=== PATIENT | female | born 2000 | race Two or more races ===

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

== ENCOUNTER 2021-01-13 06:27 | Emergency (ER) | payer OTHER, SELFPAY ==
--- NOTE | 2021-01-13 | ECG_ITS ---
Test Reason : CHEST PAIN Blood Pressure : / mmHG Vent. Rate : 119 BPM Atrial Rate : 119 BPM P-R Int : 114 ms QRS Dur : 076 ms QT Int : 324 ms P-R-T Axes : 080 088 024 degrees QTc Int : 455 ms Poor data quality Sinus tachycardia Nonspecific ST abnormality Abnormal ECG No previous ECGs available Referred By: Vic Ramirez Electronically Signed By:CHRIST FRANCO MD
--- NOTE | ~2021-01-13 | XR_ITS ---
EXAMINATION: XR CHEST CLINICAL INFORMATION: Chest pain and shortness of breath COMPARISON: Previous chest x-ray June 2020 TECHNIQUE: 2 views of the chest were obtained. FINDINGS: The cardiac and mediastinal contours are normal. The lungs are clear. There is no pleural effusion or pneumothorax. Bony structures are unremarkable. XR/XR chest 2V IMPRESSION: Unremarkable examination.
--- NOTE | ~2021-01-13 | US_ITS ---
EXAMINATION: OB ULTRASOUND LIMITED CLINICAL INFORMATION: Decreased movement. Abdominal pain. COMPARISON: Previous exams most recent 12/18/2020 TECHNIQUE: Transabdominal second trimester OB ultrasound FINDINGS: There is a single viable intrauterine fetus in cephalic position. heart rate is 149 bpm. movement is seen. There is a posterior placenta with grade 1 changes. Amniotic fluid volume is subjectively normal. US/US OB limited IMPRESSION: Single viable intrauterine fetus in cephalic position.
[2021-01-13 06:42] VITALS: BP 113/61; PULSE 120; RESP 16; TEMP 36.1; O2SAT 94; BMI 25.7
--- NOTE | 2021-01-13 07:43 | ED.CHESTPAIN ---
HPI - Chest Pain General Chief Complaint: Chest Pain Stated Complaint: ASTHMA/ABD PAIN Time Seen by Provider: 01/13/21 06:37 Source: patient Mode of arrival: ambulatory Limitations: no limitations History of Present Illness HPI narrative: 20-year-old female, G2, P1, 22 weeks who presents emergency department for evaluation of chest pain abdominal pain. The patient states that she developed chest pain that started yesterday, mid afternoon. She states the pain came on gradually initially was mild but has now become more severe. She describes the pain as a constant, stabbing sensation, worse with breathing, associated with shortness of breath and dyspnea on exertion, the pain is 9/10. The patient points to her anterior and lateral chest bilaterally when asked to localize the pain. She also is complaining of lower abdominal pain. This began last night. She states this pain is intermittent. This pain is a ?crushing sensation which is 9/10 at its worst. The patient states that she cannot feel her baby moving and the baby was very active prior to the onset of her pain. She has not had any vaginal discharge. She denied fever, chills, nausea, vomiting, frequency, urgency or dysuria. The patient has not had a COVID-19 infection and has not had a COVID-19 vaccination. Related Data Home Medications Medication Instructions Recorded Confirmed albuterol sulfate 90 mcg/actuation 2 puff INHALATION Q6H PRN 09/18/20 10/30/20 aerosol inhaler fluticasone 500 mcg-salmeterol 50 1 inh INHALATION BID 09/18/20 mcg/dose blistr powdr for inhalation Previous Rx's Medication Instructions Recorded vits no.130-ferrous fum 1 tab PO DAILY #30 tab 09/18/20 27 mg iron-folic acid 800 mcg tablet cefpodoxime 100 mg PO Q12H #14 tab 09/27/20 ondansetron HCl [Zofran] 4 mg PO Q6H #20 tab 09/27/20 ondansetron 4 mg PO Q6-8H PRN #20 tab 10/12/20 valacyclovir 500 mg tablet 500 mg PO DAILY 30 Days #30 tab 12/31/20 prednisone 60 mg PO DAILY 5 Days #15 tab 01/13/21 Allergies Allergy/AdvReac Type Severity Reaction Status Date / Time sunflower seeds Allergy Mild Unknown Uncoded 10/12/20 01:08 ANIMALS Allergy Unknown SHORTNESS Uncoded 10/12/20 01:08 OF BREATH animals Allergy Unknown Unknown Uncoded 10/12/20 01:08 seasonal Allergy Unknown Unknown Uncoded 10/12/20 01:08 SEASONAL ALLERGIES Allergy Unknown SHORTNESS Uncoded 10/12/20 01:08 OF BREATH SEEDS Allergy Unknown UNKNOWN Uncoded 10/12/20 01:08 Review of Systems Review of Systems: Yes all other systems are reviewed and are negative [facility] Past Medical History [facility] Narrative: The patient has a history of asthma, she denies tobacco and alcohol use. She does smoke marijuana 1-2 times per day. She denies other drug use. Medical History Asthma Herpes Surgical History Hx of wisdom tooth extraction Family History Family History Father Lyme disease Stroke Depression Mother Depression Anxiety History of bipolar disorder Maternal Grandmother Fibromyalgia Depression Anxiety HTN (hypertension) Diabetes mellitus Paternal Grandmother Diabetes mellitus CVD (cardiovascular disease) Paternal Grandfather Diabetes mellitus Social History Social History Household Members: Family and Children Alcohol intake: never Smoking Status: Never smoker Tobacco Type: Cigarette Use of substances other than those prescribed or required for medical reasons: Yes Substance Use Type: Marijuana Last Used Substance: Days (ago) Advance Directives: Yes Advance Directives Information Provided: Yes Advance Directives on File: No Gender identity: female Physical Exam Vital Signs: Vital Signs: Last Vital Signs Temp 97.0 F 01/13/21 06:42 Pulse 113 H 01/13/21 08:58 Resp 16 01/13/21 09:14 BP 113/69 01/13/21 08:13 Pulse Ox 96 01/13/21 08:13 Body Mass Index 25.7 Const: General: cooperative and healthy appearing Orientation/consciousness: oriented to person and oriented to place Limitations: no limitations HENMT: Head: Yes normal to inspection, Yes normocephalic and Yes atraumatic Ears: external ears normal General nose exam: Normal external nose present Face and sinus: Yes normal facial exam Mouth: Normal oral and palatal mucosa present Throat: Yes posterior oropharynx normal Eyes: Periorbital: periorbital findings normal Eyelids: Yes eyelids normal Conjunctivae: conjunctivae normal Sclerae: sclerae normal Corneas: corneas normal Pupils: Equal, round and reactive pupils present Direct Ophthalmoscopy: normal light reflex Neck: Neck: Yes full ROM, Yes no lymphadenopathy, Yes no meningeal signs, Yes trachea midline and Yes supple Chest: Chest palpation & inspection: normal inspection of the chest and tenderness (Moderate anterior chest and bilateral ribs tenderness) Resp: Effort & Inspection: normal respiratory effort and able to speak in complete sentences Auscultation: rhonchi throughout and wheezes throughout Cardio: Rate: regular rate Rhythm: regular rhythm Heart sounds: S1 normal heart sound present, S2 normal heart sound present and no murmurs GI: Inspection: Yes other (Gravid abdomen) Palpation (GI): Soft to palpation, Tenderness to palpation present (GI) in the LLQ (Mild), in the RLQ (Mild) and suprapubicly (Moderate), no guarding, not rigid and No hepatosplenomegaly present : General: Yes no CVA tenderness Back/Spine/Pelvis: Back: no CVA tenderness Cervical Spine: normal cervical lordosis Thoracic/Lumbar Spine: thoracic and lumbar spine normal to inspection Skin: Lesions: no lesions Rashes: no rashes Wounds: no wounds Neuro: General: oriented to person, oriented to place and no meningeal signs Cranial nerves: Yes CN's II-XII intact bilaterally and Yes Equal, round and reactive pupils present Cognition (Neuro): normal cognition Motor exam (neuro): 5/5 motor strength present throughout Extrem: General: Yes normal to inspection and Yes full ROM Psych: Appearance: well kempt Mental Status: mental status grossly normal Speech and movement: Normal speech and movement present Affect: normal affect Attitude: cooperative Thought process: Normal thought process present Thought content: Normal thought content present Course Course Course Narrative: 20-year-old female, G2, P1, who presents emergency department for evaluation of chest pain, abdominal pain and decreased movement. Physical examination revealed that she was afebrile and had a normal blood pressure. The patient is tachycardic with a pulse of 120 and a normal respiratory of 16. The O2 saturation was 94% on room air. Patient does have chest wall tenderness along the costochondral joints and lateral chest, she also has lower abdominal tenderness. Lung exam revealed diffuse wheezing and rhonchi. I did order a CBC, CMP, lipase, D-dimer, chest x-ray, and ultrasound of the patient's abdomen to evaluate the fetus. Patient was ordered to get normal saline IV x1 L and Tylenol 975 mg orally. She was also ordered to get albuterol 2.5 mg nebulizer for her wheezing and rhonchi. 0941: The patient is feeling significantly better after the above treatment, she states that her chest pain is almost completely resolved in her breathing feels better after the albuterol treatment. Repeat lung exam revealed improvement of her wheezing and rhonchi. Laboratory evaluation revealed a slight elevation in D-dimer 235 however I do not think the patient has a pulmonary embolism and her symptoms are more consistent with asthma exacerbation. Ultrasound revealed a single intrauterine with normal heart tones of 149 beats per minute. I did discuss these findings with the patient. Patient will be started on prednisone 60 mg once a day for 5 days, she was given her 1st dose here in the emergency department. She was also advised to use your inhaler 2 puffs 4 times a day for the next 2-3 days to improve her wheezing. She was given verbal and printed instructions, advised to follow-up with her PCP/OBGYN and return to the emergency department for symptoms get worse or strokes on symptoms that are concerning to her. Urinalysis was negative MDM - Chest Pain Lab Data Result diagrams: 01/13/21 08:00 01/13/21 08:00 Labs: Lab Results 01/13/21 01/13/21 01/13/21 Range/Units 08:00 08:00 08:00 WBC 9.5 (4.8-10.8) X10*3/uL RBC 4.37 (4.20-5.50) X10*6/uL Hgb 13.0 (12.0-16.0) g/dl Hct 38.3 (37-47) % MCV 87.6 (80-98) fL MCH 29.7 (27.0-33.0) pg MCHC 33.9 (31.0-35.0) g/dl RDW 13.7 (11.0-16.0) % Plt Count 272 (160-400) X10*3/uL MPV 9.8 (9.4-12.3) fL Immature Gran % (Auto) 0.4 (0.0-0.4) % Neut % (Auto) 89.2 H (45-73) % Lymph % (Auto) 7.4 L (20-40) % [place] % (Auto) 2.8 (2-11) % Eos % (Auto) 0.0 (0-4) % Baso % (Auto) 0.2 (0-2) % Lymph # (Auto) 0.7 L (1.2-4.9) X10*3/uL [place] # (Auto) 0.3 (0.1-1.2) X10*3/uL Eos # (Auto) 0.0 (0.0-0.4) X10*3/uL Baso # (Auto) 0.0 (0.0-0.2) X10*3/uL Abs Immat Gran (auto) 0.04 H (0.00-0.03) X10*3/uL Absolute Neuts (auto) 8.5 H (2.0-8.3) X10*3/uL Absolute Nucleated RBC 0.000 (0.0-0.012) X10*3/uL Nucleated RBC % (auto) 0.0 (0.0-0.2) /100WBC D-Dimer 235 NG/ML Sodium 140 (135-145) mmol/L Potassium 4.4 (3.3-5.1) mmol/L Chloride 107 (96-108) mmol/L Carbon Dioxide 20 L (22-29) mmol/L Anion Gap 17 (12-20) BUN 5 L (9-16) mg/dL Creatinine 0.58 (0.5-1.4) mg/dL Estim Creat Clear Calc 136.9 Estimated GFR > 60 Random Glucose 108 (60-115) mg/dL Calcium 9.0 (8.4-10.2) mg/dL Total Bilirubin 0.5 (0.0-1.0) mg/dL AST 15 (5-31) U/L ALT 12 (0-31) U/L Alkaline Phosphatase 66 D (39-117) U/L Troponin I High Sens (<3.5-17.0) ng/L Total Protein 7.3 (6.5-8.0) g/dL Albumin 3.9 (3.5-5.0) g/dL Lipase 13 (8-78) U/L Urine Color Urine Appearance Urine pH (5.0-8.0) Ur Specific Collins (1.005-1.025) Urine Protein (NEG-TRACE) MG/DL Urine Glucose (UA) (NEG) MG/DL Urine Ketones (NEG) MG/DL Urine Blood (NEG) Urine Nitrite (NEG) Ur Leukocyte Esterase (NEG) 01/13/21 01/13/21 Range/Units 08:00 10:07 WBC (4.8-10.8) X10*3/uL RBC (4.20-5.50) X10*6/uL Hgb (12.0-16.0) g/dl Hct (37-47) % MCV (80-98) fL MCH (27.0-33.0) pg MCHC (31.0-35.0) g/dl RDW (11.0-16.0) % Plt Count (160-400) X10*3/uL MPV (9.4-12.3) fL Immature Gran % (Auto) (0.0-0.4) % Neut % (Auto) (45-73) % Lymph % (Auto) (20-40) % [place] % (Auto) (2-11) % Eos % (Auto) (0-4) % Baso % (Auto) (0-2) % Lymph # (Auto) (1.2-4.9) X10*3/uL [place] # (Auto) (0.1-1.2) X10*3/uL Eos # (Auto) (0.0-0.4) X10*3/uL Baso # (Auto) (0.0-0.2) X10*3/uL Abs Immat Gran (auto) (0.00-0.03) X10*3/uL Absolute Neuts (auto) (2.0-8.3) X10*3/uL Absolute Nucleated RBC (0.0-0.012) X10*3/uL Nucleated RBC % (auto) (0.0-0.2) /100WBC D-Dimer NG/ML Sodium (135-145) mmol/L Potassium (3.3-5.1) mmol/L Chloride (96-108) mmol/L Carbon Dioxide (22-29) mmol/L Anion Gap (12-20) BUN (9-16) mg/dL Creatinine (0.5-1.4) mg/dL Estim Creat Clear Calc Estimated GFR Random Glucose (60-115) mg/dL Calcium (8.4-10.2) mg/dL Total Bilirubin (0.0-1.0) mg/dL AST (5-31) U/L ALT (0-31) U/L Alkaline Phosphatase (39-117) U/L Troponin I High Sens < 3.5 (<3.5-17.0) ng/L Total Protein (6.5-8.0) g/dL Albumin (3.5-5.0) g/dL Lipase (8-78) U/L Urine Color YELLOW Urine Appearance CLEAR Urine pH 6.0 (5.0-8.0) Ur Specific Collins 1.025 (1.005-1.025) Urine Protein NEG (NEG-TRACE) MG/DL Urine Glucose (UA) NEG (NEG) MG/DL Urine Ketones >=80 (NEG) MG/DL Urine Blood NEG (NEG) Urine Nitrite NEG (NEG) Ur Leukocyte Esterase NEG (NEG) Discharge Plan Discharge Clinical Impression: Asthma exacerbation Qualifiers: Asthma severity: moderate Asthma persistence: unspecified Qualified Code(s): J45.901 - Unspecified asthma with (acute) exacerbation Qualifiers: Weeks of gestation: 23 weeks Qualified Code(s): Z3A.23 - 23 weeks gestation of Chest pain Qualifiers: Chest pain type: other chest pain Qualified Code(s): R07.89 - Other chest pain Patient Disposition: Home, Self-Care Instructions: Asthma (ED) Additional Instructions: Your blood work was unremarkable. Your chest x-ray was normal. The ultrasound revealed that you have a single in the uterus with a normal heartbeat which is reassuring. Your chest pain and shortness of breath is most likely secondary to a flare-up of your asthma. Take prednisone 60 mg once a day for 5 days, your given her 1st dose here in the emergency department. Use your albuterol inhaler, 2 puffs 4 times a day for the next 3-4 days to help with your wheezing in her shortness of breath. Take Tylenol (acetaminophen) 500 mg pills, 2 pills every 4 to 6 hours as needed for pain. Follow-up with your doctor in 2 days. Please return to the emergency department if your symptoms get worse or if you develop any symptoms that are concerning to you. Prescriptions: New prednisone 20 mg tablet 60 mg PO DAILY 5 Days Qty: 15 RF: 0 No Action ondansetron 4 mg tablet,disintegrating 4 mg PO Q6-8H PRN (Reason: Nausea And Vomiting) Qty: 20 RF: 0 ondansetron HCl [Zofran] 4 mg tablet 4 mg PO Q6H Qty: 20 RF: 0 cefpodoxime 100 mg tablet 100 mg PO Q12H Qty: 14 RF: 0 fluticasone propion-salmeterol [Advair Diskus] 500-50 mcg/dose blister with device 1 inh inhalation BID RF: 0 albuterol sulfate [ProAir HFA] 90 mcg/actuation HFA aerosol inhaler 2 puff inhalation Q6H PRNRF: 0 Vitamin 27 mg iron- 800 mcg tablet 1 tab PO DAILY Qty: 30 RF: 12 valacyclovir [Valtrex] 500 mg tablet 500 mg PO DAILY 30 Days Qty: 30 RF: 2 Interventions: ED Discharge Assessment Last Done: 01/13/21 10:12 Discharge Date/Time: 01/13/21 10:12
[2021-01-13 07:45] VITALS: PULSE 105
--- NOTE | 2021-01-13 07:51 | PC.NURSE ---
,pt states that she is 22wks and is due 05/16/21.
[2021-01-13 08:06] LABS: MANUAL DIFF FLAG NO
[2021-01-13 08:09] LABS: Basophils Percent Auto 0.2 % (0-2); Hematocrit 38.3 % (37-47); Imm Gran Abs Auto 0.04 X10*3/uL (0.00-0.03); Imm Gran Pct Auto 0.4 % (0.0-0.4); Lymphocytes Absolute Auto 0.7 X10*3/uL (1.2-4.9); Lymphocytes Percent Auto 7.4 % (20-40); Mean Corpuscular HGB Conc 33.9 g/dl (31.0-35.0); Mean Corpuscular Hemoglobin 29.7 pg (27.0-33.0); Mean Corpuscular Volume 87.6 fL (80-98); Mean Platelet Volume 9.8 fL (9.4-12.3); Monocytes Absolute Auto 0.3 X10*3/uL (0.1-1.2); Monocytes Percent Auto 2.8 % (2-11); Neutrophils Absolute Auto 8.5 X10*3/uL (2.0-8.3); Neutrophils Percent Auto 89.2 % (45-73); Platelet Count 272 X10*3/uL (160-400); Red Blood Count 4.37 X10*6/uL (4.20-5.50); Red Cell Distribution Width 13.7 % (11.0-16.0); White Blood Count 9.5 X10*3/uL (4.8-10.8)
[2021-01-13] MEDS: 0.9 % Sodium Chloride 1,000 ML 999 ML IV (08:11)
[2021-01-13] MEDS: Acetaminophen 325 MG TABLET 975 MG PO (08:11)
[2021-01-13 08:13] VITALS: BP 113/69; PULSE 104; RESP 20; O2SAT 96
[2021-01-13 08:17] LABS: D Dimer 235 NG/ML
--- NOTE | 2021-01-13 08:29 | PC.NURSE ---
pt c/o chest tightness - lungs exp wheezing all lobes. md aware.
[2021-01-13 08:37] LABS: Alanine Aminotransferase 12 U/L (0-31); Albumin Level 3.9 g/dL (3.5-5.0); Alkaline Phosphatase 66 U/L (39-117); Anion Gap 17 (12-20); Aspartate Amino Transferase 15 U/L (5-31); Bilirubin Total 0.5 mg/dL (0.0-1.0); Blood Urea Nitrogen 5 mg/dL (9-16); Carbon Dioxide 20 mmol/L (22-29); Chloride 107 mmol/L (96-108); Creatinine Clr Calc Pharmacy 136.9; Estimated Glomerular Filt Rate > 60; Glucose Random 108 mg/dL (60-115); Lipase 13 U/L (8-78); Potassium 4.4 mmol/L (3.3-5.1); Sodium 140 mmol/L (135-145); Total Protein 7.3 g/dL (6.5-8.0)
[2021-01-13 08:41] LABS: Troponin-I High Sensitivity < 3.5 ng/L (<3.5-17.0)
[2021-01-13] MEDS: Albuterol Sulfate (0.083%) 2.5 MG/3 ML VIAL.NEB INHALE (08:57)
[2021-01-13 08:58] VITALS: PULSE 113; O2SAT 98
[2021-01-13 09:14] VITALS: RESP 16
[2021-01-13 10:40] LABS: Glucose Urine UA NEG (NEG); Leukocyte Esterase Urine NEG (NEG); Nitrite Urine NEG (NEG); Specific Gravity - Urine 1.025 (1.005-1.025); Urine Blood NEG (NEG); Urine Ketones >=80 MG/DL (NEG); Urine Protein NEG (NEG-TRACE)
[2021-01-13 10:47] LABS: Appearance Urine CLEAR; Color Urine YELLOW
== END 2021-01-13 10:12 | disposition home or self-care (01) ==
PROVIDERS: Emergency Provider Emergency Medicine Emergency Medical Services
DX: O26.92 Pregnancy related conditions, unspecified, second trimester (principal); Z3A.22 22 weeks gestation of pregnancy; Z79.899 Other long term (current) drug therapy
CPT/HCPCS: 36415; 71046; 76815; 80053; 81003; 83690; 84484; 85025; 85379; 93005; 94640; 96360; 99285

== ENCOUNTER → 2021-01-28 09:02 | Outpatient (BNVA) | payer OTHER, SELFPAY | PROVIDERS: Visit Provider Advanced Practice Midwife | DX: O99.512 Diseases of the respiratory system complicating pregnancy, second trimester (principal); J45.909 Unspecified asthma, uncomplicated; Z91.018 Allergy to other foods; Z3A.24 24 weeks gestation of pregnancy | CPT/HCPCS: 81003; 99212 ==

== ENCOUNTER 2021-02-25 08:46 | Outpatient (REF) | payer OTHER, SELFPAY | END 2021-02-25 08:47 | disposition home or self-care (01) | LOC: HO.LAB 08:46 | PROVIDERS: Visit Provider Advanced Practice Midwife | DX: O26.893 Other specified pregnancy related conditions, third trimester (principal); R10.2 Pelvic and perineal pain; M25.551 Pain in right hip | CPT/HCPCS: 81003; 99212 ==

== ENCOUNTER → 2021-03-11 10:37 | Outpatient (BNVA) | payer OTHER, SELFPAY | PROVIDERS: Visit Provider Advanced Practice Midwife | DX: O36.5930 Maternal care for other known or suspected poor fetal growth, third trimester, not applicable or unspecified (principal); Z3A.30 30 weeks gestation of pregnancy | CPT/HCPCS: 81003; 99212 ==

== ENCOUNTER 2021-03-17 13:52 | Outpatient (REF) | payer OTHER, SELFPAY ==
--- NOTE | ~2021-03-17 | US_ITS ---
EXAMINATION: OBSTETRICAL ULTRASOUND, Follow up HISTORY: 20-year-old at 31.3 weeks Size date discrepancy COMPARISON: 01/13/2021 TECHNIQUE: Real time transabdominal imaging with color and M-mode Doppler. PRESENTATION: Vertex PLACENTA LOCATION: Posterior AMNIOTIC FLUID: Within normal limits, BPP 7.2 cm MEASUREMENTS: 1. Biparietal Diameter: 4.5 cm; 30.1 wks 2. Head Circumference: 27.7 cm; 30.1 wks 3. Abdominal Circumference: 25.5 cm; 29.5 wks 4. Femur Length: 5.8 cm; 30.3 wks 5. Heart Rate: 147 beats per minute WEIGHT: EFW: 1484 grams (3 lbs 4 oz) -- 7 %. BIOPHYSICAL PROFILE: Motion: 2 Tone: 2 Breathin Amniotic Fluid: 2 Total score: 8/8 Doppler evaluation of the umbilical artery showed SD ratio of 2.7 which is within normal range. GESTATIONAL AGE: 1. Established GA: 31.3 wks 2. GA from A: 30.1 wks ESTIMATED DATE OF DELIVERY: 1. Established ERIKA: 05/16/2021 2. ERIKA from [facility]: 05/25/2021 US/US OB follow up IMPRESSION: 1. A single active fetus is in vertex presentation. 2. The size less than dates, EFW corresponds to 7th percentile. Compared to prior exam, there has been less than expected interval growth. 3. Reassuring biophysical profile with normal amniotic fluid volume. 4. Normal umbilical artery Doppler study. She had a term delivery of a healthy infant with weight of 6 lbs. 7 oz. As long as the interval growth is appropriate, she can be managed expectantly until 39 weeks of gestation. Meanwhile, weekly NST, biophysical profile along with UA Doppler should be performed. Thank you very much for this referral. This note was generated with a voice recognition program. Please excuse any errors which may have been overlooked during my review of this note. Sometimes these errors may affect the content or meaning of a given sentence.
--- NOTE | ~2021-03-17 | US_ITS ---
EXAMINATION: OBSTETRICAL ULTRASOUND, Follow up HISTORY: 20-year-old at 31.3 weeks Size date discrepancy COMPARISON: 01/13/2021 TECHNIQUE: Real time transabdominal imaging with color and M-mode Doppler. PRESENTATION: Vertex PLACENTA LOCATION: Posterior AMNIOTIC FLUID: Within normal limits, BPP 7.2 cm MEASUREMENTS: 1. Biparietal Diameter: 4.5 cm; 30.1 wks 2. Head Circumference: 27.7 cm; 30.1 wks 3. Abdominal Circumference: 25.5 cm; 29.5 wks 4. Femur Length: 5.8 cm; 30.3 wks 5. Heart Rate: 147 beats per minute WEIGHT: EFW: 1484 grams (3 lbs 4 oz) -- 7 %. BIOPHYSICAL PROFILE: Motion: 2 Tone: 2 Breathin Amniotic Fluid: 2 Total score: 8/8 Doppler evaluation of the umbilical artery showed SD ratio of 2.7 which is within normal range. GESTATIONAL AGE: 1. Established GA: 31.3 wks 2. GA from [facility]: 30.1 wks ESTIMATED DATE OF DELIVERY: 1. Established ERIKA: 05/16/2021 2. ERIKA from [facility]: 05/25/2021 US/US OB velocimetry umbilical ar IMPRESSION: 1. A single active fetus is in vertex presentation. 2. The size less than dates, EFW corresponds to 7th percentile. Compared to prior exam, there has been less than expected interval growth. 3. Reassuring biophysical profile with normal amniotic fluid volume. 4. Normal umbilical artery Doppler study. She had a term delivery of a healthy with weight of 6 lbs. 7 oz. As long as the interval growth is appropriate, she can be managed expectantly until 39 weeks of gestation. Meanwhile, weekly NST, biophysical profile along with UA Doppler should be performed. Thank you very much for this referral. This note was generated with a voice recognition program. Please excuse any errors which may have been overlooked during my review of this note. Sometimes these errors may affect the content or meaning of a given sentence.
== END 2021-03-17 13:53 | disposition home or self-care (01) ==
LOC: HO.US 13:52
PROVIDERS: Visit Provider Advanced Practice Midwife
DX: O36.5930 Maternal care for other known or suspected poor fetal growth, third trimester, not applicable or unspecified (principal)
CPT/HCPCS: 76816; 76820

== ENCOUNTER 2021-03-19 09:27 | Outpatient (REF) | payer OTHER, SELFPAY | END 2021-03-19 09:28 | disposition home or self-care (01) | LOC: HO.US 09:27 | PROVIDERS: Visit Provider Advanced Practice Midwife | DX: O36.5930 Maternal care for other known or suspected poor fetal growth, third trimester, not applicable or unspecified (principal) | CPT/HCPCS: 59025; 81003; 99212 ==

== ENCOUNTER 2021-03-23 13:51 | Outpatient (REF) | payer OTHER, SELFPAY | END 2021-03-23 13:52 | disposition home or self-care (01) | LOC: HO.LAB 13:51 | PROVIDERS: Visit Provider Obstetrics & Gynecology | DX: O26.893 Other specified pregnancy related conditions, third trimester (principal); R30.0 Dysuria; O36.5930 Maternal care for other known or suspected poor fetal growth, third trimester, not applicable or unspecified; O99.323 Drug use complicating pregnancy, third trimester; F12.10 Cannabis abuse, uncomplicated; Z3A.32 32 weeks gestation of pregnancy | CPT/HCPCS: 59025; 81003; 87086; 87088; 87186; 99212 ==

== ENCOUNTER → 2021-03-25 08:20 | Outpatient (BNVA) | payer OTHER, SELFPAY | PROVIDERS: Visit Provider Advanced Practice Midwife | DX: Z34.93 Encounter for supervision of normal pregnancy, unspecified, third trimester (principal); Z3A.32 32 weeks gestation of pregnancy | CPT/HCPCS: 59025; 99212 ==

== ENCOUNTER 2021-03-26 10:28 | Outpatient (REF) | payer OTHER, SELFPAY ==
--- NOTE | ~2021-03-26 | US_ITS ---
EXAMINATION: US OBSTETRICAL (BIOPHYSICAL PROFILE) CLINICAL INFORMATION: 21-year-old at 32.5 weeks of gestation FDG are COMPARISON: 03/17/2021 TECHNIQUE: Biophysical profile is performed over 30 minutes with assessment of breathing, gross body movement, tone, and qualitative amniotic fluid volume. FINDINGS: POSITION: Cephalic PLACENTA: Posterior without previa AMNIOTIC FLUID INDEX: 13.2 cm CARDIAC ACTIVITY: 138 beats per minute BIOPHYSICAL PROFILE: Motion: 2 Tone: 2 Breathin Amniotic Fluid: 2 The total biophysical score is 8/8 The UA Doppler showed the SD ratio of 3.8 which has been stable. US/US OB velocimetry umbilical ar IMPRESSION: 1. Single intrauterine gestation in vertex position. 2. Reassuring BPP and GARY width normal SD ratio in the umbilical cord Thank you for allowing me to participate in her care. She is to follow-up next week for a repeat growth and testing. This note was generated with a voice recognition program. Please excuse any errors which may have been overlooked during my review of this note. Sometimes these errors may affect the content or meaning of a given sentence.
--- NOTE | ~2021-03-26 | US_ITS ---
EXAMINATION: US OBSTETRICAL (BIOPHYSICAL PROFILE) CLINICAL INFORMATION: 21-year-old at 32.5 weeks of gestation FDG are COMPARISON: 03/17/2021 TECHNIQUE: Biophysical profile is performed over 30 minutes with assessment of breathing, gross body movement, tone, and qualitative amniotic fluid volume. FINDINGS: POSITION: Cephalic PLACENTA: Posterior without previa AMNIOTIC FLUID INDEX: 13.2 cm CARDIAC ACTIVITY: 138 beats per minute BIOPHYSICAL PROFILE: Motion: 2 Tone: 2 Breathin Amniotic Fluid: 2 The total biophysical score is 8/8 The UA Doppler showed the SD ratio of 3.8 which has been stable. US/US OB biophysical profile IMPRESSION: 1. Single intrauterine gestation in vertex position. 2. Reassuring BPP and GARY width normal SD ratio in the umbilical cord Thank you for allowing me to participate in her care. She is to follow-up next week for a repeat growth and testing. This note was generated with a voice recognition program. Please excuse any errors which may have been overlooked during my review of this note. Sometimes these errors may affect the content or meaning of a given sentence.
== END 2021-03-26 10:29 | disposition home or self-care (01) ==
LOC: HO.US 10:28
PROVIDERS: Visit Provider Advanced Practice Midwife
DX: O36.5930 Maternal care for other known or suspected poor fetal growth, third trimester, not applicable or unspecified (principal)
CPT/HCPCS: 76819; 76820

== ENCOUNTER → 2021-03-31 15:04 | Outpatient (BNVA) | payer OTHER, SELFPAY | PROVIDERS: Visit Provider Obstetrics & Gynecology | DX: O36.5930 Maternal care for other known or suspected poor fetal growth, third trimester, not applicable or unspecified (principal); O98.513 Other viral diseases complicating pregnancy, third trimester; B00.9 Herpesviral infection, unspecified; Z3A.33 33 weeks gestation of pregnancy | CPT/HCPCS: 59025; 99212 ==

== ENCOUNTER 2021-04-02 10:43 | Outpatient (REF) | payer OTHER, SELFPAY ==
--- NOTE | ~2021-04-02 | US_ITS ---
EXAMINATION: OBSTETRICAL ULTRASOUND, Follow up HISTORY: 21-year-old at the 33.5 weeks of gestation Size less than dates COMPARISON: 03/26/2021 TECHNIQUE: Real time transabdominal imaging with color and M-mode Doppler. PRESENTATION: Vertex PLACENTA LOCATION: Posterior without previa AMNIOTIC FLUID: GARY 13.8 cm MEASUREMENTS: 1. Biparietal Diameter: 7.96 cm; 32.0 wks 2. Head Circumference: 29.0 cm; 22.0 wks 3. Abdominal Circumference: 28.4 cm; 32.3 wks 4. Femur Length: 5.96 cm; 31.1 wks 5. Heart Rate: 119 beats per minute WEIGHT: EFW: 1864 grams (4 lbs 2 oz) -- 6 %. BIOPHYSICAL PROFILE: Motion: 2 Tone: 2 Breathin Amniotic Fluid: 2 Total score: 8/8 UA Doppler showed the SD ratio of 2.9 which is within normal range. GESTATIONAL AGE: 1. Established GA: 33.5 wks 2. GA from A: 32.0 wks ESTIMATED DATE OF DELIVERY: 1. Established ERIKA: 05/16/2021 2. ERIKA from [facility]: 05/28/2021 US/US OB follow up IMPRESSION: 1. A single active fetus is in vertex presentation 2. Size less than dates. EFW corresponds to 6th percentile. However compared to her prior exam, there has been an appropriate interval growth. 3. Reassuring biophysical profile 4. Normal UA Doppler S/D ratio I reviewed today's ultrasound findings and reassured her that there has been an appropriate interval growth. In addition testing is reassuring along with the Doppler evaluation of the umbilical artery. Patient reports active movements. I recommended that she continue NST weekly along with facet biophysical profile and Doppler evaluation. Thank you very much for this referral. Total time 20 minutes. The time spent was devoted to counseling the patient about the disease and diagnosis, coordinating care including reviewing her records, pertinent lab data and studies, as well as discussing diagnostic evaluation and workup, plan therapeutic interventions and future disposition of care. This includes any additional research needed to obtain further information in formulating the plan of care of this patient. This note was generated with a voice recognition program. Please excuse any errors which may have been overlooked during my review of this note. Sometimes these errors may affect the content or meaning of a given sentence.
--- NOTE | ~2021-04-02 | US_ITS ---
EXAMINATION: OBSTETRICAL ULTRASOUND, Follow up HISTORY: 21-year-old at the 33.5 weeks of gestation Size less than dates COMPARISON: 03/26/2021 TECHNIQUE: Real time transabdominal imaging with color and M-mode Doppler. PRESENTATION: Vertex PLACENTA LOCATION: Posterior without previa AMNIOTIC FLUID: GARY 13.8 cm MEASUREMENTS: 1. Biparietal Diameter: 7.96 cm; 32.0 wks 2. Head Circumference: 29.0 cm; 22.0 wks 3. Abdominal Circumference: 28.4 cm; 32.3 wks 4. Femur Length: 5.96 cm; 31.1 wks 5. Heart Rate: 119 beats per minute WEIGHT: EFW: 1864 grams (4 lbs 2 oz) -- 6 %. BIOPHYSICAL PROFILE: Motion: 2 Tone: 2 Breathin Amniotic Fluid: 2 Total score: 8/8 UA Doppler showed the SD ratio of 2.9 which is within normal range. GESTATIONAL AGE: 1. Established GA: 33.5 wks 2. GA from [facility]: 32.0 wks ESTIMATED DATE OF DELIVERY: 1. Established ERIKA: 05/16/2021 2. ERIKA from [facility]: 05/28/2021 US/US OB velocimetry umbilical ar IMPRESSION: 1. A single active fetus is in vertex presentation 2. Size less than dates. EFW corresponds to 6th percentile. However compared to her prior exam, there has been an appropriate interval growth. 3. Reassuring biophysical profile 4. Normal UA Doppler S/D ratio I reviewed today's ultrasound findings and reassured her that there has been an appropriate interval growth. In addition testing is reassuring along with the Doppler evaluation of the umbilical artery. Patient reports active movements. I recommended that she continue NST weekly along with facet biophysical profile and Doppler evaluation. Thank you very much for this referral. Total time 20 minutes. The time spent was devoted to counseling the patient about the disease and diagnosis, coordinating care including reviewing her records, pertinent lab data and studies, as well as discussing diagnostic evaluation and workup, plan therapeutic interventions and future disposition of care. This includes any additional research needed to obtain further information in formulating the plan of care of this patient. This note was generated with a voice recognition program. Please excuse any errors which may have been overlooked during my review of this note. Sometimes these errors may affect the content or meaning of a given sentence.
[2021-04-02 15:41] LABS: Syphilis Screen Nonreactive (Nonreactive)
[2021-04-03 13:22] LABS: Cytomegalovirus Ab IgG <0.60 U/mL; Cytomegalovirus Ab IgM <30.00 AU/mL; Toxoplasma IgG Antibody <7.20 IU/mL; Toxoplasma IgM Antibody <8.00 AU/mL
== END 2021-04-02 10:44 | disposition home or self-care (01) ==
LOC: HO.US 10:43
PROVIDERS: Obstetrics & Gynecology; Visit Provider Advanced Practice Midwife
DX: O36.5930 Maternal care for other known or suspected poor fetal growth, third trimester, not applicable or unspecified (principal); Z3A.33 33 weeks gestation of pregnancy
CPT/HCPCS: 36415; 76816; 76820; 81003; 86644; 86645; 86777; 86778; 86780; 99212

== ENCOUNTER → 2021-04-07 11:04 | Outpatient (BNVA) | payer OTHER, SELFPAY | PROVIDERS: Visit Provider Advanced Practice Midwife | DX: O36.5930 Maternal care for other known or suspected poor fetal growth, third trimester, not applicable or unspecified (principal); O09.293 Supervision of pregnancy with other poor reproductive or obstetric history, third trimester; Z86.32 Personal history of gestational diabetes; Z3A.34 34 weeks gestation of pregnancy | CPT/HCPCS: 59025; 81003; 99212 ==

== ENCOUNTER 2021-04-09 10:58 | Outpatient (REF) | payer OTHER, SELFPAY ==
--- NOTE | ~2021-04-09 | US_ITS ---
EXAMINATION: US OBSTETRICAL (BIOPHYSICAL PROFILE) CLINICAL INFORMATION: A 21-year-old at 34.5 weeks of gestation SGA COMPARISON: 04/02/2021 TECHNIQUE: Biophysical profile is performed over 30 minutes with assessment of breathing, gross body movement, tone, and qualitative amniotic fluid volume. FINDINGS: POSITION: Cephalic PLACENTA: Posterior without previa AMNIOTIC FLUID INDEX: 14.3 cm CARDIAC ACTIVITY: 152 beats per minute BIOPHYSICAL PROFILE: Motion: 2 Tone: 2 Breathin Amniotic Fluid: 2 The total biophysical score is 8/8 UA Doppler showed SD ratio of 3.4. US/US OB biophysical profile IMPRESSION: 1. Single intrauterine gestation in vertex position. 2. Reassuring BPP and GARY 3. Normal SD on UA Doppler Continue weekly testing. She is to return next week for of the growth. Thank you for allowing me to participate in her care. This note was generated with a voice recognition program. Please excuse any errors which may have been overlooked during my review of this note. Sometimes these errors may affect the content or meaning of a given sentence.
--- NOTE | ~2021-04-09 | US_ITS ---
EXAMINATION: US OBSTETRICAL (BIOPHYSICAL PROFILE) CLINICAL INFORMATION: A 21-year-old at 34.5 weeks of gestation SGA COMPARISON: 04/02/2021 TECHNIQUE: Biophysical profile is performed over 30 minutes with assessment of breathing, gross body movement, tone, and qualitative amniotic fluid volume. FINDINGS: POSITION: Cephalic PLACENTA: Posterior without previa AMNIOTIC FLUID INDEX: 14.3 cm CARDIAC ACTIVITY: 152 beats per minute BIOPHYSICAL PROFILE: Motion: 2 Tone: 2 Breathin Amniotic Fluid: 2 The total biophysical score is 8/8 UA Doppler showed SD ratio of 3.4. US/US OB velocimetry umbilical ar IMPRESSION: 1. Single intrauterine gestation in vertex position. 2. Reassuring BPP and GARY 3. Normal SD on UA Doppler Continue weekly testing. She is to return next week for of the growth. Thank you for allowing me to participate in her care. This note was generated with a voice recognition program. Please excuse any errors which may have been overlooked during my review of this note. Sometimes these errors may affect the content or meaning of a given sentence.
== END 2021-04-09 10:59 | disposition home or self-care (01) ==
LOC: HO.US 10:58
PROVIDERS: Visit Provider Advanced Practice Midwife
DX: O36.5930 Maternal care for other known or suspected poor fetal growth, third trimester, not applicable or unspecified (principal)
CPT/HCPCS: 76819; 76820

== ENCOUNTER → 2021-04-15 12:59 | Outpatient (BNVA) | payer OTHER, SELFPAY | PROVIDERS: Visit Provider Obstetrics & Gynecology | DX: O36.5930 Maternal care for other known or suspected poor fetal growth, third trimester, not applicable or unspecified (principal); Z3A.35 35 weeks gestation of pregnancy | CPT/HCPCS: 59025; 81003; 99212 ==

== ENCOUNTER 2021-04-16 11:05 | Outpatient (REF) | payer OTHER, SELFPAY ==
--- NOTE | ~2021-04-16 | US_ITS ---
EXAMINATION: OBSTETRICAL ULTRASOUND, Follow up HISTORY: A 21-year-old at 35.5 weeks of gestation growth restriction Size date discrepancy COMPARISON: 04/09/2021 TECHNIQUE: Real time transabdominal imaging with color and M-mode Doppler. PRESENTATION: Vertex PLACENTA LOCATION: Posterior without previa AMNIOTIC FLUID: GARY 16.7 cm MEASUREMENTS: 1. Biparietal Diameter: 8.1 cm; 32.4 wks 2. Head Circumference: 29.8 cm; 33.0 wks 3. Abdominal Circumference: 30.2 cm; 34.2 wks 4. Femur Length: 6.3 cm; 32.6 wks 5. Heart Rate: 138 beats per minute WEIGHT: EFW: 2188 grams (4 lbs 13 oz) -- 6 %. BIOPHYSICAL PROFILE: Motion: 2 Tone: 2 Breathin Amniotic Fluid: 2 Total score: 8/8 UA Doppler: SD 2.6. GESTATIONAL AGE: 1. Established GA: 35.5 wks 2. GA from [facility]: 33.0 wks ESTIMATED DATE OF DELIVERY: 1. Established ERIKA: 05/16/2021 2. ERIKA from [facility]: 06/04/2021 US/US OB velocimetry umbilical ar IMPRESSION: 1. A single active fetus is in vertex presentation 2. Size less than dates, EFW corresponds to 6th percentile. However compared to prior exam, there has been appropriate interval growth 3. Reassuring biophysical profile and UA Doppler evaluation Although the EFW corresponds to 6th percentile, compared to prior exam, there has been appropriate interval growth. She has a daughter with weight of 6 lbs 7 oz. She is healthy and doing well. I informed her that based on today's evaluation, the estimated weight of her fetus should be in the 6 pounds range as well. The testing is reassuring. UA Doppler showed the normal end-diastolic flow. I would recommend continuing weekly BPP and UA Doppler along with NST 2 times per week. We will repeat the growth evaluation in 2 weeks. As long as the fetus continues to grow appropriately, we can continue expectant management until approximately 39 weeks of gestation. Thank you very much for this referral. Total time 30 minutes. The time spent was devoted to counseling the patient about the disease and diagnosis, coordinating care including reviewing her records, pertinent lab data and studies, as well as discussing diagnostic evaluation and workup, plan therapeutic interventions and future disposition of care. This includes any additional research needed to obtain further information in formulating the plan of care of this patient. This note was generated with a voice recognition program. Please excuse any errors which may have been overlooked during my review of this note. Sometimes these errors may affect the content or meaning of a given sentence.
== END 2021-04-16 11:06 | disposition home or self-care (01) ==
LOC: HO.US 11:05
PROVIDERS: Visit Provider Advanced Practice Midwife
DX: O36.5993 Maternal care for other known or suspected poor fetal growth, unspecified trimester, fetus 3 (principal)
CPT/HCPCS: 76816; 76820

== ENCOUNTER → 2021-04-20 13:14 | Outpatient (BNVA) | payer OTHER, SELFPAY | PROVIDERS: Visit Provider Advanced Practice Midwife | DX: O36.5930 Maternal care for other known or suspected poor fetal growth, third trimester, not applicable or unspecified (principal); O36.8330 Maternal care for abnormalities of the fetal heart rate or rhythm, third trimester, not applicable or unspecified; Z3A.35 35 weeks gestation of pregnancy | CPT/HCPCS: 59025; 81003; 99212 ==

== ENCOUNTER 2021-04-20 14:13 | Outpatient (REF) | payer OTHER, SELFPAY ==
--- NOTE | ~2021-04-20 | US_ITS ---
EXAMINATION: US OBSTETRICAL (BIOPHYSICAL PROFILE) CLINICAL INFORMATION: Maternal care for abnormalities of heart. COMPARISON: Ultrasound OB 04/16/2021 TECHNIQUE: Ultrasound of the pelvis is performed. Biophysical profile is performed over 30 minutes with assessment of breathing, gross body movement, tone, and qualitative amniotic fluid volume. Each matrix is scored 0 or 2, depending if the metric is present. Maximum total score possible is 8. Examination is not intended to assess for anomalies. FINDINGS: POSITION: Cephalic. PLACENTA: Posterior. AMNIOTIC FLUID INDEX: 10.70. CARDIAC ACTIVITY: 147 beats per minute BIOPHYSICAL PROFILE: Motion: 2 Tone: 2 Breathin Amniotic Fluid: 2 Total score: 8 US/US OB biophysical profile IMPRESSION: 1. Single intrauterine gestation in cephalic position with posterior placenta. 2. Total biophysical score is 8 (scale 0-8). No change from 04/16/2021 ultrasound OB examination. 3. Amniotic fluid index 10.70 cm. 4. cardiac activity 147 beats per minute.
== END 2021-04-20 14:14 | disposition home or self-care (01) ==
LOC: HO.US 14:13
PROVIDERS: Visit Provider Advanced Practice Midwife
DX: O36.5990 Maternal care for other known or suspected poor fetal growth, unspecified trimester, not applicable or unspecified (principal); O36.8390 Maternal care for abnormalities of the fetal heart rate or rhythm, unspecified trimester, not applicable or unspecified
CPT/HCPCS: 76819

== ENCOUNTER 2021-04-23 09:45 | Outpatient (REF) | payer OTHER, SELFPAY ==
--- NOTE | ~2021-04-23 | US_ITS ---
AUA Doppler showed SD ratio of 2.2.
--- NOTE | ~2021-04-23 | US_ITS ---
EXAMINATION: US OBSTETRICAL (BIOPHYSICAL PROFILE) CLINICAL INFORMATION: 21-year-old at the 36.5 weeks of gestation IUGR COMPARISON: 04/20/2021 TECHNIQUE: Biophysical profile is performed over 30 minutes with assessment of breathing, gross body movement, tone, and qualitative amniotic fluid volume. Color and pulse wave Doppler evaluation was performed. FINDINGS: POSITION: Cephalic PLACENTA: Posterior without previa AMNIOTIC FLUID INDEX: 13.6 cm CARDIAC ACTIVITY: 133 beats per minute BIOPHYSICAL PROFILE: Motion: 2 Tone: 2 Breathin Amniotic Fluid: 2 The total biophysical score is 8/8 UA Doppler: SD 2.2 US/US OB biophysical profile IMPRESSION: 1. Single intrauterine gestation in vertex position. 2. Reassuring BPP and GARY 3. Normal SD ratio in the umbilical artery Thank you for allowing me to participate in her care. Continue weekly testing. Repeat growth next week. This note was generated with a voice recognition program. Please excuse any errors which may have been overlooked during my review of this note. Sometimes these errors may affect the content or meaning of a given sentence.
== END 2021-04-23 09:46 | disposition home or self-care (01) ==
LOC: HO.US 09:45
PROVIDERS: Visit Provider Advanced Practice Midwife
DX: O36.5990 Maternal care for other known or suspected poor fetal growth, unspecified trimester, not applicable or unspecified (principal)
CPT/HCPCS: 76819; 76820

== ENCOUNTER → 2021-04-27 15:17 | Outpatient (BNVA) | payer OTHER, SELFPAY | PROVIDERS: Visit Provider Advanced Practice Midwife | DX: O36.5930 Maternal care for other known or suspected poor fetal growth, third trimester, not applicable or unspecified (principal); O36.8330 Maternal care for abnormalities of the fetal heart rate or rhythm, third trimester, not applicable or unspecified; O98.513 Other viral diseases complicating pregnancy, third trimester; B00.9 Herpesviral infection, unspecified; O99.323 Drug use complicating pregnancy, third trimester; F12.10 Cannabis abuse, uncomplicated; Z3A.36 36 weeks gestation of pregnancy; J30.81 Allergic rhinitis due to animal (cat) (dog) hair and dander; Z91.018 Allergy to other foods; Z91.09 Other allergy status, other than to drugs and biological substances; Z79.899 Other long term (current) drug therapy | CPT/HCPCS: 59025; 99212 ==

== ENCOUNTER 2021-04-30 09:55 | Outpatient (REF) | payer OTHER, SELFPAY ==
--- NOTE | ~2021-04-30 | US_ITS ---
EXAMINATION: OBSTETRICAL ULTRASOUND, Follow up HISTORY: 21-year-old at the 37.5 weeks of gestation FGR Decreased movement COMPARISON: 04/23/2021 TECHNIQUE: Real time transabdominal imaging with color and M-mode Doppler. PRESENTATION: Vertex PLACENTA LOCATION: Posterior without previa AMNIOTIC FLUID: GARY 13.4 MEASUREMENTS: 1. Biparietal Diameter: 8.1 cm; 32.4 wks 2. Head Circumference: 30.6 cm; 34.1 wks 3. Abdominal Circumference: 30.6 cm; 34.5 wks 4. Femur Length: 6.7 cm; 34.2 wks 5. Heart Rate: 144 beats per minute WEIGHT: EFW: 2379 grams (5 lbs 4 oz) -- 3 %. BIOPHYSICAL PROFILE: Motion: 2 Tone: 2 Breathin Amniotic Fluid: 2 Total score: 6/8 UA Doppler: SD 2.7 GESTATIONAL AGE: 1. Established GA: 37.5 wks 2. GA from [facility]: 34.0 wks ESTIMATED DATE OF DELIVERY: 1. Established ERIKA: 05/16/2021 2. ERIKA from [facility]: 06/11/2021 US/US OB velocimetry umbilical ar IMPRESSION: 1. A single active fetus is in vertex presentation 2. Size less than dates, EFW corresponds to the third sent tile. Compared to the EFW from 2 weeks ago, there has been less than expected interval growth 3. BPP score 6 out of 8 4. UA Doppler: SD 2.7 Patient is reporting decreased movements compared to her usual baseline. We discussed to less than expected interval growth compared to prior exam and reviewed the limitations of ultrasound and estimating weights. Given the EFW that corresponds to the third sent tile, decreased movement, I recommend IOL. Thank you very much for this referral. Total time 20 minutes. The time spent was devoted to counseling the patient about the disease and diagnosis, coordinating care including reviewing her records, pertinent lab data and studies, as well as discussing diagnostic evaluation and workup, plan therapeutic interventions and future disposition of care. This includes any additional research needed to obtain further information in formulating the plan of care of this patient. This note was generated with a voice recognition program. Please excuse any errors which may have been overlooked during my review of this note. Sometimes these errors may affect the content or meaning of a given sentence.
== END 2021-04-30 09:56 | disposition home or self-care (01) ==
LOC: HO.US 09:55
PROVIDERS: Visit Provider Advanced Practice Midwife
DX: O36.5990 Maternal care for other known or suspected poor fetal growth, unspecified trimester, not applicable or unspecified (principal); O36.8190 Decreased fetal movements, unspecified trimester, not applicable or unspecified
CPT/HCPCS: 76816; 76820

== ENCOUNTER 2021-08-24 19:56 | Emergency (ER) | payer OTHER, SELFPAY ==
--- NOTE | ~2021-08-24 | XR_ITS ---
EXAMINATION: XR CHEST, 2 VIEWS CLINICAL INFORMATION: Shortness of breath COMPARISON: 01/13/2021 TECHNIQUE: PA and lateral views of the chest were obtained. FINDINGS: Lungs are clear. No consolidation, pneumothorax, or pleural effusion. Cardiac and mediastinal contours are normal. Pulmonary vasculature is unremarkable. Trachea is midline. Osseous structures are unremarkable. XR/XR chest 2V IMPRESSION: Normal chest radiographs.
[2021-08-24 20:00] VITALS: BP 101/64; PULSE 133; RESP 22; TEMP 36.3; O2SAT 92; BMI 25.9
--- NOTE | 2021-08-24 20:30 | ED_ITS ---
HPI - SOB/Dyspnea General Chief Complaint: Dyspnea Stated Complaint: asthma Time Seen by Provider: 08/24/21 20:10 Source: patient Mode of arrival: ambulatory Limitations: no limitations History of Present Illness HPI Narrative: Patient comes emergency room complaining of an asthma exacerbation. Patient states that for the last couple of days she has been having multiple asthma exacerbations, patient states that she has been using nebulization treatments and she is almost out of her pump. Patient denies any fever chills. Patient states that when the weather gets cold that when she has more asthma exacerbations. MD elicited complaint: shortness of breath and asthma attack Related Data Home Medications Medication Instructions Recorded Confirmed albuterol sulfate 90 mcg/actuation 2 puff INHALATION Q6H PRN 09/18/20 04/07/21 aerosol inhaler (ProAir HFA) Previous Rx's Medication Instructions Recorded valacyclovir 1 gram tablet 1,000 mg PO DAILY #30 tab 04/07/21 albuterol sulfate 2.5 mg/0.5 mL 5 mg INHALATION Q4H PRN #30 ea 08/24/21 solution for nebulization albuterol sulfate 90 mcg/actuation 2 puff INHALATION Q4-6H PRN #8.5 g 08/24/21 aerosol inhaler prednisone 50 mg tablet 50 mg PO DAILY #5 tab 08/24/21 Allergies Allergy/AdvReac Type Severity Reaction Status Date / Time sunflower seeds Allergy Mild Unknown Uncoded 04/15/21 13:19 ANIMALS Allergy Unknown SHORTNESS Uncoded 04/15/21 13:19 OF BREATH animals Allergy Unknown Unknown Uncoded 04/15/21 13:19 seasonal Allergy Unknown Unknown Uncoded 04/15/21 13:19 SEASONAL ALLERGIES Allergy Unknown SHORTNESS Uncoded 04/15/21 13:19 OF BREATH SEEDS Allergy Unknown UNKNOWN Uncoded 10/12/20 01:08 Review of Systems Review of Systems: Constitutional : No Weight loss, No Fever, No Chills, No Night Sweats, No Fatigue, No Malaise ENT/Mouth : No Hearing loss, No Ear Pain, No Nasal Congestion, No Sinus Pain, No Hoarseness, No sore throat, No Rhinorrhea, No Swallowing Difficulty Eyes: No Eye Pain, No Swelling, No Redness, No Foreign Body, No Discharge, No Vision Changes Cardiovascular : No Chest Pain, No SOB, No Dyspnea on Exertion, No Orthopnea, No Edema, No Palpitations Respiratory : No Cough, No Sputum, complaining of Wheezing, No Smoke Exposure, complaining of Dyspnea Gastrointestinal : No Nausea, No Vomiting, No Diarrhea, No Constipation, No abdominal Pain, No Hematochezia, No Melena Genitourinary : no irregular bleeding, No Dysuria, No Urinary Frequency, No Hematuria, No Urinary Incontinence, No Urgency, No Flank Pain, No Urinary Flow Changes, No Hesitancy Musculoskeletal : No joint pain, No Myalgias, No Joint Swelling Skin : No Skin Lesions, No rash Neuro : No Weakness, No Numbness, No Paresthesias, No Loss of Consciousness, No Dizziness, No Headache Psych : No Anxiety/Panic, No Depression, No SI/HI/AH/VH, No Social Issues, Heme/Lymph: No Bruising, No Bleeding,No Lymphadenopathy Endocrine : No Polyuria, No Polydipsia, No Temperature Intolerance [facility] Past Medical History Medical History Asthma Decreased movement affecting management of mother, antepartum Herpes IUGR (intrauterine growth restriction) affecting care of mother Surgical History Hx of wisdom tooth extraction Family History Family History Father Lyme disease Stroke Depression Mother Depression Anxiety History of bipolar disorder Maternal Grandmother Fibromyalgia Depression Anxiety HTN (hypertension) Diabetes mellitus Paternal Grandmother Diabetes mellitus CVD (cardiovascular disease) Paternal Grandfather Diabetes mellitus Social History Social History Household Members: Family and Children Alcohol intake: never Patient Tobacco Use Status: Current everyday Tobacco user Use of substances other than those prescribed or required for medical reasons: Yes Substance Use Type: Marijuana Substance Use Frequency: Daily Advance Directives: No Advance Directives Information Provided: No Patient : No Gender identity: Female Physical Exam Vital Signs: Vital Signs: Last Vital Signs Temp 99.1 F 08/24/21 20:48 Pulse 118 H 08/24/21 21:16 Resp 20 08/24/21 20:48 BP 109/57 L 08/24/21 20:48 Pulse Ox 92 08/24/21 20:51 Body Mass Index 25.9 Const: Other: Appearance: Alert. Oriented X3. No acute distress. Well- appearing Eyes: Pupils equal, round and reactive to light. ENT: Pharynx normal. Neck: Normal inspection. Neck supple. No lymph nodes noted. No crepitus CVS: Normal heart rate and rhythm. Pulses normal. Normal S1 and S2 Respiratory: No respiratory distress. Burning comfortably, bilateral diffuse wheezing, good air movement. Abdomen: Soft and nontender. No rigidity. No distention. Skin: Skin warm and dry. Normal skin color. Normal skin turgor. * Extremities: No lower extremity edema. No Lacerations. No Rash Neuro: Oriented X 3. No motor deficit. No sensory deficit. Moving all extermities. No slurred speech. Course Course Course Narrative: Patient saturating 96% on room air, patient was able to walk around the Emergency Room maintaining her oxygen saturation is between 95 and 96%. Patient no longer wheezing. Breathing comfortably, speaking in full sentences. MDM - SOB/Dyspnea Lab Data Labs: Lab Results 08/24/21 Range/Units 20:47 Influenza Type A (PCR) NEGATIVE (Negative) Influenza Type B (PCR) NEGATIVE (Negative) RSV RNA Qual (PCR) NEGATIVE (Negative) SARS-CoV-2 RNA (RT-PCR) NEGATIVE (Negative) Imaging Data Chest x-ray: Radiologist's impression: Lungs are clear. No consolidation, pneumothorax, or pleural effusion. Cardiac and mediastinal contours are normal. Pulmonary vasculature is unremarkable. Trachea is midline. Osseous structures are unremarkable. XR/XR chest 2V IMPRESSION: Normal chest radiographs.? Discharge Plan Discharge Clinical Impression: Asthma exacerbation Patient Disposition: Home, Self-Care Instructions: Asthma (ED) Additional Instructions: Please follow-up with your primary care physician tomorrow. If you have any worsening or new symptoms, please return to the emergency room or call 911 Prescriptions: New albuterol sulfate 90 mcg/actuation HFA aerosol inhaler 2 puff inhalation Q4-6H PRN (Reason: shortness of breath or wheezing) Qty: 8.5 RF: 1 prednisone 50 mg tablet 50 mg PO DAILY Qty: 5 RF: 0 albuterol sulfate 2.5 mg/0.5 mL solution for nebulization 5 mg inhalation Q4H PRN (Reason: shortness of breath or wheezing) Qty: 30 RF: 0 No Action albuterol sulfate [ProAir HFA] 90 mcg/actuation HFA aerosol inhaler 2 puff inhalation Q6H PRNRF: 0 valacyclovir 1 gram tablet 1,000 mg PO DAILY Qty: 30 RF: 1
[2021-08-24] MEDS: methylPREDNISolone Sod Succ 125 MG/2 ML VIAL IVPUSH (20:42)
[2021-08-24] MEDS: Magnesium Sulfate/H2O 2 GM/50 ML PIGGYBACK IV (20:42)
[2021-08-24 20:48] VITALS: BP 109/57; PULSE 125; RESP 20; TEMP 37.3; O2SAT 89
[2021-08-24 20:51] VITALS: O2SAT 92
--- NOTE | 2021-08-24 20:52 | PC.NURSE ---
patient a&ox3, mix mill tender sinus tach, pts o2 sat was 89% on room air, applied 2l O2 pts o2 sat went up to 92%, pt medicated per order, covid swab obtained, will continue to monitor.
[2021-08-24 21:16] VITALS: PULSE 118; O2SAT 94
[2021-08-24] MEDS: Albuterol Sulfate (0.083%) 2.5 MG/3 ML VIAL.NEB 10 MG INHALE (21:16)
[2021-08-24 21:34] LABS: Influenza A PCR NEGATIVE (Negative); Influenza B PCR NEGATIVE (Negative); Resp Syncy Virus RNA Qual PCR NEGATIVE (Negative); SARS COV2 PCR INHOUSE NEGATIVE (Negative)
--- NOTE | 2021-08-24 23:34 | PC.NURSE ---
Pt ambulated around the complete ed on room air, steady gait, hr 144 sat maintained at 95-96% with pt talking the whole way. no sob noted, on return back to bed pt sat sitting 95% hr back to baseline before ambulation of 130. Skin pink warm and dry not s/s of distress and pt states she feels ready for discharge.
[2021-08-24 23:36] VITALS: PULSE 144; RESP 18; O2SAT 95
== END 2021-08-24 23:54 | disposition home or self-care (01) ==
PROVIDERS: Emergency Provider Emergency Medicine
DX: J45.901 Unspecified asthma with (acute) exacerbation (principal); R06.00 Dyspnea, unspecified; F17.200 Nicotine dependence, unspecified, uncomplicated; Z20.822 Contact with and (suspected) exposure to COVID-19; F12.90 Cannabis use, unspecified, uncomplicated; Z79.899 Other long term (current) drug therapy
CPT/HCPCS: 0241U; 36415; 71046; 94640; 96365; 96366; 96375; 99284; J2930; J3475

== ENCOUNTER 2021-12-15 11:10 | Emergency (ER) | payer OTHER, SELFPAY ==
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
[2021-12-15 11:13] VITALS: BP 128/66; PULSE 100; RESP 19; TEMP 36.6; O2SAT 99; BMI 25.6
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
[2021-12-15 11:59] LABS: UPreg QC Valid YES; Urine Pregnancy NEGATIVE (NEGATIVE)
== END 2021-12-15 13:41 | disposition home or self-care (01) ==
PROVIDERS: Physician Assistant; Emergency Provider Emergency Medicine
DX: S06.0X0A Concussion without loss of consciousness, initial encounter (principal); R07.81 Pleurodynia; G44.309 Post-traumatic headache, unspecified, not intractable; V43.62XA Car passenger injured in collision with other type car in traffic accident, initial encounter; Y93.9 Activity, unspecified; Y92.410 Unspecified street and highway as the place of occurrence of the external cause; Y99.9 Unspecified external cause status; Z79.899 Other long term (current) drug therapy
CPT/HCPCS: 70450; 71101; 81025; 99284

== ENCOUNTER → 2022-04-01 13:00 | Outpatient (BNVA) | payer OTHER, SELFPAY | PROVIDERS: Visit Provider Advanced Practice Midwife | DX: N92.6 Irregular menstruation, unspecified (principal); Z32.01 Encounter for pregnancy test, result positive; O26.899 Other specified pregnancy related conditions, unspecified trimester | CPT/HCPCS: 99212 ==

== ENCOUNTER 2022-04-08 10:19 | Outpatient (REF) | payer OTHER, SELFPAY ==
--- NOTE | ~2022-04-08 | US_ITS ---
EXAMINATION: US OBSTETRICAL ULTRASOUND CLINICAL INFORMATION: Irregular menstruation. Check size and dates. COMPARISON: None. LMP: 02/15/2022. Gestational age by maternal dates is 7 weeks 3 days. Estimated date of delivery by maternal dates is 11/22/2022. TECHNIQUE: Transabdominal and transvaginal first trimester OB ultrasound FINDINGS: There is a single intrauterine gestational sac with visible yolk sac, embryo/fetus, and cardiac activity. There is no significant subchorionic hemorrhage or hematoma. HR: 120 beats per minute. CRL (crown rump length): 0.6 cm (6 weeks 3 days +/- 4 days). ERIKA (estimated date of delivery): 11/29/2022 +/- 4 days. MATERNAL ADNEXA: The right maternal ovary measures 1.9 x 1 x 0.9 cm. The left maternal ovary measures 4.1 x 2.9 x 2.5 cm. There is a 1.4 x 0.8 x 1.1 cm cyst. There is no significant maternal adnexal mass. No maternal pelvic ascites. US/US OB pelvic and transvaginal IMPRESSION: 1. Single intrauterine gestation with ultrasound gestational age of 6 weeks 3 days +/- 4 days. 2. Estimated date of delivery is 11/29/2022 +/- 4 days. 3. No maternal adnexal mass or pelvic ascites.
== END 2022-04-08 10:20 | disposition home or self-care (01) ==
LOC: HO.US 10:19
PROVIDERS: Visit Provider Advanced Practice Midwife
DX: Z34.91 Encounter for supervision of normal pregnancy, unspecified, first trimester (principal); Z3A.01 Less than 8 weeks gestation of pregnancy
CPT/HCPCS: 76801; 76817

== ENCOUNTER → 2022-04-26 09:56 | Outpatient (BNVA) | payer OTHER, SELFPAY | PROVIDERS: Visit Provider Advanced Practice Midwife | DX: O09.291 Supervision of pregnancy with other poor reproductive or obstetric history, first trimester (principal); O99.321 Drug use complicating pregnancy, first trimester; F12.90 Cannabis use, unspecified, uncomplicated; O98.511 Other viral diseases complicating pregnancy, first trimester; B00.9 Herpesviral infection, unspecified; Z3A.09 9 weeks gestation of pregnancy | CPT/HCPCS: 99212 ==

== ENCOUNTER 2022-05-25 09:37 | Outpatient (REF) | payer OTHER, SELFPAY ==
[2022-05-25 18:24] LABS: CT PCR NOT DETECTED (Not Detect.); NG PCR NOT DETECTED (Not Detect.)
[2022-05-26 09:38] LABS: BV Int Neg Control Negative (Negative); BV Int Pos Control Positive (Positive)
== END 2022-05-25 09:38 | disposition home or self-care (01) ==
LOC: HO.LAB 09:37
PROVIDERS: Visit Provider Advanced Practice Midwife
DX: Z34.91 Encounter for supervision of normal pregnancy, unspecified, first trimester (principal); Z20.2 Contact with and (suspected) exposure to infections with a predominantly sexual mode of transmission; Z3A.13 13 weeks gestation of pregnancy
CPT/HCPCS: 81003; 87480; 87491; 87510; 87591; 87660; 88142; 99212

== ENCOUNTER 2022-05-27 10:34 | Outpatient (REF) | payer OTHER, SELFPAY ==
[2022-05-27 12:44] LABS: Hematocrit 39.3 % (37.0-47.0); Hemoglobin 13.3 g/dl (12.0-16.0); Mean Corpuscular HGB Conc 33.8 g/dl (31.0-35.0); Mean Corpuscular Hemoglobin 28.2 pg (27.0-33.0); Mean Corpuscular Volume 83.4 fL (80.0-98.0); Mean Platelet Volume 10.1 fL (9.4-12.3); Platelet Count 278 X10*3/uL (160-400); Red Blood Count 4.71 X10*6/uL (4.20-5.50); Red Cell Distribution Width 13.3 % (11.0-16.0); White Blood Count 10.9 X10*3/uL (4.8-10.8)
[2022-05-27 13:01] LABS: Glucose 1 Hour PP 50gm Dose 110 mg/dL (60-140)
[2022-05-27 13:16] LABS: Amphetamine Screen Urine Not Detected (Not Detect); Barbiturates, Urine Not Detected (Not Detect); Benzodiazepines Screen Urine Not Detected (Not Detect); Cannabinoid Screen Urine POSITIVE (Not Detect); Cocaine Screen Urine Not Detected (Not Detect); Fentanyl, urine Not Detected (Not Detect); Opiate Screen Urine Not Detected (Not Detect); Phencyclidine Screen Urine Not Detected (Not Detect)
[2022-05-27 13:22] LABS: Syphilis Screen Nonreactive (Nonreactive)
[2022-05-30 07:56] LABS: HIV AB/AG Nonreactive (Nonreactive); HIV Num 1 0.07 S/CO (0.00-0.99); Hepatitis B Surface Antigen Negative (Negative); ~HepC Num1 0.14 S/CO (0.00-0.79); ~Hepatitis C Antibody Nonreactive (Nonreactive)
[2022-05-30 14:12] LABS: Rubella IgG Antibody 1.45 Index
== END 2022-05-27 10:35 | disposition home or self-care (01) ==
LOC: HO.LAB 10:34
PROVIDERS: Visit Provider Advanced Practice Midwife
DX: Z34.90 Encounter for supervision of normal pregnancy, unspecified, unspecified trimester (principal)
CPT/HCPCS: 80307; 85027; 86762; 86780; 86787; 86803; 86850; 86900; 87086; 87088; 87186; 87340; 87389

== ENCOUNTER 2022-06-07 12:12 | Emergency (ER) | payer OTHER, SELFPAY ==
[2022-06-07 12:44] VITALS: BP 97/61; PULSE 90; RESP 18; TEMP 36.9; O2SAT 97; BMI 26.2
[2022-06-07 12:54] LABS: MANUAL DIFF FLAG NO
[2022-06-07 12:56] LABS: Basophils Absolute Auto 0.1 X10*3/uL (0.0-0.2); Basophils Percent Auto 0.4 % (0-2); Eosinophils Absolute Auto 0.5 X10*3/uL (0.0-0.4); Eosinophils Percent Auto 4.6 % (0-4); Hematocrit 37.9 % (37.0-47.0); Hemoglobin 12.9 g/dl (12.0-16.0); Imm Gran Abs Auto 0.03 X10*3/uL (0.00-0.03); Imm Gran Pct Auto 0.3 % (0.0-0.4); Lymphocytes Absolute Auto 2.5 X10*3/uL (1.2-4.9); Lymphocytes Percent Auto 22.3 % (20-40); Mean Corpuscular Hemoglobin 28.2 pg (27.0-33.0); Mean Corpuscular Volume 82.8 fL (80.0-98.0); Mean Platelet Volume 9.6 fL (9.4-12.3); Monocytes Absolute Auto 0.5 X10*3/uL (0.1-1.2); Monocytes Percent Auto 4.5 % (2-11); Neutrophils Absolute Auto 7.6 x10*3/uL (2.0-8.3); Neutrophils Percent Auto 67.9 % (45-73); Platelet Count 257 X10*3/uL (160-400); Red Blood Count 4.58 X10*6/uL (4.20-5.50); Red Cell Distribution Width 13.4 % (11.0-16.0); White Blood Count 11.2 X10*3/uL (4.8-10.8)
[2022-06-07 13:01] LABS: Appearance Urine Clear; Color Urine Yellow; Glucose Urine UA Negative (Negative); Leukocyte Esterase Urine Trace (Negative); Nitrite Urine Negative (Negative); PH 8.5 (5.0-9.0); Specific Gravity - Urine 1.015 (1.005-1.025); Urine Blood Negative (Negative); Urine Ketones Negative (Negative); Urine Protein Negative (Neg-Trace)
[2022-06-07 13:06] LABS: Bacteria Urine None Seen (None Seen); Hyaline Casts Urine 0-2 /LPF (0-2); RBC Urine 0-2 /HPF (0-2); WBC Urine 0-5 /HPF (0-5)
[2022-06-07 13:11] LABS: Anion Gap 14 (12-20); Blood Urea Nitrogen 6 mg/dL (9-16); Calcium 8.6 mg/dL (8.4-10.2); Carbon Dioxide 21 mmol/L (22-29); Chloride 106 mmol/L (96-108); Creatinine Clr Calc Pharmacy 126.8; Estimated Glomerular Filt Rate > 60; Glucose Random 89 mg/dL (60-115); Potassium 3.9 mmol/L (3.3-5.1); Sodium 137 mmol/L (135-145)
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
[2022-06-07] MEDS: Acetaminophen 325 MG TABLET 650 MG PO (13:53)
[2022-06-07] MEDS: Lactated Ringers 1,000 ML 999 ML IV (14:03)
[2022-06-07 14:05] VITALS: BP 111/67; PULSE 82; RESP 14; TEMP 37; O2SAT 98
== END 2022-06-07 15:06 | disposition home or self-care (01) ==
PROVIDERS: Emergency Provider Emergency Medicine
DX: R10.2 Pelvic and perineal pain (principal); E86.0 Dehydration; F12.90 Cannabis use, unspecified, uncomplicated; Z87.891 Personal history of nicotine dependence
CPT/HCPCS: 36415; 80048; 81001; 81003; 85025; 99283; 99285

== ENCOUNTER → 2022-06-22 08:01 | Outpatient (BNVA) | payer OTHER, SELFPAY | PROVIDERS: Visit Provider Advanced Practice Midwife | DX: Z34.82 Encounter for supervision of other normal pregnancy, second trimester (principal); Z3A.17 17 weeks gestation of pregnancy | CPT/HCPCS: 81003; 99212 ==

== ENCOUNTER → 2022-07-22 11:50 | Outpatient (BNVA) | payer OTHER, SELFPAY | PROVIDERS: Visit Provider Advanced Practice Midwife | DX: Z34.92 Encounter for supervision of normal pregnancy, unspecified, second trimester (principal); Z3A.21 21 weeks gestation of pregnancy; Z87.09 Personal history of other diseases of the respiratory system; Z86.19 Personal history of other infectious and parasitic diseases | CPT/HCPCS: 81003; 99212 ==

== ENCOUNTER 2022-08-19 12:15 | Outpatient (REF) | payer OTHER, SELFPAY | END 2022-08-19 12:16 | disposition home or self-care (01) | LOC: HO.LNP 12:15 | PROVIDERS: Visit Provider Advanced Practice Midwife | DX: O23.42 Unspecified infection of urinary tract in pregnancy, second trimester (principal); N39.0 Urinary tract infection, site not specified; B96.20 Unspecified Escherichia coli [E. coli] as the cause of diseases classified elsewhere; O99.512 Diseases of the respiratory system complicating pregnancy, second trimester; J45.909 Unspecified asthma, uncomplicated; O99.830 Other infection carrier state complicating pregnancy; B00.9 Herpesviral infection, unspecified; O99.322 Drug use complicating pregnancy, second trimester; F12.20 Cannabis dependence, uncomplicated; Z3A.25 25 weeks gestation of pregnancy; Z79.899 Other long term (current) drug therapy | CPT/HCPCS: 87086; 87088; 87186; 99212 ==

== ENCOUNTER → 2022-10-11 12:58 | Outpatient (BNVA) | payer OTHER, SELFPAY | PROVIDERS: Visit Provider Advanced Practice Midwife | DX: Z23 Encounter for immunization (principal); O09.293 Supervision of pregnancy with other poor reproductive or obstetric history, third trimester; Z3A.33 33 weeks gestation of pregnancy | CPT/HCPCS: 90471; 90715; 99212 ==

== ENCOUNTER → 2022-10-26 08:52 | Outpatient (BNVA) | payer OTHER, SELFPAY | PROVIDERS: Visit Provider Advanced Practice Midwife | DX: O24.419 Gestational diabetes mellitus in pregnancy, unspecified control (principal); O99.513 Diseases of the respiratory system complicating pregnancy, third trimester; J45.909 Unspecified asthma, uncomplicated; O98.513 Other viral diseases complicating pregnancy, third trimester; B00.9 Herpesviral infection, unspecified; O99.323 Drug use complicating pregnancy, third trimester; F12.90 Cannabis use, unspecified, uncomplicated; Z3A.35 35 weeks gestation of pregnancy | CPT/HCPCS: 81003; 99212 ==

== ENCOUNTER → 2022-11-02 11:17 | Outpatient (BNVA) | payer OTHER, SELFPAY | PROVIDERS: Visit Provider Advanced Practice Midwife | DX: Z34.83 Encounter for supervision of other normal pregnancy, third trimester (principal); Z3A.36 36 weeks gestation of pregnancy | CPT/HCPCS: 81003; 99212 ==

== ENCOUNTER → 2022-11-09 13:54 | Outpatient (BNVA) | payer OTHER, SELFPAY | PROVIDERS: Visit Provider Advanced Practice Midwife | DX: Z34.83 Encounter for supervision of other normal pregnancy, third trimester (principal); Z3A.37 37 weeks gestation of pregnancy | CPT/HCPCS: 81003; 99212 ==

== ENCOUNTER → 2022-11-17 13:43 | Outpatient (BNVA) | payer OTHER, SELFPAY | PROVIDERS: Visit Provider Obstetrics & Gynecology | DX: O99.513 Diseases of the respiratory system complicating pregnancy, third trimester (principal); J45.909 Unspecified asthma, uncomplicated; O23.43 Unspecified infection of urinary tract in pregnancy, third trimester; N39.0 Urinary tract infection, site not specified; B96.20 Unspecified Escherichia coli [E. coli] as the cause of diseases classified elsewhere; O98.513 Other viral diseases complicating pregnancy, third trimester; B00.9 Herpesviral infection, unspecified; O99.820 Streptococcus B carrier state complicating pregnancy; O09.893 Supervision of other high risk pregnancies, third trimester; O99.323 Drug use complicating pregnancy, third trimester; F12.20 Cannabis dependence, uncomplicated; Z3A.38 38 weeks gestation of pregnancy; Z79.899 Other long term (current) drug therapy | CPT/HCPCS: 99212 ==

== ENCOUNTER → 2023-01-05 15:06 | Outpatient (BNVA) | payer OTHER, SELFPAY | PROVIDERS: Visit Provider Advanced Practice Midwife | DX: Z39.2 Encounter for routine postpartum follow-up (principal); Z79.3 Long term (current) use of hormonal contraceptives | CPT/HCPCS: 99212 ==

== ENCOUNTER → 2023-02-10 12:56 | Outpatient (BNVA) | payer OTHER, SELFPAY | PROVIDERS: Visit Provider Advanced Practice Midwife | DX: Z30.42 Encounter for surveillance of injectable contraceptive (principal) | CPT/HCPCS: 99211 ==

== ENCOUNTER 2023-08-29 00:35 | Emergency (ER) | payer OTHER, SELFPAY ==
--- NOTE | ~2023-08-29 | XR_ITS ---
EXAMINATION: XR CHEST CLINICAL INFORMATION: Cough COMPARISON: 12/15/2021 TECHNIQUE: Frontal view of the chest was obtained. FINDINGS: Lung volumes are symmetric. There is subtle streaky opacity at the left lung base which could reflect mild atelectasis versus subtle developing consolidation. No evidence of pneumothorax, pleural effusion, or pulmonary edema. The cardiomediastinal contour is unremarkable. No acute osseous findings are seen. XR/XR chest 1V IMPRESSION: Subtle streaky left basilar opacity which could reflect mild atelectasis versus mild developing consolidation in the proper clinical setting.
--- NOTE | ~2023-08-29 | CT_ITS ---
EXAMINATION: CT ABDOMEN AND PELVIS WITH CONTRAST CLINICAL INFORMATION: Abdominal pain COMPARISON: None available. TECHNIQUE: Multidetector volumetric images were obtained from the superior aspect of the liver through the pubic symphysis following administration 85 mL of Omnipaque 350 intravenous contrast. Sagittal and coronal reformatted images were obtained on the technologist's workstation. Oral contrast: No This CT examination was performed using dose optimization techniques as appropriate, variously including the following: *Automated exposure control *Adjustment of mA and/or kV according to patient size (this includes techniques or standardized protocols for targeted exams where dose is matched to indication/reason for exam; i.e. extremities or head) *Use of iterative reconstruction technique DLP: 502 mGy-cm FINDINGS: LUNG BASES: There is patchy consolidation in the right lower lobe and mild patchy groundglass opacities at the bilateral lung bases. LIVER, GALLBLADDER, AND BILIARY TREE: The liver is normal in size, shape, and attenuation. No focal hepatic lesion or biliary ductal dilatation is present. The gallbladder is unremarkable with no evidence of radiopaque gallstones, gallbladder wall thickening, or obvious pericholecystic inflammatory changes. PANCREAS: Unremarkable. SPLEEN: Borderline enlarged. ADRENAL GLANDS: Unremarkable. KIDNEYS AND URETERS: Bilateral nephrograms are symmetric. No hydronephrosis or obstructing calculus identified. BLADDER: Unremarkable. GASTROINTESTINAL TRACT: No evidence of bowel obstruction or significant wall thickening. Appendix appears nondilated. No free air is seen. ABDOMINAL WALL: No significant hernia is appreciated. LYMPH NODES: Normal. VASCULAR: Unremarkable. PELVIC VISCERA: Unremarkable. Trace pelvic free fluid. OSSEOUS STRUCTURES: Unremarkable. CT/CT abdomen pelvis w IV con IMPRESSION: 1. Trace nonspecific pelvic free fluid, which may be physiologic. Otherwise no acute findings identified in the abdomen/pelvis. 2. Patchy consolidation in the right lower lobe and mild patchy groundglass opacities at the bilateral lung bases, suspicious for pneumonia.
[2023-08-29 00:38] VITALS: BP 130/70; PULSE 119; RESP 20; TEMP 36.6; O2SAT 95; BMI 28.3
[2023-08-29 00:59] VITALS: BP 117/70; PULSE 109; RESP 16; TEMP 37.9; O2SAT 100
[2023-08-29 00:59] LABS: Basophils Absolute Auto 0.1 X10*3/uL (0.0-0.2); Basophils Percent Auto 0.3 % (0-2); Eosinophils Percent Auto 0.2 % (0-4); Imm Gran Pct Auto 0.6 % (0.0-0.4); Lymphocytes Absolute Auto 1.5 X10*3/uL (1.2-4.9); Lymphocytes Percent Auto 8.4 % (20-40); MANUAL DIFF FLAG NO; Mean Corpuscular Hemoglobin 28.8 pg (27.0-33.0); Mean Corpuscular Volume 82.3 fL (80.0-98.0); Mean Platelet Volume 9.6 fL (9.4-12.3); Monocytes Absolute Auto 1.1 X10*3/uL (0.1-1.2); Monocytes Percent Auto 5.9 % (2-11); Neutrophils Absolute Auto 15.1 x10*3/uL (2.0-8.3); Neutrophils Percent Auto 84.6 % (45-73); Platelet Count 252 X10*3/uL (160-400); Red Blood Count 4.86 X10*6/uL (4.20-5.50); Red Cell Distribution Width 12.9 % (11.0-16.0); White Blood Count 17.8 X10*3/uL (4.8-10.8)
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
--- NOTE | 2023-08-29 01:07 | PC.NURSE ---
pt from home, a&ox3, respirations even and unlabored. pt reports abdominal pain, nausea and vomiting since this morning. pt reports 7 episodes of vomiting. pt states she is unable to keep anything down by mouth including solids and liquids. pt denies chest pain at this time. pt sinus tachy on monitor 111. iv established and labs obtained at this time.
--- OUTSIDE RECORDS SUMMARY | 2023-08-29 01:15 | XMS_ITS | Continuity of Care Document ---
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 Phone Falguni Uriostegui DO Primary Care Physician Encounter [facility] Date(s): 06/19/23 - 07/19/[address] [address] Attending Physician: Keyon Mitchell Admitting Physician: AdmtrKeyon Referring Physician: Admtr, Ar8 Allergies, Adverse Reactions, Alerts Substance Reaction Severity Status Seeds 1, 2 Angioedema-urticaria Active 1Sesame seeds 2SUNFLOWER SEEDS Immunizations Given and Recorded Vaccine Date Status Refusal Reason tetanus/diphtheria/pertussis, acel(Tdap) 10/11/22 Recorded tetanus/diphtheria/pertussis, acel(Tdap) 08/08/13 Given SARS-CoV-2 (COVID-19) mRNA BNT-162b2 vac 07/28/21 Recorded Hepatitis A Pediatric Vaccine 1 01/15/19 Given Meningococcal Conjugate Vaccine 11/14/17 Given influenza virus vaccine, inactivated 06/18/15 Give n influenza virus vaccine, inactivated 08/08/13 Give n influenza virus vaccine, inactivated 2 07/20/12 Gi nayeli influenza virus vaccine, inactivated 3 07/08/11 Gi nayeli Meningococcal Polysaccharide Vaccine 4 03/27/14 Gi nayeli Human Papillomavirus Vaccine 5 03/27/14 Given Human Papillomavirus Vaccine 08/08/13 Given Human Papillomavirus Vaccine 6 07/20/12 Given Varicella Virus Vaccine 7 11/23/11 Given Varicella Virus Vaccine 05/08/02 Given Influenza Inactive (IM) (oldterm) 8 09/23/08 Given Influenza Virus Vaccine (oldterm) 08/07/08 Given Measles/Mumps/Rubella Virus Vaccine 05/11/06 Given Measles/Mumps/Rubella Virus Vaccine 09/09/02 Given Poliovirus Vaccine, Inactivated 05/11/06 Given Poliovirus Vaccine, Inactivated 01 Given Poliovirus Vaccine, Inactivated 01 Given Poliovirus Vaccine, Inactivated 01 Given Diphth/Pertussis,Acel/Tetanus (oldterm) 05/11/06 G iven Diphth/Pertussis,Acel/Tetanus (oldterm) 09/09/02 G iven Diphth/Pertussis,Acel/Tetanus (oldterm) 01 G iven Diphth/Pertussis,Acel/Tetanus (oldterm) 01 G iven Diphth/Pertussis,Acel/Tetanus (oldterm) 01 G iven Haemophilus B Conj Vaccine (oldterm) 09/09/02 Give n Haemophilus B Conj Vaccine (oldterm) 01 Give n Haemophilus B Conj Vaccine (oldterm) 01 Give n Haemophilus B Conj Vaccine (oldterm) 01 Give n Hepatitis B Vaccine (old term) 01/02/02 Given Hepatitis B Vaccine (old term) 01 Given Hepatitis B Vaccine (old term) 01 Given Pneumococcal Conjugate (PCV7) (oldterm) 01 G iven Pneumococcal Conjugate (PCV7) (oldterm) 01 G iven Pneumococcal Conjugate (PCV7) (oldterm) 01 G iven 1Result Comment: [id number] 2Admin Note: VIS DATED 04/09/2013 GIVEN. 3Admin Note: vis given 05.03.2011 4Admin Note: vis 11/05/07 5Admin Note: vis dated 01/05/2010 given 6Admin Note: GARDASIL #1, VIS DATED 11/30/2011 GIVEN 7Admin Note: VIS dated 12/20/2007 given 8Admin Note: VIS DATED 05/01/08 GIVEN fluvirin by [employer] Medications albuterol CFC free 90 mcg/inh inhalation aerosol 4-6 puffs, Inhalation, Every 4 hours, PRN, use with spacer chamber, # 8 Gm, Refills 3, Tot. Refills3, Maintenance, 11/25/22 12:11:00 EST, Aerosol, Route to Pharmacy Electronically, [id number], [facility]/pharmacy #[id number], 157.48, cm,... Start Date: 11/25/22 Stop Date: 07/23/23 Status: Ordered Bilateral Wrist Splint Bilateral Wrist Splint, See Instructions, # 2 each, Refills 0, Tot. Refills 0, Maintenance, ICD 10:G56.0 Wear wrist splints bilaterally, throughout the day and can take of at night and during showers., 06/02/23 9:38:00 EDT, Supply Start Date: 06/02/23 Status: Ordered fluticasone-salmeterol 500 mcg-50 mcg inhalation powder 1, puffs, Inhalation, Every 12 hours, rinse mouth and throat after use, # 60 each, Refills 5, Tot. Refills 5, Maintenance, 07/27/22 13:42:00 EDT, Powder, Route to Pharmacy Electronically, [id number], [facility]/pharmacy #[id number], 157,... Start Date: 07/27/22 Status: Ordered naproxen 500 mg oral delayed release tablet 1 tablet = 500 mg, By Mouth, 2 times a day, # 28 tablet, 0 Refills, Maintenance, 06/02/23 9:30:00 EDT, EC Tablet, [facility]/pharmacy #[id number], Partial fill upon patient request if the prescription is for a schedule II opioid drug., 158, cm, 06/02/23 8:23:00 ED... 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
--- OUTSIDE RECORDS SUMMARY | 2023-08-29 01:15 | XMS_ITS | Continuity of Care Document ---
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 3Admin [...] 12:11:00 EST, Aerosol, Route to Pharmacy Electronically, [id number], [facility]/pharmacy #[id number], 157.48, cm,... Start Date: 11/25/22 Stop [...] 13:42:00 EDT, Powder, Route to Pharmacy Electronically, [id number], [facility]/pharmacy #[id number], 157,... Start Date: 07/27/22 Status: Ordered naproxen 500 mg oral delayed release tablet 1 tablet = 500 mg, By Mouth, 2 times a day, # 28 tablet, 0 Refills, Maintenance, 06/02/23 9:30:00 EDT, EC Tablet, [facility]/pharmacy #[id number], Partial fill upon patient request if the prescription is for a schedule II opioid drug., 158, cm, 06/02/23 8:23:00 ED... 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
--- OUTSIDE RECORDS SUMMARY | 2023-08-29 01:15 | XMS_ITS | Continuity of Care Document ---
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 3Admin [...] 12:11:00 EST, Aerosol, Route to Pharmacy Electronically, [id number], [facility]/pharmacy #[id number], 157.48, [...] 13:42:00 EDT, Powder, Route to Pharmacy Electronically, [id number], [facility]/pharmacy #[id number], 157,... [...] Electronically, [facility] STORE [id number], 157.48, cm, 11/25/22 9:46:00 EST, Height, 81.3, [...] Team Personnel Name: Falguni Uriostegui DO Position: [facility] Resident Member Role: PCP Address: Address: [address] [place] [address]- Care Team Related Persons Name: Zakia MELENDREZ Address: [address] Address: [address] [place] [address] [place] Name: OVIDIO BORRERO Address: [address] [place] [address] [place] Name: OVIDIO BORRERO Address: [address] [place] [address]
--- OUTSIDE RECORDS SUMMARY | 2023-08-29 01:15 | XMS_ITS | Continuity of Care Document ---
Author Name Unknown Organization [facility] ter Address [address] [place] [address]- Care Team Providers Care Field Servicer Name Role Phone Falguni Uriostegui DO Primary Care Physician Encounter [facility] Date(s): 05/11/23 - 05/11/[address] [address]- Discharge Disposition: A-D/C Home Attending Physician: Lara Hawkins MD Admitting Physician: Lara Hawkins MD Referring Physician: Lara Hawkins MD Allergies, Adverse Reactions, Alerts Substance Reaction [...] (PCV7) (oldterm) 01 G iven 1Result Comment: [id number] 2Admin Note: VIS DATED 04/09/2013 GIVEN. 3Admin [...] 12:11:00 EST, Aerosol, Route to Pharmacy Electronically, [id number], [facility]/pharmacy #0373, 157.48, cm,... Start Date: 11/25/22 Stop Date: 07/23/23 Status: Ordered EpiPen 2-Eramso 0.3 mg injectable kit See Instructions, Intramuscular Once in event of severe allergic reaction May repeat in 20minutes, # 1 each, 1 Refills, Maintenance, 07/29/20 16:36:00 EDT, [facility]/pharmacy #[id number], 158.2, cm, 07/29/20 16:21:00 EDT, Height, 63.2, kg, 07/29/20 16:21:00 EDT,... Start Date: 07/29/20 Status: Ordered fluticasone-salmeterol 500 mcg-50 mcg inhalation powder 1, puffs, Inhalation, Every 12 hours, rinse mouth and throat after use, # 60 each, Refills 5, Tot. Refills 5, Maintenance, 07/27/22 13:42:00 EDT, Powder, Route to Pharmacy Electronically, [id number], [facility]/pharmacy #0373, 157,... Start Date: 07/27/22 Status: Ordered ibuprofen 600 mg oral tablet 600 mg, 1, tablet, By Mouth, 4 times a day, # 40 tablet, Refills 0, Tot. Refills 0, Acute 05/18/23 10:22:00 EDT, 05/11/23 10:22:00 EDT, Route to Pharmacy Electronically, [facility]/pharmacy #[id number], Partial fill upon patient request if the prescription is for... Start Date: 05/11/23 Stop Date: 05/18/23 Status: Ordered oxyCODONE 5 mg oral tablet 5 mg, 1, tablet, By Mouth, Every 4 hours, PRN, # 7 tablet, Refills 0, Tot. Refills 0, Acute 05/16/23 10:21:00 EDT, for pain, 05/11/23 10:21:00 EDT, Route to Pharmacy Electronically, [facility]/pharmacy #[id number], Partial fill upon patient request if the prescrip... Start Date: 05/11/23 Stop Date: 05/16/23 Status: Ordered Tylenol 325 mg oral tablet 650 mg, 2, tablet, By Mouth, Every 4 hours, PRN, # 40 tablet, Refills 1, Tot. Refills 1, Acute 05/18/23 10:24:00 EDT, for pain, 05/11/23 10:23:00 EDT, Route to Pharmacy Electronically, [facility]/pharmacy #[id number], Partial fill upon patient request if the presc... Start Date: 05/11/23 Stop Date: 05/18/23 Status: Ordered valACYclovir 500 mg oral tablet 1, tablet, By Mouth, Every 12 hours, # 60 tablet, Refills 0, Maintenance, 12/23/22 8:56:00 EDT, Route to Pharmacy Electronically, [id number], 157.48, cm, 11/25/22 9:46:00 EST, Height, 81.3, [...] is in Spec Ed.? dyslexia 3Dec 2021 Vital Signs Most recent to oldest [Reference Range]: 1 2 3 Height 158 cm (05/11/23 8:03 AM) 158 cm (05/08/23 5:38 PM) Weight 70.2 kg (05/11/23 8:03 AM) 70.5 kg (05/08/23 5:38 PM) Oxygen Saturation [94-100 %] 99 % (05/11/23 11:45 AM) 100 % (05/11/23 11:30 AM) 100 % (05/11/23 11:15 AM) Pulse Rate [55-90 bpm] 85 bpm (05/11/23 8:03 AM) Body Mass Index [18.5-24.99 kg/m2] 28.12 kg/m2 *H* (05/11/23 8:03 AM) 28.24 kg/m2 *H* (05/08/23 5:38 PM) Blood Pressure [90-138/55-84 mm Hg] 106/64mm Hg (05/11/23 11:45 AM) 113/68mm Hg (05/11/23 11:30 AM) 100/52mm Hg (05/11/23 11:15 AM) Respiratory Rate [16-30 br/min] 15 br/min *L* (05/11/23 11:45 AM) 14 br/min *L* (05/11/23 11:30 AM) 13 br/min *L* (05/11/23 11:15 AM) Temperature [96.8-100.4 DegF] 97.2 DegF (05/11/23 11:30 AM) 97.9 DegF (05/11/23 10:30 AM) 97.8 DegF (05/11/23 8:03 AM) Liters per Minute 6 L/min (05/11/23 11:15 AM) 6 L/min (05/11/23 11:00 AM) 6 L/min (05/11/23 10:45 AM) Mode of Delivery (Oxygen) Room air (05/11/23 11:45 AM) Room air (05/11/23 11:30 AM) Simple face mask (05/11/23 11:15 AM) Blood pressure sites Arm, left (05/11/23 11:45 AM) Arm, left (05/11/23 11:30 AM) Arm, left (05/11/23 11:15 AM) Temperature Route Temporal (05/11/23 11:30 AM) Temporal (05/11/23 10:30 AM) Temporal (05/11/23 8:03 AM) Dry Weight 70.2 kg (05/11/23 8:03 AM) 70.5 kg (05/08/23 5:38 PM) Weight Obtained Via Standing scale (05/11/23 8:03 AM) Dry Weight Obtained Via Standing scale (05/11/23 8:03 AM) Patient/family stated (05/08/23 5:38 PM) Social History Social History Type Response Smoking Status Never smoker; Tobacc o user in household: No entered on: 02/05/18 Sex Note * Eneida Nivees RN: PERFORM Event Display: Discharge/Transfer Note Hospital Authored Date: [id number] Nursing Discharge Note Entered On: 05/11/2023 11:57 EDT Performed On: 05/11/2023 11:56 EDT by Eneida Nieves RN Nursing Discharge Note 2 Discharge Time : 05/11/2023 11:52 EDT Discharge Level of Care at Discharge : Home/[facility]/Foster Care Patient Left Unit Via : Wheelchair Patient Accompanied Off Unit with : Responsible adult DC Instructions Provided & Signed by Pt : Yes Patient Understands D/C Instructions : Yes Verbalized Understanding of D/C Plan By : Patient, Significant other Patient Instructions Discharge Signed : Yes Did Pt have Specialty Bed or Wound Vac : No Eneida Nieves RN - 05/11/2023 11:56 EDT * Eneida Nieves RN: PERFORM Event Display: Patient Education/Instruction Authored Date: [id number] Inpatient Adult Discharge Instructions [address] [address] Name: CHAPINCITO MUÑOZ : 2000 Visit: 05/11/2023 07:25:00 Current Date: 05/11/2023 11:26 Account: [id number] Inpatient Adult Discharge Instructions We would like to thank you for allowing us to assist you with your healthcare needs. The following includes patient education materials and information regarding your injury/illness. Our entire staffstrives to provide an excellent experience for our patients and their families. PLEASE ENSURE YOU FOLLOW-UP PER THE INSTRUCTIONS BELOW! ?? YOUR OPINION IS IMPORTANT TO US! Please complete the survey you may receive by mail or email. Your feedback will be used to make improvements to the healthcare experiences of our patients and their families. Surveys are administered by [employer] ?? If further treatment with your primary care physician or another doctor is recommended, it is important for you to keep the appointment. Call your primary care physician or return to the Emergency Department immediately if your condition worsens, fails to improve, or new symptoms develop. If you need to find a doctor, you can call [facility] Link for a referral at [phone] or toll free at [phone] ([phone] or log in to [email or web address].. ?? You can view and manage your care through the patient portal or by using a health care daniel of your choosing. [email or web address] is a website that allows you to securely view your medical information including your hospital discharge summary, office visit summaries, medications and follow-up visits. You can also request appointments, renew medications, and request access to your medical information using a health care daniel of your choosing, or just ask a question. You can enroll at [email or web address] or register during your next office visit. You have been discharged from [facility], Patient Care Unit: [facility]. If you have any questions regarding these instructions after you leave, please call us and we will be happy to assist you. [facility] Your Care Team Attending Physician Lara Hawkins MD Discharging Providers Lara Hawkins MD Reason for Admission DESIRED STERILIZATION CSDS Tests Performed Below is a partial list of the tests performed during your hospitalization. You may have had other tests and procedures not included in this list. Please discuss all test results with your provider. Primary Care Provider Falguni Uriostegui DO [facility] [employer] [facility] Care Proxy on File No Discharge Vitals Temperature: 97.9 DegF Height: 158 cm Pulse Rate: 85 bpm Weight: 70.2 kg Respiratory Rate:??13 br/min??Low Body Mass Index:??28.12 kg/m2??High Systolic Blood Pressure: 100 mm Hg Body surface area: 1.76 Diastolic Blood Pressure:??52 mm Hg??Low ?? Oxygen Saturation: 100 % ?? Studies Pending All tests and labs ordered during this hospital stay have been completed unless listed below. Please discuss all pending results with your provider listed above in these instructions. ?? No incomplete studies found What to do next Instructions From Your Doctor Please call your doctor if you note any of the following symptoms: - fever of 100.4 or greater - heavy vaginal bleeding - foul-smelling vaginal discharge - difficulty or burning with urination - nausea and vomiting with inability to tolerate food - pain not controlled by your prescribed medications - redness/swelling/drainage at incision(s) - shortness of breath or chest pain ?? In addition, please follow these steps to help your healing process: ?? - Do not drive while taking narcotics. Do not drive until cleared by your doctor. - Do not put anything in the vagina. No intercourse, tampons, or douching??for 8 weeks. - Walk as often as you are able. - Shower as usual after 24 hours. Remove Steri-Strips when they start to peel off, or after 5 days.Do not scrub the incision. Pat the skin dry. ?? Pain Control Instructions: Continue Tylenol and ibuprofen scheduled and only take opiates as prescribed??for breakthrough painin the first few days after you get home.??You may fill less than the prescribed amount, and you should store them in a safe location in a childproof prescription bottle.??Any unused opiates should be returned to a prescription drop-box, such as the one at the [facility]. No one other than you should take your opiates, and you should not use them for anything other than your postoperative pain. You should not drive while taking opiates. ?? Please call the office with pain that is not controlled with this regimen. Discharge Orders Instructions from your Care Team Please see attached MD discharge instructions. Ibuprofen last given at 10am. ?? Scheduled Follow-Up Appointments Monday 11:20 AM EDT ?? Where: [facility] - Merchandise Manager [address] [place] [address]- Status: Pending Monday 8:20 AM EDT ?? With: Falguni Uriostegui DO Where: [facility] [address] [place] [address]- Status: Pending You Need to Schedule the Following Appointments Follow Up with??Lara Hawkins Where: [address] [place] [address] [place] [address]- Business (1) Follow Up with??Falguni Uriostegui When:??In 0 days Discharge Medications CHAPINCITO MUÑOZ :2000 Visit Date:05/11/2023 Medications: Please continue your medications until treatment is completed or stopped by your provider. Medications not listed below should be discontinued. Discuss any questions related to medications with your provider. What How Much When Why Instructions Next Dose New Acetaminophen (Tylenol 325 mg oral tablet) 2 tab(s) Oral Every 4 hours as needed for for pain Refills: 1 Pickup at [facility]/pharmacy #0373 New Ibuprofen (ibuprofen 600 mg oral tablet) 1 tab(s) Oral 4 times a day Pickup at [facility]/pharmacy #0373 New Oxycodone (oxyCODONE 5 mg oral tablet) 1 tab(s) Oral Every 4 hours as needed for for pain Pickup at [facility]/pharmacy #0373 Unchanged Albuterol (albuterol CFC free 90 mcg/ inh inhalation aerosol) 4-6 puffs Inhalation Every 4 hours as needed for Wheezing/Shortness of Breath Duration: 60 Days use with spacer chamber ?? Unchanged EPINEPHrine (EpiPen 2-Erasmo 0.3 mg injectable kit) See instructions Intramuscular Once in event of severe allergic reaction May repeat ??in 20minutes ?? Unchanged Fluticasone-Salmeterol (fluticasone-salmeterol 500 mcg-50 mcg inhalation powder) 1 puff(s) Inhalation Every 12 hours Moderate persistent asthma rinse mouth and throat after use ?? Unchanged ValACYclovir (valACYclovir 500 mg oral tablet) 1 tab(s) Oral Every 12 hours Pharmacy Information [facility]/pharmacy #0373: [address] [place], [place] [id number] [phone] Test Results Below is a partial list of the most recent Laboratory test results done prior to this discharge. You may have had other tests and procedures not included in this list. Please discuss all test resultswith your provider. Allergies (NKA means No Known Allergies) Seeds??(Angioedema-urticaria) Problems Active Problems??(13) Asthma?? 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 COVID-19?? Eczema?? H/O suicide attempt?? History of influenza?? History of suicidal ideation?? Hx of gestational diabetes in prior , currently ?? Marijuana use?? Prior complicated by IUGR, antepartum?? Recurrent UTI (urinary tract infection) complicating ?? Severe persistent asthma?? Symphysis pubis disruption?? Education Materials Below is the list of Educational Leaflet Providered with your Discharge Instructions. Surgery Medical Daystay Surgical Overnight Discharge Instructions?NSAID Analgesic Schedule?? Valuables and Belongings I fully understand and agree that [facility] accepts no responsibility for all my personal property including clothing, toilet articles, radios, jewelry, dentures, hearing aids, rings, money, or any other property that is in my possession or is brought to me after admission. I understand certain valuables may be placed in a hospital safe for a short period of time. I understand that the hospital is not liable for loss or damage due to accident, fire, or other natural occurrence while said property is in the safe. I accept full responsibility for any personal property that I keep with me, and will not hold the hospital responsible in case of loss or disappearance. I acknowledge that i have been encouraged to send valuables and belongings home. ?? Review of Valuable and Belonging List: With patient, With family Date for Pt to Sign Valuables/Belongings: 05/11/23 08:03:00 ?? Valuables & Belongings ?? Clothes Electronic devices Jewelry Monetary Items Personal devices Miscellaneous Medications (Valuables) Valuables at Bedside Pants, Shirt, Shoes, Undergarments Cell phone, Other: collar band creaser ? Inhaler Valuables Sent Home ? Valuables Sent to Security ? Other Discharge Information ? Pulmonary Rehab Status?? Pulmonary Rehab Discharge Status?? Respiratory Rate:??13 br/min??Low ? Common Emergency Awareness Tips IS IT A STROKE? Act FAST and Check for these signs: FACE Does the face look uneven? ARM Does one arm drift down? SPEECH Does their speech sound strange? TIME Call at any sign of stroke ?? Heart Attack Signs Chest discomfort: Most heart attacks involve discomfort in the center of the chest and lasts more than a few minutes, or goes away and comes back. It can feel like uncomfortable pressure, squeezing, fullness or pain. Discomfort in upper body: Symptoms can include pain or discomfort in one or both arms, back, neck, jaw or stomach. Shortness of breath: With or without discomfort. Other signs: Breaking out in a cold sweat, nausea, or lightheaded. Remember, MINUTES DO MATTER. If you experience any of these heart attack warning signs, call to get immediate medical attention! ?? Smoking can increase your chances of developing chronic health problems and can cause harmful effects to other family members in your house. If you smoke, you are strongly encouraged to quit. Please call [facility] Link at [phone] or [phone] ([phone]) or log in to [email or web address] for referrals to smoking cessation programs. ?? 576 Suicide & Crisis Lifeline is available 01/05 if you or someone you know needs to find a reason to keep living. By calling 575 you'll be connected to a skilled, trained counselor at a crisis center in your area. INPATIENT DISCHARGE INSTRUCTIONS SIGNATURE PAGE MUÑOZCHAPINCITO Location:[facility] Registration Date and Time:05/11/2023 07:25 EDT Primary Care Physician: Falguni Uriostegui DO, Attending Physician: [place], Lara Del Valle, I CHAPINCITO MUÑOZ, have received the above patient education materials/instructions and have verbalized understanding. If ambulance or transport services are being used I further acknowledge being given a choice of service. ?? If you need to contact me, please call me at this number: . Patient/Milling Machine Operator Gear Name: Patient/Milling Machine Operator Gear Signature: Relationship to Patient: Witness Name/Signature: Date: * Eneida Nieves RN: PERFORM, SIGN, VERIFY Event Display: Patient Education Handout Authored Date: * Eneida Nieves RN: PERFORM Event Display: Patient Education Leaflets Authored Date: Surgery Medical Daystay Surgical Overnight Discharge Instructions ?? 295 Medical Daystay/Surgical Overnight Discharge Instructions ? Since your coordination and judgment may be altered by medication and/or anesthesia, a responsible adult must drive you home from the hospital. ? If you have received medication for pain or sedation while under our care, you should not drive, operate machinery, drink alcohol, or sign any legal documents for 24 hours.?? You should have someone with you at home tonight. ? Remain at home the day of discharge.?? You may be up and about unless otherwise instructed by your physician. ? You may resume your daily prescription medication schedule.?? Any depressant medication should be avoided for 24 hours unless otherwise instructed by your surgeon or anesthesiologist. ? Call your physician for a follow-up appointment.? If you experience unusual or severe pain not relied by your pain medication, excessive bleedingor drainage, persistent nausea and vomiting, excessive swelling or redness, foul odor from incisionsite or fever over 100.6F, you need to call your physician. ? A follow-up phone call by a nurse will be made the day after your procedure.?? If you have stayed with us over night, you will not be receiving a follow-up phone call. ? Nausea and vomiting are a common side effect of prescription pain medication.?? We recommend that pills are not taken on an empty stomach.?? While taking any prescription pain medication you should not drive or drink alcohol. ? * Eneida Nieves RN: PERFORM Event Display: Patient Education Leaflets Authored Date: [id number] NSAID Analgesic Schedule ?? 604 NSAID???s Analgesic Schedule ?? Pain is the primary source of illness following your procedure and can include dehydration, difficulty and painful swallowing, and weight loss. These symptoms can lead to increased post-operative visits and hospital readmission. The best way to control pain is to take pain medications regularly. Your doctor has recommended both Ibuprofen and Acetaminophen (generic/store brands are okay, too). These can be picked up over the counter at your pharmacy of choice. Follow the instructions on the bottle to determine the proper dosage to give. The simplest way to take these medications it to rotate the two at 3-hour intervals. Here is a sample diagram. The time you take your medications may vary from this example. Do not give Ibuprofen more than every 6 hours or Acetaminophen every 4 hours. Do not give Acetaminophen if your doctor has given you a prescription that contains Acetaminophen. ? Patient Care team information Care Team Personnel Name: Falguni Uriostegui DO Position: S Resident Member Role: PCP Address: Address: [address] [place] [address]- [place] Care Team Related Persons Name: Zakia MELENDREZ Address: [address] Address: home [address] [place] [address] [place] Name: OVIDIO BORRERO Address: home [address] [place] [address] [place] Name: OVIDIO BORRERO Address: home [address] [place] [address]
--- OUTSIDE RECORDS SUMMARY | 2023-08-29 01:16 | XMS_ITS | Continuity of Care Document ---
Author Name Unknown Organization [facility] Address [address] [place] [address]- Care Team Providers Care Animal Services Officer Name Role Phone Grayaenl TRINHHoperenato Primary Care Physician Encounter [facility] Date(s): 05/24/23 - 06/23/[address] [address]- Attending Physician: Keyon Mitchell Admitting Physician: AdmKeyon lopez Referring Physician: AdmtrKeyon Allergies, Adverse Reactions, Alerts Substance Reaction Severity [...] Vaccine (oldterm) 08/07/08 Given Measles/Mumps/Rubella Virus Vaccine 8/3/06 Given Measles/Mumps/Rubella Virus Vaccine 09/09/02 Given Poliovirus [...] (PCV7) (oldterm) 01 G iven 1Result Comment: [id number] 2Admin Note: VIS DATED 04/09/2013 GIVEN. 3Admin [...] 12:11:00 EST, Aerosol, Route to Pharmacy Electronically, [id number], [facility]/pharmacy #0373, 157.48, cm,... Start Date: [...] 13:42:00 EDT, Powder, Route to Pharmacy Electronically, [id number], [facility]/pharmacy #0373, 157,... Start Date: 07/27/22 Status: Ordered naproxen 500 mg oral delayed release tablet 1 tablet = 500 mg, By Mouth, 2 times a day, # 28 tablet, 0 Refills, Maintenance, 06/02/23 9:30:00 EDT, EC Tablet, [facility]/pharmacy #0373, Partial fill upon patient request if the prescription is for a schedule II opioid drug., 158, cm, 06/02/23 8:23:00 ED... Start Date: 06/02/23 Status: Ordered valACYclovir 500 mg oral tablet 1, tablet, By Mouth, Every 12 hours, # 60 tablet, Refills 0, Maintenance, 12/23/22 8:56:00 EDT, Route to Pharmacy Electronically, [id number], 157.48, cm, 11/25/22 9:46:00 EST, Height, 81.3, [...] Team Personnel Name: Falguni Uriostegui DO Position: [facility] Resident Member Role: PCP Address: Address: [address] [place] [address]- Care Team Related Persons Name: Zakia MELENDREZ Address: [id number] Address: home [address] [place] [address] [place] Name: OVIDIO BORRERO Address: [address] [place] [address] [place] Name: OVIDIO BORRERO Address: [address] [place] [address]
[2023-08-29 01:22] LABS: Alanine Aminotransferase 10 U/L (0-31); Albumin Level 4.4 g/dL (3.5-5.0); Alkaline Phosphatase 63 U/L (39-117); Anion Gap 13 (12-20); Aspartate Amino Transferase 17 U/L (5-31); Bilirubin Direct 0.5 mg/dL (0.0-0.5); Bilirubin Total 1.4 mg/dL (0.0-1.0); Blood Urea Nitrogen 9 mg/dL (9-16); Calcium 9.7 mg/dL (8.4-10.2); Carbon Dioxide 18 mmol/L (22-29); Chloride 109 mmol/L (96-108); Creatinine Clr Calc Pharmacy 103.8; Estimated Glomerular Filt Rate > 60; Glucose Random 115 mg/dL (60-115); HCG Quantitative < 2 mIU/mL; Lipase 11 U/L (8-78); Potassium 3.8 mmol/L (3.3-5.1); Sodium 136 mmol/L (135-145); Total Protein 8.1 g/dL (6.5-8.0)
[2023-08-29] MEDS: Ketorolac Tromethamine 15 MG/ML VIAL IVPUSH (01:23)
[2023-08-29] MEDS: 0.9 % Sodium Chloride 1,000 ML 999 ML IV ×3 (01:23→04:50)
[2023-08-29 02:09] LABS: Influenza A PCR NEGATIVE (Negative); Influenza B PCR NEGATIVE (Negative); Resp Syncy Virus RNA Qual PCR NEGATIVE (Negative); SARS COV2 PCR INHOUSE NEGATIVE (Negative)
--- NOTE | 2023-08-29 02:33 | PC.NURSE ---
pt ambulating to bathroom with steady gait, pt instructed on how to obtain urine sample.
[2023-08-29 02:44] LABS: Appearance Urine Clear; Color Urine Yellow; Glucose Urine UA Negative (Negative); Leukocyte Esterase Urine Small (1+) (Negative); Nitrite Urine Negative (Negative); PH 7.5 (5.0-9.0); Specific Gravity - Urine 1.015 (1.005-1.025); UMIC TRIGGER UACC YES; Urine Blood Negative (Negative); Urine Ketones Trace mg/dL (Negative); Urine Protein Negative (Neg-Trace)
[2023-08-29 03:03] LABS: Bacteria Urine Trace (None Seen); Hyaline Casts Urine 0-2 /LPF (0-2); RBC Urine 0-2 /HPF (0-2); UACC Culture Trigger YES
[2023-08-29 03:39] VITALS: BP 84/48; PULSE 96; RESP 16; TEMP 36.9; O2SAT 96
[2023-08-29 03:44] VITALS: BP 95/49
[2023-08-29] MEDS: iohexoL 350 MG/ML 100 ML INFUS..BTL 85 ML IV (04:47)
[2023-08-29 06:25] VITALS: BP 105/48; PULSE 93; RESP 15; TEMP 37.1; O2SAT 98
[2023-08-29] MEDS: Doxycycline Monohydrate 100 MG CAPSULE PO (06:42)
== END 2023-08-29 06:47 | disposition home or self-care (01) ==
PROVIDERS: Emergency Provider Emergency Medicine Emergency Medical Services
DX: J18.9 Pneumonia, unspecified organism (principal); R11.2 Nausea with vomiting, unspecified; M79.10 Myalgia, unspecified site; R50.9 Fever, unspecified; R10.9 Unspecified abdominal pain; R05.9 Cough, unspecified; Z20.822 Contact with and (suspected) exposure to COVID-19; Z20.828 Contact with and (suspected) exposure to other viral communicable diseases; Z87.891 Personal history of nicotine dependence
CPT/HCPCS: 0241U; 36415; 71045; 74177; 80048; 80076; 81001; 83690; 84702; 85025; 87086; 87088; 87186; 96361; 96374; 99285; J1885; Q9967

== ENCOUNTER 2023-10-18 09:51 | Emergency (ER) | payer OTHER, SELFPAY ==
--- NOTE | ~2023-10-18 | XR_ITS ---
EXAMINATION: XR CHEST CLINICAL INFORMATION: Fever and cough COMPARISON: Chest x-ray 08/29/2023. TECHNIQUE: 2 views of the chest were obtained. FINDINGS: No significant abnormality is noted involving the heart, lungs, mediastinum, bony thorax or soft tissues. XR/XR chest 2V IMPRESSION: Unremarkable chest examination.
[2023-10-18 10:41] VITALS: BP 109/65; PULSE 103; RESP 18; TEMP 37; O2SAT 98; BMI 28.3
[2023-10-18 11:06] LABS: Basophils Percent Auto 0.2 % (0-2); Eosinophils Absolute Auto 0.1 X10*3/uL (0.0-0.4); Eosinophils Percent Auto 0.3 % (0-4); Hematocrit 40.1 % (37.0-47.0); Hemoglobin 13.5 g/dl (12.0-16.0); Imm Gran Abs Auto 0.11 X10*3/uL (0.00-0.03); Imm Gran Pct Auto 0.6 % (0.0-0.4); Lymphocytes Absolute Auto 1.9 X10*3/uL (1.2-4.9); Lymphocytes Percent Auto 10.9 % (20-40); MANUAL DIFF FLAG NO; Mean Corpuscular HGB Conc 33.7 g/dl (31.0-35.0); Mean Corpuscular Volume 86.1 fL (80.0-98.0); Mean Platelet Volume 9.7 fL (9.4-12.3); Monocytes Absolute Auto 1.1 X10*3/uL (0.1-1.2); Monocytes Percent Auto 6.5 % (2-11); Neutrophils Absolute Auto 14.1 x10*3/uL (2.0-8.3); Neutrophils Percent Auto 81.5 % (45-73); Platelet Count 267 X10*3/uL (160-400); Red Blood Count 4.66 X10*6/uL (4.20-5.50); Red Cell Distribution Width 13.2 % (11.0-16.0); White Blood Count 17.3 X10*3/uL (4.8-10.8)
[2023-10-18 11:21] LABS: Anion Gap 14 (12-20); Blood Urea Nitrogen 7 mg/dL (9-16); Calcium 9.6 mg/dL (8.4-10.2); Carbon Dioxide 26 mmol/L (22-29); Chloride 104 mmol/L (96-108); Creatinine Clr Calc Pharmacy 101.2; Estimated Glomerular Filt Rate > 60; Glucose Random 122 mg/dL (60-115); Potassium 3.6 mmol/L (3.3-5.1); Sodium 140 mmol/L (135-145)
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
[2023-10-18 14:19] LABS: IDNOW Serial# 08D9AD1C; Strep A Nucleic Acid Negative (Negative)
[2023-10-18 14:31] LABS: COVID-19 Test Negative (Negative); IDNOW Serial# 152EDE1D; IDNOW Serial# 9DB6401D; Influenza A Negative (Negative); Influenza B2 Negative (Negative)
--- OUTSIDE RECORDS SUMMARY | 2023-10-18 14:49 | XMS_ITS | Continuity of Care Document ---
Author Name Unknown Organization [facility] Address [address] [place] [address]- Care Team Providers Care Aluminum Hydroxide Process Operator Name Role Phone Erika Uriostegui DOjose Primary Care Physician Encounter [facility] Date(s): 09/13/23 - 10/13/23 [facility] [address] [place] [address]- Attending Physician: Keyon Mitchell Admitting Physician: AdmtrKeyon Referring Physician: Admtr ArRashawn Allergies, Adverse Reactions, Alerts Substance Reaction Severity [...] (PCV7) (oldterm) 01 G iven 1Result Comment: [id number] 2Admin Note: VIS DATED 04/09/2013 GIVEN. 3Admin [...] 12:11:00 EST, Aerosol, Route to Pharmacy Electronically, [id number], [facility]/pharmacy #[id number], 157.48, cm,... Start Date: [...] 13:42:00 EDT, Powder, Route to Pharmacy Electronically, [id number], [facility]/pharmacy #[id number], 157,... Start Date: 07/27/22 Status: Ordered naproxen 500 mg oral delayed release tablet 1 tablet = 500 mg, By Mouth, 2 times a day, # 28 tablet, 0 Refills, Maintenance, 06/02/23 9:30:00 EDT, EC Tablet, [facility]/pharmacy #[id number], Partial fill upon patient request if the prescription is for a schedule II opioid drug., 158, cm, 06/02/23 8:23:00 ED... Start Date: 06/02/23 Status: Ordered ondansetron 4 mg oral tablet 1 tablet = 4 mg, By Mouth, Every 8 hours, PRN Nausea & Vomiting, # 21 tablet, 0 Refills, Maintenance, 07/28/23 11:52:00 EDT, Tablet, [facility]/pharmacy #[id number], Partial fill upon patient request if the prescription is for a schedule II opioid drug., 158, cm,... Start Date: 07/28/23 Status: Ordered Tylenol Extra Strength 500 mg oral tablet 1 tablet = 500 mg, By Mouth, Every 4 hours, PRN for fever, # 60 tablet, 0 Refills, Maintenance, 07/28/23 11:53:00 EDT, Tablet, [facility]/pharmacy #[id number], Partial fill upon patient request if the prescription is for a schedule II opioid drug., 158, cm, ... Start Date: 07/28/23 Status: Ordered valACYclovir 500 mg oral tablet 1, tablet, By Mouth, Every 12 hours, # 60 tablet, Refills 0, Maintenance, 12/23/22 8:56:00 EDT, Route to Pharmacy Electronically, [id number], 157.48, cm, 11/25/22 9:46:00 EST, Height, 81.3, kg, 11/23/22 9:35:00 EST, Dry Weight Start Date: 12/23/22 Status: Ordered Ventolin HFA 108 mcg/inh inhalation aerosol with adapter 2 puffs, Inhalation, 4 times a day, PRN for wheezing, # 18 Gm, 3 Refills, Maintenance, 07/28/23 11:55:00 EDT, Aerosol, [id number], Partial fill upon patient request if the prescription is fora schedule II opioid drug., 158, cm, 07/28/23 10:55... Start Date: 07/28/23 Status: Ordered Problem List Condition Confirmation Course [...] S Resident Member Role: PCP Address: Address: [address] [place] [id number]- Care Team Related Persons Name: Zakia MELENDREZ Address: [id number] Address: home [address] [place] [address] Name: OVIDIO BORRERO Address: home [address] [place] [id number] Name: OVIDIO BORRERO Address: [address] [address]
--- OUTSIDE RECORDS SUMMARY | 2023-10-18 14:50 | XMS_ITS | Continuity of Care Document ---
Author Name Unknown Organization [facility] Address [address] [place] [address]- Care Team Providers Care Veterinary Pharmacologist Name Role Phone Falguni Uriostegui DO Primary Care Physician [facility]counter [facility] Date[facility]s): 07/31/23 - 10/13/23 [facility] [address] [place], [place] [address] Attending Physician: Ludwin Farris MD Admitting Physician: Ludwin Farris MD Allergies, Adverse Reactions, Alerts Substance Reaction [...] (PCV7) (oldterm) 01 G iven 1Result Comment: [id number] 2Admin Note: VIS DATED 04/09/2013 GIVEN. 3Admin [...] 12:11:00 EST, Aerosol, Route to Pharmacy Electronically, [id number], [facility]/pharmacy #[id number], 157.48, cm,... Start Date: [...] 13:42:00 EDT, Powder, Route to Pharmacy Electronically, [id number], [id number],... Start Date: 07/27/22 Status: Ordered naproxen 500 mg oral delayed release tablet 1 tablet = 500 mg, By Mouth, 2 times a day, # 28 tablet, 0 Refills, Maintenance, 06/02/23 9:30:00 EDT, EC Tablet, [facility]/pharmacy #[id number], Partial fill upon patient request if the prescription is for a schedule II opioid drug., 158, cm, 06/02/23 8:23:00 ED... Start Date: 06/02/23 Status: Ordered ondansetron 4 mg oral tablet 1 tablet = 4 mg, By Mouth, Every 8 hours, PRN Nausea & Vomiting, # 21 tablet, 0 Refills, Maintenance, 07/28/23 11:52:00 EDT, Tablet, [facility]/pharmacy #[id number], Partial fill upon patient request if the prescription is for a schedule II opioid drug., 158, cm,... Start Date: 07/28/23 Status: Ordered Tylenol Extra Strength 500 mg oral tablet 1 tablet = 500 mg, By Mouth, Every 4 hours, PRN for fever, # 60 tablet, 0 Refills, Maintenance, 07/28/23 11:53:00 EDT, Tablet, [facility]/pharmacy #[id number], Partial fill upon patient request if the prescription is for a schedule II opioid drug., 158, cm, ... Start Date: 07/28/23 Status: Ordered valACYclovir 500 mg oral tablet 1, tablet, By Mouth, Every 12 hours, # 60 tablet, Refills 0, Maintenance, 12/23/22 8:56:00 EDT, Route to Pharmacy Electronically, [id number], 157.48, cm, 11/25/22 9:46:00 EST, Height, 81.3, [...] S Resident Member Role: PCP Address: Address: [address] [place] [id number]- Care Team Related Persons Name: Zakia MELENDREZ Address: Address: [address] [place] [address] Name: OVIDIO BORRERO Address: [address] [place] [address] Name: OVIDIO BORRERO Address: [address] [place] [address] [place]
[2023-10-18 15:55] VITALS: BP 118/67; PULSE 111; RESP 16; O2SAT 99
[2023-10-18 16:32] VITALS: BP 117/64; PULSE 111; RESP 16; TEMP 37.8; O2SAT 98
[2023-10-18 16:52] LABS: Alanine Aminotransferase 8 U/L (0-31); Albumin Level 4.3 g/dL (3.5-5.0); Alkaline Phosphatase 71 U/L (39-117); Aspartate Amino Transferase 13 U/L (5-31); Bilirubin Direct 0.2 mg/dL (0.0-0.5); Bilirubin Total 0.8 mg/dL (0.0-1.0); C Reactive Protein 8.39 mg/dL (< or = 0.50); Lipase 12 U/L (8-78)
[2023-10-18 16:56] LABS: HCG Quantitative < 2 mIU/mL
[2023-10-18] MEDS: 0.9 % Sodium Chloride 1,000 ML 999 ML IV (17:01)
[2023-10-18 17:04] LABS: Appearance Urine Turbid; Color Urine Yellow; Glucose Urine UA Negative (Negative); Leukocyte Esterase Urine Moderate (2+) (Negative); Nitrite Urine Negative (Negative); UMIC TRIGGER UACC YES; Urine Blood Trace (Negative); Urine Ketones Negative (Negative); Urine Protein 30 (1+) mg/dL (Neg-Trace)
[2023-10-18 17:09] LABS: Bacteria Urine 4+ (None Seen); Hyaline Casts Urine 0-2 /LPF (0-2); UACC Culture Trigger YES; WBC Urine >50 /HPF (0-5)
[2023-10-18 17:12] LABS: Amphetamine Screen Urine Not Detected (Not Detect); Barbiturates, Urine Not Detected (Not Detect); Benzodiazepines Screen Urine Not Detected (Not Detect); Cannabinoid Screen Urine POSITIVE (Not Detect); Cocaine Screen Urine Not Detected (Not Detect); Fentanyl, urine Not Detected (Not Detect); Opiate Screen Urine Not Detected (Not Detect); Phencyclidine Screen Urine Not Detected (Not Detect)
[2023-10-18] MEDS: diphenhydrAMINE HCL 50 MG/ML VIAL 25 MG IVPUSH (17:16)
[2023-10-18] MEDS: Ketorolac Tromethamine 15 MG/ML VIAL IVPUSH (17:16)
[2023-10-18] MEDS: droPERidol 5 MG/2 ML VIAL 1.25 MG IVPUSH (17:17)
--- NOTE | 2023-10-18 17:27 | PC.NURSE ---
pt a&ox4, tachycardic, febrile, other vss, 20G IV placed right AC, 1L NS running, medicated per DEC. pt reports 10/10 neck and abd pain w associated nausea/vomiting.
--- NOTE | 2023-10-18 18:35 | PC.NURSE ---
delay in abx d/t tech obtaining blood cultures.
[2023-10-18 18:40] VITALS: BP 93/49; PULSE 103; RESP 16; TEMP 37.4; O2SAT 98
[2023-10-18] MEDS: cefTRIAXone sodium 1 GM in 0.9 % Sodium Chloride 50 ML IV (18:40)
[2023-10-18] MEDS: Acetaminophen 325 MG TABLET 975 MG PO (18:40)
[2023-10-18 18:43] LABS: Lactic Acid 0.5 mmol/L (0.5-2.0)
--- NOTE | 2023-10-18 18:45 | PC.NURSE ---
pt medicated per DEC. reporting improvement in pain/fever.
== END 2023-10-18 19:48 | disposition home or self-care (01) ==
PROVIDERS: Emergency Medicine; Physician Assistant; Registered Nurse Emergency; Emergency Provider Emergency Medicine
DX: N39.0 Urinary tract infection, site not specified (principal); R50.9 Fever, unspecified; R10.9 Unspecified abdominal pain; Z98.51 Tubal ligation status; Z87.891 Personal history of nicotine dependence; Z11.52 Encounter for screening for COVID-19
CPT/HCPCS: 36415; 71046; 80048; 80076; 80307; 81001; 83605; 83690; 84702; 85025; 86140; 87040; 87086; 87088; 87186; 87502; 87635; 87651; 96361; 96365; 96375; 99285; J0696; J1200; J1790; J1885

== ENCOUNTER 2024-04-03 10:23 | Emergency (ER) | payer OTHER, SELFPAY ==
--- NOTE | ~2024-04-03 | US_ITS ---
EXAMINATION: US PELVIS CLINICAL INFORMATION: Abdominal pain. LMP 03/17/2024. COMPARISON: CT abdomen/pelvis 08/29/2023 Pelvic ultrasound 04/08/2022 TECHNIQUE: Ultrasound of the pelvis is performed using both transabdominal and transvaginal transducers along with Doppler. Transvaginal imaging is performed due to inadequate visualization transabdominally. FINDINGS: Uterus: The uterus is anteverted and measures 8.0 x 3.4 x 5.2 cm. cm. Uterine echotexture is heterogeneous. The double wall endometrial thickness is 10 mm. Adnexa: Both ovaries are visualized. There is normal color flow to the adnexa. No free fluid in the pelvis. Right ovary measures 3.1 x 1.1 x 1.6 cm. Left ovary measures 3.2 x 1.9 x 3.0 cm. US/US pelvic and transvaginal IMPRESSION: Unremarkable pelvic ultrasound.
[2024-04-03 10:36] VITALS: BP 115/51; PULSE 81; RESP 18; TEMP 36.6; O2SAT 98; BMI 28.1
[2024-04-03 10:53] LABS: MANUAL DIFF FLAG NO
[2024-04-03 10:55] LABS: Basophils Percent Auto 0.4 % (0-2); Eosinophils Absolute Auto 0.4 X10*3/uL (0.0-0.4); Eosinophils Percent Auto 4.1 % (0-4); Hematocrit 39.9 % (37.0-47.0); Hemoglobin 13.5 g/dl (12.0-16.0); Imm Gran Abs Auto 0.02 X10*3/uL (0.00-0.03); Imm Gran Pct Auto 0.2 % (0.0-0.4); Lymphocytes Absolute Auto 1.9 X10*3/uL (1.2-4.9); Lymphocytes Percent Auto 21.9 % (20-40); Mean Corpuscular HGB Conc 33.8 g/dl (31.0-35.0); Mean Corpuscular Hemoglobin 28.8 pg (27.0-33.0); Mean Corpuscular Volume 85.1 fL (80.0-98.0); Mean Platelet Volume 9.8 fL (9.4-12.3); Monocytes Absolute Auto 0.3 X10*3/uL (0.1-1.2); Monocytes Percent Auto 3.6 % (2-11); Neutrophils Percent Auto 69.8 % (45-73); Platelet Count 268 X10*3/uL (160-400); Red Blood Count 4.69 X10*6/uL (4.20-5.50); Red Cell Distribution Width 14.2 % (11.0-16.0); White Blood Count 8.5 X10*3/uL (4.8-10.8)
[2024-04-03 11:12] LABS: Alanine Aminotransferase 8 U/L (0-31); Albumin Level 4.4 g/dL (3.5-5.0); Alkaline Phosphatase 64 U/L (39-117); Anion Gap 10 (12-20); Aspartate Amino Transferase 15 U/L (5-31); Bilirubin Total 0.4 mg/dL (0.0-1.0); Blood Urea Nitrogen 13 mg/dL (9-16); Calcium 9.2 mg/dL (8.4-10.2); Carbon Dioxide 26 mmol/L (22-29); Chloride 107 mmol/L (96-108); Creatinine Clr Calc Pharmacy 109.7; Estimated Glomerular Filt Rate > 60; Glucose Random 104 mg/dL (60-115); Lipase 23 U/L (8-78); Potassium 3.8 mmol/L (3.3-5.1); Sodium 139 mmol/L (135-145); Total Protein 7.7 g/dL (6.5-8.0)
--- NOTE | 2024-04-03 11:21 | PC.NURSE ---
first contact with pt, reports severe abd pain worsening over the last few days. reports having my tubes removed one year ago and has been having intermittent lower abd pain since. nausea and vomiting x1 day. Not tolerating PO at home. denies CP/SOB. LMP 03/17/2024, reports heavier bleeding than normal but menstruating only lasted 3 days. Mother at bedside at this time.
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
[2024-04-03] MEDS: 0.9 % Sodium Chloride 1,000 ML 999 ML IV ×2 (11:40→15:12)
[2024-04-03] MEDS: ondansetron HCL 4 MG/2 ML VIAL IVPUSH (11:42)
[2024-04-03] MEDS: Morphine Sulfate 4 MG/ML CARTRIDGE IVPUSH (12:21)
[2024-04-03] MEDS: Ketorolac Tromethamine 15 MG/ML VIAL IVPUSH (12:21)
[2024-04-03 12:23] VITALS: BP 100/47; PULSE 67; RESP 18; O2SAT 97
[2024-04-03 12:30] LABS: Influenza A PCR NEGATIVE (Negative); Influenza B PCR NEGATIVE (Negative); Resp Syncy Virus RNA Qual PCR NEGATIVE (Negative); SARS COV2 PCR INHOUSE NEGATIVE (Negative)
[2024-04-03 12:40] VITALS: BP 122/60; PULSE 69; RESP 16; O2SAT 99
[2024-04-03 13:59] LABS: Appearance Urine Clear; Color Urine Yellow; Glucose Urine UA Negative (Negative); Leukocyte Esterase Urine Negative (Negative); Nitrite Urine Negative (Negative); Specific Gravity - Urine 1.015 (1.005-1.025); Urine Blood Negative (Negative); Urine Ketones 15 mg/dL (Negative); Urine Protein Negative (Neg-Trace)
[2024-04-03 14:51] VITALS: BP 99/55; PULSE 62; RESP 16; TEMP 36.3; O2SAT 100
[2024-04-03 16:05] VITALS: BP 118/49; PULSE 60; RESP 16; TEMP 36.3; O2SAT 100
[2024-04-03 16:08] VITALS: BP 118/49; PULSE 60; RESP 16; TEMP 36.3; O2SAT 100
--- OUTSIDE RECORDS SUMMARY | 2024-04-04 08:24 | XMS_ITS | Continuity of Care Document ---
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 3Admin Note: vis given 05.03.2011 4Admin Note: vis 11/05/07 5Admin Note: vis dated 01/05/2010 given 6Admin Note: GARDASIL #1, VIS DATED 11/30/2011 GIVEN 7Admin Note: VIS dated 12/20/2007 given 8Admin Note: VIS DATED 05/01/08 GIVEN fluvirin by [facility] Medications Bilateral Wrist Splint Bilateral Wrist Splint, See [...] 13:42:00 EDT, Powder, Route to Pharmacy Electronically, [id number], [facility]/pharmacy #[id number], 157,... Start Date: 07/27/22 Status: Ordered naproxen 500 mg oral delayed release tablet 1 tablet = 500 mg, By Mouth, 2 times a day, # 28 tablet, 0 Refills, Maintenance, 06/02/23 9:30:00 EDT, EC Tablet, [facility]/pharmacy #[id number], Partial fill upon patient request if the prescription is for a schedule II opioid drug., 158, cm, 06/02/23 8:23:00 ED... Start Date: 06/02/23 Status: Ordered ondansetron 4 mg oral tablet 1 tablet = 4 mg, By Mouth, Every 8 hours, PRN Nausea & Vomiting, # 21 tablet, 0 Refills, Maintenance, 07/28/23 11:52:00 EDT, Tablet, [facility]/pharmacy #[id number], Partial fill upon patient request if the prescription is for a schedule II opioid drug., 158, cm,... Start Date: 07/28/23 Status: Ordered Tylenol Extra Strength 500 mg oral tablet 1 tablet = 500 mg, By Mouth, Every 4 hours, PRN for fever, # 60 tablet, 0 Refills, Maintenance, 07/28/23 11:53:00 EDT, Tablet, [facility]/pharmacy #[id number], Partial fill upon patient request if the prescription is for a schedule II opioid drug., 158, cm, ... Start Date: 07/28/23 Status: Ordered valACYclovir 500 mg oral tablet 1, tablet, By Mouth, Every 12 hours, # 60 tablet, Refills 0, Maintenance, 12/23/22 8:56:00 EDT, Route to Pharmacy Electronically, [id number], 157.48, cm, 11/25/22 9:46:00 EST, Height, 81.3, kg, 11/23/22 9:35:00 EST, Dry Weight Start Date: 12/23/22 Status: Ordered Ventolin HFA 108 mcg/inh inhalation aerosol with adapter 2 puffs, Inhalation, 4 times a day, PRN NEEDED FOR WHEEZING, # 18 each, 3 Refills, Maintenance, 11/27/23 17:10:00 EST, [id number], 158, cm, 07/28/23 10:55:00 EDT, Height, 70.2, kg, 05/11/23 8:03:00 EDT, Dry Weight Start Date: 11/27/23 Status: Ordered Problem List Condition Confirmation Course [...] S Resident Member Role: PCP Address: Address: [address] [place] [address]- Care Team Related Persons Name: Zakia MELENDREZ Address: [id number] Address: home [address] [place] [address] [place] Name: OVIDIO BORRERO Address: [address] [place] [address] [place] Name: OVIDIO BORRERO Address: [address] [place] [address]
--- OUTSIDE RECORDS SUMMARY | 2024-04-04 08:24 | XMS_ITS | Continuity of Care Document ---
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 3Admin Note: vis given 05.03.2011 4Admin Note: vis 11/05/07 5Admin Note: vis dated 01/05/2010 given 6Admin Note: GARDASIL #1, VIS DATED 11/30/2011 GIVEN 7Admin Note: VIS dated 12/20/2007 given 8Admin Note: VIS DATED 05/01/08 GIVEN fluvirin by [facility] Medications Bilateral Wrist Splint Bilateral Wrist Splint, [...] 13:42:00 EDT, Powder, Route to Pharmacy Electronically, [id number], [facility]/pharmacy #[id number], 157,... [...] 0 Refills, Maintenance, 07/28/23 11:52:00 EDT, Tablet, [facility]/pharmacy #[id number], Partial fill upon patient request if the prescription is for a schedule II opioid drug., 158, cm,... Start Date: 07/28/23 Status: Ordered Tylenol Extra Strength 500 mg oral tablet 1 tablet = 500 mg, By Mouth, Every 4 hours, PRN for fever, # 60 tablet, 0 Refills, Maintenance, 07/28/23 11:53:00 EDT, Tablet, [facility]/pharmacy #[id number], Partial fill upon patient request if the prescription is for a schedule II opioid drug., 158, cm, ... Start Date: 07/28/23 Status: Ordered valACYclovir 500 mg oral tablet 1, tablet, By Mouth, Every 12 hours, # 60 tablet, Refills 0, Maintenance, 12/23/22 8:56:00 EDT, Route to Pharmacy Electronically, [id number], 157.48, cm, 11/25/22 9:46:00 EST, Height, 81.3, kg, 11/23/22 9:35:00 EST, Dry Weight Start Date: 12/23/22 Status: Ordered Ventolin HFA 108 mcg/inh inhalation aerosol with adapter 2 puffs, Inhalation, 4 times a day, PRN NEEDED FOR WHEEZING, # 18 each, 3 Refills, Maintenance, 11/27/23 17:10:00 EST, [id number], 158, cm, 07/28/23 10:55:00 EDT, Height, 70.2, [...] S Resident Member Role: PCP Address: Address: [address] [place] [address]- Care Team Related Persons Name: Zakia MELENDREZ Address: [id number] Address: [address] [place] [address] [place] Name: OVIDIO BORRERO Address: [address] [place] [address] Name: OVIDIO BORRERO Address: [address] [place] [address] [place]
== END 2024-04-03 16:09 | disposition home or self-care (01) ==
PROVIDERS: Physician Assistant Medical; Emergency Provider Emergency Medicine
DX: R10.30 Lower abdominal pain, unspecified (principal); R11.2 Nausea with vomiting, unspecified; J45.909 Unspecified asthma, uncomplicated; Z03.818 Encounter for observation for suspected exposure to other biological agents ruled out
CPT/HCPCS: 0241U; 36415; 76830; 76856; 80053; 81003; 83690; 85025; 96361; 96374; 96375; 99284; 99285; J1885; J2270; J2405

== ENCOUNTER 2024-06-30 07:08 | Inpatient (IN) | payer SELFPAY ==
[2024-06-30] VITALS (8 sets, daily range): BP systolic 95–122; BP diastolic 45–76; PULSE 88–122; RESP 14–19; TEMP 36–37.4; O2SAT 97–99; BMI 25.6; BMI 27.7
--- NOTE | ~2024-06-30 | CT_ITS ---
EXAMINATION: CT ABDOMEN AND PELVIS WITHOUT CONTRAST (STONE STUDY) CLINICAL INFORMATION: Abdomen pain COMPARISON: Portions of previous 06/30/24 TECHNIQUE: Helical scanning was performed with collimation through the abdomen and pelvis using the low-dose CT stone study protocol. No contrast. DLP: 363 mGy-cm. FINDINGS: Visualized lower chest: No suspicious abnormality. ABDOMEN/PELVIS: Liver, Gallbladder, And Biliary Tree: No focal liver lesion. No intrahepatic biliary dilation The gallbladder is contracted. No large opaque calculus or biliary dilation Pancreas: No suspicious abnormality Spleen: Within normal limits Adrenal Glands: Normal Kidneys And Ureters: There is nonspecific fat stranding around the left kidney. Previously there was some altered attenuation within the cortex which is not appreciable on this non-IV contrast examination. Gastrointestinal Tract: No localized colonic wall thickening. No CT evidence of acute appendicitis. There is no suspicious abnormality the stomach. There is no disproportionate small bowel dilation Abdominal Wall: No significant hernia is appreciated. There is abdominal wall soft tissue gas possibly iatrogenic. Lymphovascular Structures And Fluid: There is no abdominal aortic aneurysm. Bladder: The bladder is nearly empty. No definite abnormality. Pelvic Viscera: The uterus appears within normal limits. No suspicious adnexal mass or collection. There is trace amount of nonspecific free pelvic fluid. Musculoskeletal: No acute or suspicious osseous abnormality. CT/CT abdomen pelvis wo IV con IMPRESSION: There is perinephric stranding around the left kidney. This is nonspecific but could be related to infection/inflammation. No drainable perinephric abscess. Electronically signed by: Raffy Culver MD 07/02/2024 04:26 PM EDT
--- NOTE | ~2024-06-30 | CT_ITS ---
EXAMINATION: CT ABDOMEN PELVIS WITH IV CONTRAST CLINICAL INFORMATION: LLQ pain COMPARISON: No prior CT available for comparison. TECHNIQUE: Multidetector volumetric imaging was performed from the superior aspect of the liver through the pubic symphysis 85 mL of Omnipaque 350 injected Sagittal and coronal reformatted images were obtained on the technologist's workstation. This CT examination was performed using dose optimization techniques as appropriate, variously including the following: *Automated exposure control *Adjustment of mA and/or kV according to patient size (this includes techniques or standardized protocols for targeted exams where dose is matched to indication/reason for exam; i.e. extremities or head) *Use of iterative reconstruction technique DLP: 429 mGy-cm FINDINGS: LOWER THORAX: Included lung bases are clear. HEPATOBILIARY: No focal hepatic lesions. No biliary ductal dilatation. GALLBLADDER: Gallbladder unremarkable. SPLEEN: Spleen is normal in size. PANCREAS: No focal mass or ductal dilatation. STOMACH AND GASTROINTESTINAL TRACT: Stomach is grossly unremarkable. There is no bowel distention or thickening. No CT evidence of appendicitis. ADRENALS: No adrenal nodules. KIDNEYS/URETERS: There is ill-defined hypodense area within the lower pole left renal cortex roughly measures 1.5 x 2 cm, adjacent perinephric fat stranding raising the possibility of pyelonephritis. No CT evidence of kidney stone or hydronephrosis. URINARY BLADDER: Partially decompressed. PELVIC VISCERA: Unremarkable PERITONEUM: No free air or fluid. LYMPH NODES: No lymphadenopathy. VASCULAR:Abdominal aorta normal in size, no aneurysm found. BONES, ABDOMINAL WALL AND SOFT TISSUES: Age-appropriate changes of the spine and skeletal system, no destructive osteolytic or osteosclerotic bone lesion found CT/CT abdomen pelvis w IV con IMPRESSION: 1. There is ill-defined hypodense area within the lower pole left renal cortex roughly measures 1.5 x 2 cm, adjacent perinephric fat stranding, although nonspecific, in the right clinical setting raising the possibility of pyelonephritis developing renal abscess. Please correlate with patient's clinical history and laboratory data. Including urine analysis.. Follow ultrasound in 3 months recommended. [address] evidence of kidney stone or hydronephrosis. Electronically signed by: Kristina Dejesus MD 06/30/2024 09:31 AM EDT
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
[2024-06-30 07:26] LABS: MANUAL DIFF FLAG NO
--- OUTSIDE RECORDS SUMMARY | 2024-06-30 07:31 | XMS_ITS | Continuity of Care Document ---
Author Organization [facility] ter Address [address] [place] [address]- Care Team Providers Care Director Of Quality Improvement Name Role Phone Falguni Uriostegui DO Primary Care Physician [phone] Encounter [facility] [place](s): 04/04/24 - 04/04/[address] [address]- Encounter Diagnosis Abdominal pain(Final) - 04/04/24 Discharge Disposition: A-D/C Home Attending Physician: Domi Dennis DO Admitting Physician: Domi Dennis DO Referring Physician: Not on Staff, Referring MD Allergies, Adverse Reactions, Alerts Substance Reaction [...] (PCV7) (oldterm) 01 G iven 1Result Comment: 2299-7105-23 2Admin Note: VIS DATED 04/09/2013 GIVEN. 3Admin Note: vis given 05.03.2011 4Admin Note: vis 11/05/07 5Admin Note: vis dated 01/05/2010 given 6Admin Note: GARDASIL #1, VIS DATED 11/30/2011 GIVEN 7Admin Note: VIS dated 12/20/2007 given 8Admin Note: VIS DATED 05/01/08 GIVEN fluvirin by [employer]vart[employer] Medications Bilateral Wrist Splint Bilateral Wrist Splint, [...] 13:42:00 EDT, Powder, Route to Pharmacy Electronically, [id number], [facility]/pharmacy #[id number], 157,... Start Date: 07/27/22 Status: Ordered MorPHINE Inj 4 mg, Injection, IV Push Slowly, Once, Routine, 04/04/24 10:00:00 EDT, Stop date 04/04/24 10:00:00 EDT Start Date: 04/04/24 Stop Date: 04/04/24 Status: Completed MorPHINE Inj 4 mg, Injection, IV Push Slowly, Once, Routine, 04/04/24 15:00:00 EDT, Stop date 04/04/24 15:00:00 EDT Start Date: 04/04/24 Stop Date: 04/04/24 Status: Completed naproxen 500 mg oral delayed release tablet 1 tablet = 500 mg, By Mouth, 2 times a day, # 28 tablet, 0 Refills, Maintenance, 06/02/23 9:30:00 EDT, EC Tablet, [facility]/pharmacy #[id number], Partial fill upon patient request if the prescription is for a schedule II opioid drug., 158, cm, 06/02/23 8:23:00 ED... Start Date: 06/02/23 Status: Ordered ondansetron 4 mg oral tablet 1 tablet = 4 mg, By Mouth, Every 8 hours, PRN Nausea & Vomiting, # 21 tablet, 0 Refills, Maintenance, 07/28/23 11:52:00 EDT, Tablet, [facility]/pharmacy #[id number], Partial fill upon patient request if the prescription is for a schedule II opioid drug., 158, cm,... Start Date: 07/28/23 Status: Ordered oxyCODONE 5 mg oral tablet 5 mg, 1, tablet, By Mouth, Every 6 hours, PRN, # 5 tablet, Refills 0, Tot. Refills 0, Acute 04/05/24 15:30:00 EDT, as needed for pain, 04/04/24 15:30:00 EDT, Route to Pharmacy Electronically, [facility]/pharmacy #[id number], Partial fill upon patient request if th... Start Date: 04/04/24 Stop Date: 04/05/24 Status: Ordered Tylenol Extra Strength 500 mg oral tablet 1 tablet = 500 mg, By Mouth, Every 4 hours, PRN for fever, # 60 tablet, 0 Refills, Maintenance, 07/28/23 11:53:00 EDT, Tablet, [facility]/pharmacy #[id number], Partial fill upon patient request if the prescription is for a schedule II opioid drug., 158, cm, ... Start Date: 07/28/23 Status: Ordered valACYclovir 500 mg oral tablet 1, tablet, By Mouth, Every 12 hours, # 60 tablet, Refills 0, Maintenance, 12/23/22 8:56:00 EDT, Route to Pharmacy Electronically, [id number], 157.48, cm, 11/25/22 9:46:00 EST, Height, 81.3, kg, 11/23/22 9:35:00 EST, Dry Weight Start Date: 12/23/22 Status: Ordered Ventolin HFA 108 mcg/inh inhalation aerosol with adapter 2 puffs, Inhalation, 4 times a day, PRN NEEDED FOR WHEEZING, # 18 each, 3 Refills, Maintenance, 11/27/23 17:10:00 EST, [id number], 158, cm, 07/28/23 10:55:00 EDT, Height, 70.2, [...] is in Spec Ed.? dyslexia 3Dec 2021 Results Radiology Reports * Exam Date Time Procedure Performing Provider Status 04/04/24 1:[address] Abd/Pelvis W/ IV Contrast Only Trang Decker; [employer] (Verified) Notes: (CT Abd/Pelvis W/ IV Contrast Only) Reason For Exam: Right flank pain;Other: RESULT: CT Abd/Pelvis W/ IV Contrast Only CT Abd/Pelvis W/ IV Contrast Only Hx of Present Illness: : lower abd pain x 4 day +n v : appears uncomfortable denies uti symptoms novag discharge; Reason: Other:; Right flank pain; Clinical Question(s): Abscess. TECHNIQUE: Spiral CT through the abdomen and pelvis with IV contrast formatted in 3 planes. 80 cc of Omnipaque 300 was administered intravenously. This study was performed without oral contrast. Weight-based protocol using automatic tube modulation was used to optimize exposure parameters. COMPARISON: None. FINDINGS: [employer] View Findings, Lines and Tubes: None. Visualized Chest: Lung bases are clear. No pleural effusion. The heart is normal in size. No pericardial effusion. Diaphragm: Normal. Liver: Normal. Gallbladder: No CT evidence of gallbladder pathology. Bile ducts: No biliary ductal dilation. Spleen: Normal. Pancreas: Normal. Adrenal glands: Normal. Kidneys and ureters: No hydronephrosis, stones, or suspicious masses. Bladder: Normal. Reproductive organs: Unremarkable. Stomach, small bowel, and large bowel: Normal. Appendix: Normal. Peritoneum and retroperitoneum: No ascites or pneumoperitoneum. No omental or mesenteric lesions. Lymph nodes: No enlarged lymph nodes. Blood vessels: Normal. No aneurysm. No evidence of venous thrombosis. Abdominal and pelvic wall: Unremarkable. Bones: No acute abnormality. IMPRESSION: Unremarkable CT of the abdomen and pelvis. WSN: [id number] Ordering Physician: Domi Dennis Dictated By: Mariama Vela MD Dictated Date/Time: 04/04/24 2:04 pm Reviewed By: Mariama Vela MD Signed By: Mariama Vela MD Signed Date/Time: 04/04/24 2:04 pm Transcribed By: ELLIOTT Transcribed Date/Time: 04/04/24 1:53 pm Vital Signs Most recent to oldest [Reference Range]: 1 2 3 Height 158 cm (04/04/24 1:39 PM) 158 cm (04/04/24 8:48 AM) Weight 70.5 kg (04/04/24 1:39 PM) 70.5 kg (04/04/24 8:48 AM) Oxygen Saturation [94-100 %] 99 % (04/04/24 1:39 PM) 99 % (04/04/24 8:48 AM) Pulse Rate [55-90 bpm] 65 bpm (04/04/24 1:39 PM) 77 bpm (04/04/24 8:48 AM) Body Mass Index [18.5-24.99 kg/m2] 28.24 kg/m2 *H* (04/04/24 1:39 PM) 28.24 kg/m2 *H* (04/04/24 8:48 AM) Blood Pressure [90-138/55-84 mm Hg] 109/41mm Hg (04/04/24 1:39 PM) 123/59mm Hg (04/04/24 8:48 AM) Respiratory Rate [16-30 br/min] 18 br/min (04/04/24 2:12 PM) 18 br/min (04/04/24 1:39 PM) 18 br/min (04/04/24 9:44 AM) Temperature [96.8-100.4 DegF] 98.5 DegF (04/04/24 8:48 AM) Mode of Delivery (Oxygen) Room air (04/04/24 1:39 PM) Room air (04/04/24 8:48 AM) Blood pressure sites Arm, left (04/04/24 1:39 PM) Arm, left (04/04/24 8:48 AM) Temperature Route Oral (04/04/24 8:48 AM) Dry Weight 70.5 kg (04/04/24 1:39 PM) 70.5 kg (04/04/24 8:48 AM) Social History Social History Type Response Smoking Status Former smoker, quit more than 30 days ago entered on: 06/02/23 Sex Note * Gunnar Jefferson MD: PERFORM Event Display: Discharge/Transfer Note Hospital Authored Date: [id number] Patient: ??CHAPINCITO MUÑOZ ? Age:??24 Years?Sex:??Female?:??2000?? HPI: 24 F presents with abdominal pain. ?? She reports flares of lower abd pain for the past year following salpingectomy. ?? For the past four days she's had severe pain, no bowel issues, no urine issues. ?? Pain is throbbing, much worse with standing/moving. ?? In the ED: Vitals and labs unremarkable. CT abd/pelvis negative SHe was given morphine and toradol. ?? ROS: As above, rest of full review negative. ?? PMH: as above ?? MEDS: Ibuprofen and tylenol ?? Social: Lives independently ?? EXAM: Temperature?98.5 ?(08:49) Systolic Blood Pressure?109 ?(13:40) Diastolic Blood Pressure?41 ?(13:40) Pulse?65 ?(13:40) SpO2?99 ?(13:40) Respiratory Rate?18 ?(14:13) GEN: Comfortable in bed HEENT: Moist membranes HEART: Warm extremities LUNGS: Breathing comfortably room air ABD: Soft, nontender : No guzman EXT: Warm, no edema NEURO: Alert, oriented x3 PSYCH: Calm and cooperative ?? Assessment and Plan: 24 F presents with abdominal pain. ?? # Abd pain Appears acute on chronic, no red flag features, negatve labs and CT abd/pelvis. - oxycodone 5mg Q6 prn, counseled on no alcohol or driving, modify doses, and warning about risk ofdependence - discharged home Patient Care team information Care Team Personnel Name: Falguni Uriostegui DO Position: S Resident Member Role: PCP Address: Address: [address] [place] [address]- Care Team Related Persons Name: Zakia MELENDREZ Address: [address] Address: home [address] [place] [address] [place] Name: OVIDIO BORRERO Address: [address] [place] [address] [place] Name: OVIDIO BORRERO Address: [place] [address] [place] [address]
--- OUTSIDE RECORDS SUMMARY | 2024-06-30 07:31 | XMS_ITS | Continuity of Care Document ---
Author Organization [facility] Address [address] [place] [address]- Care Team Providers Care Hardboard Grinder Name Role Phone Falguni Uriostegui DO Primary Care Physician Encounter [facility] Date(s): 04/03/24 - 05/03/[address] [address]- Allergies, Adverse Reactions, Alerts Substance Reaction Severity [...] (PCV7) (oldterm) 01 G iven 1Result Comment: [id number] 2Admin Note: VIS DATED 04/09/2013 GIVEN. 3Admin [...] 13:42:00 EDT, Powder, Route to Pharmacy Electronically, [id number], [facility]/pharmacy #[id number], 157,... Start Date: 07/27/22 Status: Ordered naproxen 500 mg oral delayed release tablet 1 tablet = 500 mg, By Mouth, 2 times a day, # 28 tablet, 0 Refills, Maintenance, 06/02/23 9:30:00 EDT, EC Tablet, [facility]/pharmacy #[id number], Partial fill upon patient request if the prescription is for a schedule II opioid drug., 158, cm, 06/02/23 8:23:00 ED... Start Date: 06/02/23 Status: Ordered ondansetron 4 mg oral tablet 1 tablet = 4 mg, By Mouth, Every 8 hours, PRN Nausea & Vomiting, # 21 tablet, 0 Refills, Maintenance, 07/28/23 11:52:00 EDT, Tablet, [facility]/pharmacy #[id number], Partial fill upon patient request if the prescription is for a schedule II opioid drug., 158, cm,... Start Date: 07/28/23 Status: Ordered Tylenol Extra Strength 500 mg oral tablet 1 tablet = 500 mg, By Mouth, Every 4 hours, PRN for fever, # 60 tablet, 0 Refills, Maintenance, 07/28/23 11:53:00 EDT, Tablet, [facility]/pharmacy #[id number], Partial fill upon patient request if the prescription is for a schedule II opioid drug., 158, cm, ... Start Date: 07/28/23 Status: Ordered valACYclovir 500 mg oral tablet 1, tablet, By Mouth, Every 12 hours, # 60 tablet, Refills 0, Maintenance, 12/23/22 8:56:00 EDT, Route to Pharmacy Electronically, [id number], 157.48, cm, 11/25/22 9:46:00 EST, Height, 81.3, kg, 11/23/22 9:35:00 EST, Dry Weight Start Date: 12/23/22 Status: Ordered Ventolin HFA 108 mcg/inh inhalation aerosol with adapter 2 puffs, Inhalation, 4 times a day, PRN NEEDED FOR WHEEZING, # 18 each, 3 Refills, Maintenance, 11/27/23 17:10:00 EST, [id number], 158, cm, 07/28/23 10:55:00 EDT, Height, 70.2, [...] S Resident Member Role: PCP Address: Address: [address] [place] [address]- Care Team Related Persons Name: Zakia MELENDREZ Address: [id number] Address: home [address] [place] [address] [address] [facility] [place] [address] [place] Name: OVIDIO BORRERO Address: [address] [place] [address] [place] Name: OVIDIO BORRERO Address: home [address] [place] [address]
--- OUTSIDE RECORDS SUMMARY | 2024-06-30 07:31 | XMS_ITS | Continuity of Care Document ---
Author Organization [facility] Address [address] [place] [id number]- Care Team Providers Care Library Services Assistant Name Role Phone Falguni Uriostegui DO Primary Care Physician Encounter [facility] [place] Date(s): 05/29/24 - 06/28/[address] [address] Attending Physician: AdmKeyon lopez Admitting Physician: AdmtrKeyon Referring Physician: Admtr, [id number] [...] (PCV7) (oldterm) 01 G iven 1Result Comment: [id number] 2Admin Note: VIS DATED 04/09/2013 GIVEN. 3Admin [...] 13:42:00 EDT, Powder, Route to Pharmacy Electronically, [id number], [facility]/pharmacy #[id number], 157,... Start Date: 07/27/22 Status: Ordered naproxen 500 mg oral delayed release tablet 1 tablet = 500 mg, By Mouth, 2 times a day, # 28 tablet, 0 Refills, Maintenance, 06/02/23 9:30:00 EDT, EC Tablet, [facility]/pharmacy #[id number], Partial fill upon patient request if the prescription is for a schedule II opioid drug., 158, cm, 06/02/23 8:23:00 ED... Start Date: 06/02/23 Status: Ordered ondansetron 4 mg oral tablet 1 tablet = 4 mg, By Mouth, Every 8 hours, PRN Nausea & Vomiting, # 21 tablet, 0 Refills, Maintenance, 07/28/23 11:52:00 EDT, Tablet, [facility]/pharmacy #[id number], Partial fill upon patient request if the prescription is for a schedule II opioid drug., 158, cm,... Start Date: 07/28/23 Status: Ordered Tylenol Extra Strength 500 mg oral tablet 1 tablet = 500 mg, By Mouth, Every 4 hours, PRN for fever, # 60 tablet, 0 Refills, Maintenance, 07/28/23 11:53:00 EDT, Tablet, [facility]/pharmacy #[id number], Partial fill upon patient request if the prescription is for a schedule II opioid drug., 158, cm, ... Start Date: 07/28/23 Status: Ordered valACYclovir 500 mg oral tablet 1, tablet, By Mouth, Every 12 hours, # 60 tablet, Refills 0, Maintenance, 12/23/22 8:56:00 EDT, Route to Pharmacy Electronically, [id number], 157.48, cm, 11/25/22 9:46:00 EST, Height, 81.3, kg, 11/23/22 9:35:00 EST, Dry Weight Start Date: 12/23/22 Status: Ordered Ventolin HFA 108 mcg/inh inhalation aerosol with adapter 2 puffs, Inhalation, 4 times a day, PRN NEEDED FOR WHEEZING, # 18 each, 3 Refills, Maintenance, 11/27/23 17:10:00 EST, [id number], 158, cm, 07/28/23 10:55:00 EDT, Height, 70.2, [...] S Resident Member Role: PCP Address: Address: [address] [place] [address]- Care Team Related Persons Name: Zakia MELENDREZ Address: [id number] Address: home [address] [facility] [place] [address] [place] Name: OVIDIO BORRERO Address: [address] [place] [address] [place] Name: OVIDIO BORRERO Address: [address] [place] [address]
--- OUTSIDE RECORDS SUMMARY | 2024-06-30 07:32 | XMS_ITS | Continuity of Care Document ---
Author Organization [facility] Address [address] [place] [address]- Care Team Providers Care Line Tester Name Role Phone Falguni Uriostegui DO Primary Care Physician [place] [facility] [place]/01/24 - 06/28/[address] [address] Attending Physician: Not on Staff, Attending MD Allergies, Adverse Reactions, Alerts Substance Reaction [...] (PCV7) (oldterm) 01 G iven 1Result Comment: [id number] 2Admin Note: VIS DATED 04/09/2013 GIVEN. 3Admin Note: vis given 05.03.2011 4Admin Note: vis 11/05/07 5Admin Note: vis dated 01/05/2010 given 6Admin Note: GARDASIL #1, VIS DATED 11/30/2011 GIVEN 7Admin Note: VIS dated 12/20/2007 given 8Admin Note: VIS DATED 05/01/08 GIVEN fluvirin by HIGH MOBILITY Medications Bilateral Wrist Splint Bilateral Wrist Splint, [...] 13:42:00 EDT, Powder, Route to Pharmacy Electronically, [id number], [facility]/pharmacy #[id number], 157,... Start Date: 07/27/22 Status: Ordered naproxen 500 mg oral delayed release tablet 1 tablet = 500 mg, By Mouth, 2 times a day, # 28 tablet, 0 Refills, Maintenance, 06/02/23 9:30:00 EDT, EC Tablet, [facility]/pharmacy #[id number], Partial fill upon patient request if the prescription is for a schedule II opioid drug., 158, cm, 06/02/23 8:23:00 ED... Start Date: 06/02/23 Status: Ordered ondansetron 4 mg oral tablet 1 tablet = 4 mg, By Mouth, Every 8 hours, PRN Nausea & Vomiting, # 21 tablet, 0 Refills, Maintenance, 07/28/23 11:52:00 EDT, Tablet, [facility]/pharmacy #[id number], Partial fill upon patient request if the prescription is for a schedule II opioid drug., 158, cm,... Start Date: 07/28/23 Status: Ordered Tylenol Extra Strength 500 mg oral tablet 1 tablet = 500 mg, By Mouth, Every 4 hours, PRN for fever, # 60 tablet, 0 Refills, Maintenance, 07/28/23 11:53:00 EDT, Tablet, [facility]/pharmacy #[id number], Partial fill upon patient request if the prescription is for a schedule II opioid drug., 158, cm, ... Start Date: 07/28/23 Status: Ordered valACYclovir 500 mg oral tablet 1, tablet, By Mouth, Every 12 hours, # 60 tablet, Refills 0, Maintenance, 12/23/22 8:56:00 EDT, Route to Pharmacy Electronically, [id number], 157.48, cm, 11/25/22 9:46:00 EST, Height, 81.3, kg, 11/23/22 9:35:00 EST, Dry Weight Start Date: 12/23/22 Status: Ordered Ventolin HFA 108 mcg/inh inhalation aerosol with adapter 2 puffs, Inhalation, 4 times a day, PRN NEEDED FOR WHEEZING, # 18 each, 3 Refills, Maintenance, 11/27/23 17:10:00 EST, [id number], 158, cm, 07/28/23 10:55:00 EDT, Height, 70.2, [...] Team Personnel Name: Falguni Uriostegui DO Position: [facility] Resident Member Role: PCP Address: Address: [address] [place] [id number]- Care Team Related Persons Name: Zakia MELENDREZ Address: [address] Address: home [address] [place] [address] [place] Name: OVIDIO BORRERO Address: home [address] [place], [place] Name: OVIDIO BORRERO Address: home [address] [place], [place]
[2024-06-30 07:46] LABS: Basophils Percent Auto 0.2 % (0-2); Eosinophils Percent Auto 0.3 % (0-4); Hemoglobin 13.4 g/dl (12.0-16.0); Imm Gran Abs Auto 0.04 X10*3/uL (0.00-0.03); Imm Gran Pct Auto 0.3 % (0.0-0.4); Lymphocytes Absolute Auto 2.1 X10*3/uL (1.2-4.9); Lymphocytes Percent Auto 16.6 % (20-40); Mean Corpuscular HGB Conc 33.5 g/dl (31.0-35.0); Mean Corpuscular Hemoglobin 28.5 pg (27.0-33.0); Mean Corpuscular Volume 84.9 fL (80.0-98.0); Mean Platelet Volume 9.5 fL (9.4-12.3); Monocytes Absolute Auto 1.4 X10*3/uL (0.1-1.2); Monocytes Percent Auto 10.6 % (2-11); Neutrophils Absolute Auto 9.1 x10*3/uL (2.0-8.3); Platelet Count 312 X10*3/uL (160-400); Red Blood Count 4.71 X10*6/uL (4.20-5.50); Red Cell Distribution Width 13.4 % (11.0-16.0); White Blood Count 12.7 X10*3/uL (4.8-10.8)
[2024-06-30 07:55] LABS: Anion Gap 15 (12-20); Blood Urea Nitrogen 7 mg/dL (9-16); Calcium 9.4 mg/dL (8.4-10.2); Carbon Dioxide 25 mmol/L (22-29); Chloride 103 mmol/L (96-108); Creatinine Clr Calc Pharmacy 92.2; Estimated Glomerular Filt Rate > 60; Glucose Random 95 mg/dL (60-115); Potassium 3.5 mmol/L (3.3-5.1); Sodium 139 mmol/L (135-145)
[2024-06-30 07:59] LABS: HCG Quantitative < 2 mIU/mL
[2024-06-30 08:01] LABS: Appearance Urine Cloudy; Color Urine Dark Yellow; Glucose Urine UA Negative (Negative); Leukocyte Esterase Urine Large (3+) (Negative); Nitrite Urine Positive (Negative); Specific Gravity - Urine 1.015 (1.005-1.025); UMIC TRIGGER UACC YES; Urine Blood Trace (Negative); Urine Ketones 15 mg/dL (Negative); Urine Protein 30 (1+) mg/dL (Neg-Trace)
[2024-06-30 08:06] LABS: UPreg QC Valid YES; Urine Pregnancy NEGATIVE (NEGATIVE)
[2024-06-30] MEDS: 0.9 % Sodium Chloride 1,000 ML 999 ML IV ×2 (08:12→09:55)
[2024-06-30] MEDS: Ketorolac Tromethamine 15 MG/ML VIAL 30 MG IVPUSH (08:12)
[2024-06-30] MEDS: diphenhydrAMINE HCL 50 MG/ML VIAL 25 MG IVPUSH (08:14)
[2024-06-30] MEDS: Metoclopramide HCl 10 MG/2 ML VIAL IVPUSH (08:17)
[2024-06-30 08:33] LABS: Bacteria Urine 4+ (None Seen); Hyaline Casts Urine 0-2 /LPF (0-2); UACC Culture Trigger YES; WBC Urine >50 /HPF (0-5)
[2024-06-30] MEDS: iohexoL 350 MG/ML 100 ML INFUS..BTL IV (08:36)
[2024-06-30] MEDS: LORazepam 1 MG TABLET PO (09:24)
[2024-06-30] MEDS: cefuroxime axetiL 250 MG TABLET PO (09:24)
[2024-06-30] MEDS: levoFLOXacin/D5W 500 MG/100 ML PIGGYBACK 100 MG IV (09:51)
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
[2024-06-30 11:12] LABS: Lactic Acid 0.6 mmol/L (0.5-2.0)
[2024-06-30] MEDS: Enoxaparin Sodium 40 MG/0.4 ML SYRINGE SUBCUT (11:18)
[2024-06-30] MEDS: Lactated Ringers 1,000 ML 125 ML IVCONT ×2 (11:19→17:08)
--- NOTE | 2024-06-30 11:28 | PC.NURSE ---
before starting the antibiotic, I confirmed with CLARY Alcantara that cultures were not needed. pt now has 0 pain or nausea, skin wpd, alert, medicated as ordered, eating apple juice and crackers
--- NOTE | 2024-06-30 12:01 | PHA.MEDREC ---
Addendum entered by Juan F Askew RPh 06/30/24 13:05: MED REC CHECKED BY [facility] Original Note: Pharmacy Consult ? Medication Reconciliation Pharmacy has completed the medication reconciliation. Pt states they take rescue inhaler, flovent, and valtrex (BID).
[2024-06-30] MEDS: Albuterol Sulfate 90 MCG 8 GM INHALER 2 PUFF INHALE (15:37)
[2024-06-30] MEDS: 0.9 % Sodium Chloride Flush 3 ML SYRINGE IVFLUSH (15:38)
[2024-06-30] MEDS: Acetaminophen 325 MG TABLET 650 MG PO (17:09)
[2024-06-30] MEDS: valACYclovir HCL 500 MG TABLET PO (21:17)
[2024-06-30] MEDS: Morphine Sulfate 2 MG/ML CARTRIDGE IVPUSH (21:18)
[2024-07-01] MEDS: Lactated Ringers 1,000 ML 125 ML IVCONT ×3 (00:32→18:12)
[2024-07-01 03:08] VITALS: BP 128/68; PULSE 98; RESP 16; TEMP 37.3; O2SAT 97
[2024-07-01] MEDS: Morphine Sulfate 2 MG/ML CARTRIDGE IVPUSH ×2 (03:22→07:27)
[2024-07-01 06:05] VITALS: PULSE 80; RESP 16; O2SAT 99
[2024-07-01] MEDS: Albuterol Sulfate 90 MCG 8 GM INHALER 2 PUFF INHALE (06:05)
[2024-07-01 06:19] LABS: MANUAL DIFF FLAG NO
[2024-07-01 06:26] LABS: Basophils Percent Auto 0.2 % (0-2); Eosinophils Absolute Auto 0.2 X10*3/uL (0.0-0.4); Eosinophils Percent Auto 2.1 % (0-4); Hematocrit 33.2 % (37.0-47.0); Hemoglobin 11.2 g/dl (12.0-16.0); Imm Gran Abs Auto 0.05 X10*3/uL (0.00-0.03); Imm Gran Pct Auto 0.6 % (0.0-0.4); Lymphocytes Absolute Auto 1.7 X10*3/uL (1.2-4.9); Lymphocytes Percent Auto 20.2 % (20-40); Mean Corpuscular HGB Conc 33.7 g/dl (31.0-35.0); Mean Corpuscular Hemoglobin 28.5 pg (27.0-33.0); Mean Corpuscular Volume 84.5 fL (80.0-98.0); Mean Platelet Volume 9.8 fL (9.4-12.3); Monocytes Absolute Auto 0.9 X10*3/uL (0.1-1.2); Monocytes Percent Auto 11.1 % (2-11); Neutrophils Absolute Auto 5.5 x10*3/uL (2.0-8.3); Neutrophils Percent Auto 65.8 % (45-73); Platelet Count 243 X10*3/uL (160-400); Red Blood Count 3.93 X10*6/uL (4.20-5.50); Red Cell Distribution Width 13.3 % (11.0-16.0); White Blood Count 8.3 X10*3/uL (4.8-10.8)
[2024-07-01 06:42] LABS: Anion Gap 11 (12-20); Blood Urea Nitrogen 3 mg/dL (9-16); Calcium 8.7 mg/dL (8.4-10.2); Carbon Dioxide 25 mmol/L (22-29); Chloride 108 mmol/L (96-108); Estimated Glomerular Filt Rate > 60; Glucose Random 93 mg/dL (60-115); Potassium 3.5 mmol/L (3.3-5.1); Sodium 140 mmol/L (135-145)
[2024-07-01 07:00] VITALS: BP 129/66; PULSE 83; RESP 12; TEMP 36.4; O2SAT 99
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
[2024-07-01] MEDS: levoFLOXacin/D5W 750 MG/150 ML PIGGYBACK 100 MG IV (08:27)
[2024-07-01] MEDS: valACYclovir HCL 500 MG TABLET PO ×2 (08:28→21:17)
--- NOTE | 2024-07-01 09:01 | P.PNIM_ITS ---
Subjective Subjective Date of Service: 07/01/24 Review of Systems Follow up pyelonephritis Still with right abdominal pain radiating to the back Some nausea but no vomiting Physical Exam 2 Vital Signs: Vital Signs: Last Vital Signs Temp 97.6 F 07/01/24 07:00 Pulse 83 07/01/24 07:00 Resp 12 07/01/24 07:00 BP 129/66 07/01/24 07:00 Pulse Ox 99 07/01/24 07:00 O2 Del Method Room Air 07/01/24 07:00 BMI result Body Mass Index 27.7 Appearing in no acute distress lung sounds are clear to auscultation heart regular rate rhythm, clear S1, S2 positive bowel sounds, abdomen is soft, nontender neuro patient is alert x3, no focal deficits Objective Data Active Medications Acetaminophen (Acetaminophen 325 Mg Tablet) 650 mg PO Q6H PRN PRN Reason: Pain, Mild (Pain Scale 1-3), fever or headache Last Admin: 06/30/24 17:09 Dose: 650 mg Documented By: OLEG Albuterol Sulfate (Albuterol Sulfate 90 Mcg 8 Gm Inhaler) 2 puff INHALE Q6H PRN PRN Reason: shortness of breath or wheezing Last Admin: 07/01/24 06:05 Dose: 2 puff Documented By: MAMADOU Enoxaparin Sodium (Enoxaparin Sodium 40 Mg/0.4 Ml Syringe) 40 mg SUBCUT Q24H [facility] Last Admin: 06/30/24 11:18 Dose: 40 mg Documented By: VIC Lactated Ringer's (Lr) 1,000 mls @ 125 mls/hr IVCONT .Q8H [facility] Last Admin: 07/01/24 08:27 Dose: 125 mls/hr Documented By: MAXIMILIAN Levofloxacin (Levaquin) 750 mg in 150 mls @ 100 mls/hr IV Q24H [facility] Last Admin: 07/01/24 08:27 Dose: 100 mls/hr Documented By: MAXIMILIAN Magnesium Hydroxide (Milk Of Magnesia 30 Ml Oral.Susp) 30 ml PO DAILY PRN PRN Reason: Constipation Melatonin (Melatonin 3 Mg Tablet) 6 mg PO BEDTIME PRN PRN Reason: Insomnia Morphine Sulfate (Morphine Sulfate 2 Mg/Ml Cartridge) 2 mg IVPUSH Q4H PRN; Protocol PRN Reason: Pain, Severe (Pain Scale 7-10) Last Admin: 07/01/24 07:27 Dose: 2 mg Documented By: MAXIMILIAN Non-Formulary Medication (Fluticasone Propionate) 1 puff INHALE BID [facility] Sodium Chloride (0.9 % Sodium Chloride Flush 3 Ml Syringe) 3 ml IVFLUSH QSHIFT [facility] Last Admin: 07/01/24 07:09 Dose: Not Given Documented By: MAXIMILIAN Non-Admin Reason: IV Running Valacyclovir HCl (Valacyclovir Hcl 500 Mg Tablet) 500 mg PO BID [facility] Last Admin: 07/01/24 08:28 Dose: 500 mg Documented By: MAXIMILIAN Labs 07/01/24 05:28 07/01/24 05:28 Labs: Laboratory Results - last 24 hr 06/30/24 07/01/24 10:42 05:28 MCV 84.5 MCH 28.5 MCHC 33.7 RDW 13.3 Plt Count 243 MPV 9.8 Immature Gran % (Auto) 0.6 H Neut % (Auto) 65.8 Lymph % (Auto) 20.2 [place] % (Auto) 11.1 H Eos % (Auto) 2.1 Baso % (Auto) 0.2 Lymph # (Auto) 1.7 [place] # (Auto) 0.9 Eos # (Auto) 0.2 Baso # (Auto) 0.0 Abs Immat Gran (auto) 0.05 H Absolute Neuts (auto) 5.5 Absolute Nucleated RBC 0.000 Nucleated RBC % (auto) 0.0 Anion Gap 11 L Estim Creat Clear Calc 124.0 Estimated GFR > 60 Random Glucose 93 Lactic Acid 0.6 Calcium 8.7 D Assessment and Plan (1) Pyelonephritis: Status: Acute Plan This is a 24-year-old with history of recurrent UTIs who presents to the emergency department lower abdominal pain found to have findings consistent with pyelonephritis and possible early renal abscess Sepsis due to Acute pyelonephritis with possible early renal abscess Previous urine cultures growing E coli sensitive to levofloxacin - continue IV levofloxacin, started 06/30 urology following Urine culture pending Mild persistent asthma No acute exacerbation Continue baseline inhalers h/o HSV continue valtrex Med rec pending at the time of admission DVT prophylaxis-Lovenox Attending Dr. Meek Code status-full code Quality Stroke Does the patient have a stroke diagnosis?: No VTE Prior VTE?: No VTE Risk Level:: Medical - moderate - high VTE Device Contraindication: N/A - Device Ordered VTE Drug Contraindication: N/A - Med Ordered
--- NOTE | 2024-07-01 09:56 | MHC.CM.PN ---
PT LIVES WITH HER CHILDREN IS INDEPENDENT WILL NOT NEED SERVIES DC PLAN HOME NO SERVIES
[2024-07-01] MEDS: HYDROmorphone HCl 0.5 MG/0.5 ML SYRINGE IVPUSH ×4 (11:08→21:17)
[2024-07-01] MEDS: Enoxaparin Sodium 40 MG/0.4 ML SYRINGE SUBCUT (11:08)
[2024-07-01] MEDS: ondansetron HCL 4 MG/2 ML VIAL IVPUSH (11:08)
[2024-07-01] MEDS: 0.9 % Sodium Chloride Flush 3 ML SYRINGE IVFLUSH (14:19)
[2024-07-01 15:40] VITALS: BP 103/53; PULSE 85; RESP 16; TEMP 36.2; O2SAT 98
[2024-07-01 19:41] VITALS: BP 118/57; PULSE 71; RESP 18; TEMP 36.3; O2SAT 98
[2024-07-02] VITALS (8 sets, daily range): BP systolic 111–127; BP diastolic 59–75; PULSE 69–77; RESP 12–20; TEMP 36.1–36.6; O2SAT 98–99
[2024-07-02] MEDS: HYDROmorphone HCl 0.5 MG/0.5 ML SYRINGE IVPUSH ×4 (01:27→20:29)
[2024-07-02] MEDS: Albuterol Sulfate 90 MCG 8 GM INHALER 2 PUFF INHALE (01:29)
[2024-07-02] MEDS: Lactated Ringers 1,000 ML 125 ML IVCONT ×2 (01:29→09:55)
[2024-07-02] MEDS: levoFLOXacin/D5W 750 MG/150 ML PIGGYBACK 100 MG IV (07:46)
[2024-07-02] MEDS: 0.9 % Sodium Chloride Flush 3 ML SYRINGE IVFLUSH ×2 (07:48→20:31)
[2024-07-02] MEDS: valACYclovir HCL 500 MG TABLET PO ×2 (09:51→20:29)
[2024-07-02] MEDS: ondansetron HCL 4 MG/2 ML VIAL IVPUSH (09:51)
[2024-07-02] MEDS: Enoxaparin Sodium 40 MG/0.4 ML SYRINGE SUBCUT (09:54)
[2024-07-02] MEDS: Milk of Magnesia 30 ML ORAL.SUSP PO (09:54)
--- NOTE | 2024-07-02 11:25 | P.PNIM_ITS ---
Subjective Subjective Date of Service: 07/02/24 Review of Systems Follow up pyelonephritis Still with right abdominal pain radiating to the back Some nausea and vomiting Physical Exam 2 Vital Signs: Vital Signs: Last Vital Signs Temp 98 F 07/02/24 07:43 Pulse 72 07/02/24 07:43 Resp 16 07/02/24 07:43 BP 127/75 07/02/24 07:43 Pulse Ox 98 07/02/24 07:43 O2 Del Method Room Air 07/02/24 07:43 BMI result Body Mass Index 27.7 Appearing in no acute distress lung sounds are clear to auscultation heart regular rate rhythm, clear S1, S2 positive bowel sounds, abdomen is soft, tender to right upper quad neuro patient is alert x3, no focal deficits Objective Data Active Medications Acetaminophen (Acetaminophen 325 Mg Tablet) 650 mg PO Q6H PRN PRN Reason: Pain, Mild (Pain Scale 1-3), fever or headache Last Admin: 06/30/24 17:09 Dose: 650 mg Documented By: OLEG Albuterol Sulfate (Albuterol Sulfate 90 Mcg 8 Gm Inhaler) 2 puff INHALE Q6H PRN PRN Reason: shortness of breath or wheezing Last Admin: 07/02/24 01:29 Dose: 2 puff Documented By: SAMEERA Enoxaparin Sodium (Enoxaparin Sodium 40 Mg/0.4 Ml Syringe) 40 mg SUBCUT Q24H [facility] Last Admin: 07/02/24 09:54 Dose: 40 mg Documented By: JESSE Hydromorphone HCl (Hydromorphone Hcl 0.5 Mg/0.5 Ml Syringe) 0.5 mg IVPUSH Q3H PRN; Protocol PRN Reason: Pain, Severe (Pain Scale 7-10) Last Admin: 07/02/24 07:41 Dose: 0.5 mg Documented By: JESSE Levofloxacin (Levaquin) 750 mg in 150 mls @ 100 mls/hr IV Q24H [facility] Last Infusion: 07/02/24 09:16 Dose: Infused Documented By: JESSE Ceftriaxone Sodium 1 gm/ (Sodium Chloride) 50 mls @ 100 mls/hr IV Q24H [facility] Magnesium Hydroxide (Milk Of Magnesia 30 Ml Oral.Susp) 30 ml PO DAILY PRN PRN Reason: Constipation Last Admin: 07/02/24 09:54 Dose: 30 ml Documented By: JESSE Melatonin (Melatonin 3 Mg Tablet) 6 mg PO BEDTIME PRN PRN Reason: Insomnia Non-Formulary Medication (Fluticasone Propionate) 1 puff INHALE BID [facility] Ondansetron HCl (Ondansetron Hcl 4 Mg/2 Ml Vial) 4 mg IVPUSH Q6H PRN PRN Reason: Nausea and Vomiting Last Admin: 07/02/24 09:51 Dose: 4 mg Documented By: JESSE Sodium Chloride (0.9 % Sodium Chloride Flush 3 Ml Syringe) 3 ml IVFLUSH QSHIFT [facility] Last Admin: 07/02/24 07:48 Dose: 3 ml Documented By: JESSE Valacyclovir HCl (Valacyclovir Hcl 500 Mg Tablet) 500 mg PO BID [facility] Last Admin: 07/02/24 09:51 Dose: 500 mg Documented By: JESSE Labs 07/01/24 05:28 07/01/24 05:28 Microbiology Microbiology Results: Microbiology 06/30/24 Unknown Urine Culture - Final Urine clean catch - Clean Catch Midstream Escherichia coli 06/30/24 10:59 Blood Culture - Preliminary Blood - Venous No growth after 24 hours. 06/30/24 10:40 Blood Culture - Preliminary Blood - Venous No growth after 24 hours. Assessment and Plan (1) Pyelonephritis: Status: Acute Plan This is a 24-year-old with history of recurrent UTIs who presents to the emergency department lower abdominal pain found to have findings consistent with pyelonephritis and possible early renal abscess Sepsis due to Acute pyelonephritis with possible early renal abscess Ecoli UTI Rocephin urology following> no intervention needed, continue abx still with severe pain to RUQ, repeat abd CT neg blood cx anxiety, acute ativan prn Mild persistent asthma No acute exacerbation Continue baseline inhalers h/o HSV continue valtrex DVT prophylaxis-Lovenox Attending Dr. Meek Code status-full code Quality Stroke Does the patient have a stroke diagnosis?: No VTE Prior VTE?: No VTE Risk Level:: Medical - moderate - high VTE Device Contraindication: N/A - Device Ordered VTE Drug Contraindication: N/A - Med Ordered
--- NOTE | 2024-07-02 11:53 | PC.NURSE ---
Pt. teary and crying this am feeling she's not getting better, Provider notified and imaging ordered. Nausea, bowel regimen and pain meds give.
[2024-07-02] MEDS: cefTRIAXone sodium 1 GM in 0.9 % Sodium Chloride 50 ML IV (12:59)
[2024-07-02] MEDS: Piperacillin Sodium/Tazobactam 4.5 GM in 0.9 % Sodium Chloride 100 ML IV (18:21)
[2024-07-02] MEDS: oxyCODONE HCl Immed Release 5 MG TABLET PO (18:32)
[2024-07-03] MEDS: oxyCODONE HCl Immed Release 5 MG TABLET PO ×2 (00:14→09:43)
[2024-07-03] MEDS: Piperacillin Sodium/Tazobactam 4.5 GM in 0.9 % Sodium Chloride 100 ML IV ×2 (00:15→05:32)
[2024-07-03 03:23] VITALS: BP 108/54; PULSE 63; RESP 18; TEMP 36.6; O2SAT 98
[2024-07-03 07:49] LABS: Glucose, Whole Blood 78 mg/dL (60-115)
[2024-07-03 07:55] VITALS: BP 97/55; PULSE 66; RESP 12; TEMP 36.4; O2SAT 97
[2024-07-03] MEDS: 0.9 % Sodium Chloride Flush 3 ML SYRINGE IVFLUSH (08:33)
[2024-07-03] MEDS: valACYclovir HCL 500 MG TABLET PO (09:43)
--- NOTE | 2024-07-03 10:55 | P.DS_ITS ---
DS: Providers Provider Date of Service: 07/03/24 Date of admission: 06/30/24 10:13 Date of discharge: 07/03/24 Primary care physician: Unknown Physician Consults: 06/30/24 10:22 Consult to Urology Routine Consulting Provider: [facility] [place] U[facility] Reason for consultation: recurrent UTI's; renal abscess Has provider been notified: No DS: Diagnosis Discharge Diagnosis (1) Pyelonephritis: Status: Acute DS: Summary Hospital Course Hospital Course: History presenting illness: Date of Service: 06/30/24 Attending physician on admission: Abdon Quinones Chief Complaint: abdominal pain This is a 24-year-old female with history of recurrent UTIs who presents to the emergency department with complaints of abdominal pain. She reports lower abdominal pain with associated cold sweats and decreased p.o. intake since Monday. She has had associated nausea without vomiting. She denies any specific urinary symptoms. In the emergency department she was noted to be tachycardic on arrival. Lab work was significant for leukocytosis of 12.7. She had CT scan of the abdomen which showed likelihood pyelonephritis with possible early renal abscess. Urinalysis was consistent with UTI making pyelonephritis most likely diagnosis. Patient reports history of frequent UTIs, most recently treated approximately 1 month ago although she is unsure what antibiotics she took. In the emergency department she received IV levofloxacin and the decision was made to admit her to the hospital for further management acute pyelonephritis. Hospital course: 24-year-old with history of recurrent UTIs who presents to the emergency department lower abdominal pain found to have findings consistent with pyelonephritis , possible early L renal abscess and admitted to hospital with a diagnosis of Sepsis due to Acute pyelonephritis , treated with IV Zosyn, urine culture grew E coli, resistant to penicillin and blood culture showed no growth, due to persistent abdominal pain a repeat CT abdomen and pelvis was done that showed left perinephric stranding, nonspecific could be related to infection/inflammation no drainable perinephric abscess was noted, no right- sided findings, since patient is afebrile with normal WBC she is being discharged home on Ceftin 500 mg 1 tablet twice daily for total 7 days she is recommended to drink plenty of fluids, she was evaluated by Urology and no intervention was recommended other than to continue antibiotics. Mild persistent asthma no acute exacerbation was noted recommend to continue home inhalers h/o HSV continue valtrex. Time Attestation Discharge Coordination Time (in mins): 36 Quality: Safe Use of Opioids Does Pt have an Active Cancer Diagnosis on the Problem List?: No Quality: Stroke Does the patient have a stroke diagnosis?: No Physical Exam Vital Signs: Vital Signs: Last Vital Signs Temp 97.6 F 07/03/24 07:55 Pulse 66 07/03/24 07:55 Resp 12 07/03/24 07:55 BP 97/55 L 07/03/24 07:55 Pulse Ox 97 07/03/24 07:55 O2 Del Method Room Air 07/03/24 07:55 BMI result Body Mass Index 27.7 Const: Other: General awake alert x3, in no acute distress. Neck supple, no JVD. CVS regular rate rhythm, Respiratory lungs clear to auscultation, no respiratory distress Gastrointestinal abdomen soft, non tender to palpation, bowel sounds audible No CVA tenderness Extremities no edema. Neuro non focal DS: Data Data Completed and Pending Labs on day of discharge: Laboratory Results - last 24 hr 07/03/24 07:29 POC Glucose 78 Preliminary micro results at discharge 06/30/24 10:59 Blood Culture - Preliminary Blood - Venous No growth after 48 hours. 06/30/24 10:40 Blood Culture - Preliminary Blood - Venous No growth after 48 hours. Discharge Plan Discharge Anticipated Discharge Date/Time: 07/03/24 10:36 Patient Disposition: Home, Self-Care Discharge Diagnosis: Acute pyelonephritis Referrals: [facility] [place] Gastroenterology Services [Provider Group] - 1 day Physician,Unknown J [Primary Care Provider] - 2 days Discharge Medications: New cefuroxime axetil 500 mg tablet 500 mg PO Q12H Qty: 14 0RF Continued fluticasone propionate 44 mcg/actuation Hfa Aerosol Inhaler 1 puff INHALATION BID Rx Instructions: administer with spacer albuterol sulfate 90 mcg/actuation HFA aerosol inhaler 2 puff inhalation Q6H PRN (Reason: shortness of breath or wheezing) valacyclovir [Valtrex] 500 mg tablet 500 mg PO BID Qty: 30 1RF Rx Instructions: take with onset on of symptoms, take for three days, may repeat dosing per episode prn Discharge Orders: Discharge Order (Routine); Ordered 07/03/24 Ordered By: Kathryn Malhotra Diet: Advance to usual diet Activity on Discharge: As tolerated Stand Alone Forms: Patient Portal Discharge page Print Language: Fijian Care Plan Goals: Acute pyelonephritis take by mouth antibiotic 1 tablet twice daily for 7 days Drink plenty of fluids Health Concerns: Continue all home medications as before Plan of Treatment: Outpatient follow-up with primary care physician call for appointment Assessment: As above Patient Instructions: Acute Nausea and Vomiting (ED), Abdominal Pain (ED)
[2024-07-03] MEDS: cefuroxime axetiL 500 MG TABLET PO (11:23)
--- NOTE | 2024-07-03 11:34 | MHC.CM.PN ---
pt dcd home self care
== END 2024-07-03 12:13 | disposition home or self-care (01) | DRG 871 ==
LOC: HO.ED 09:40 → HO.EDOVER 10:26 → HO.S3 11:37
PROVIDERS: Admitting Provider Physician Assistant Medical; Emergency Provider Emergency Medicine; Visit Provider Hospitalist
DX: A41.9 Sepsis, unspecified organism (principal); N15.1 Renal and perinephric abscess; N10 Acute pyelonephritis; B96.20 Unspecified Escherichia coli [E. coli] as the cause of diseases classified elsewhere; J45.30 Mild persistent asthma, uncomplicated; Z87.891 Personal history of nicotine dependence; Z87.440 Personal history of urinary (tract) infections; Z79.51 Long term (current) use of inhaled steroids; Z79.899 Other long term (current) drug therapy
CPT/HCPCS: 36415; 74176; 74177; 80048; 81001; 81003; 81025; 82947; 83605; 84702; 85025; 87040; 87086; 87088; 87186; 94640; 99285; J0696; J1170; J1200; J1650; J1885; J1956; J2270; J2405; J2543; J2765; J7120; Q9967

== ENCOUNTER → 2024-06-30 10:13 | Outpatient (BNV) | payer MEDICAID, SELFPAY | PROVIDERS: Admitting Provider Physician Assistant Medical; Emergency Provider Emergency Medicine; Visit Provider Physician Assistant Medical | DX: N12 Tubulo-interstitial nephritis, not specified as acute or chronic (principal) | CPT/HCPCS: 99222; 99232; 99239 ==

== ENCOUNTER → 2024-06-30 10:13 | Outpatient (BNV) | payer MEDICAID, SELFPAY | PROVIDERS: Admitting Provider Physician Assistant Medical; Emergency Provider Emergency Medicine; Visit Provider Urology | DX: N12 Tubulo-interstitial nephritis, not specified as acute or chronic (principal); N39.0 Urinary tract infection, site not specified | CPT/HCPCS: 99222 ==

== ENCOUNTER 2024-08-07 09:11 | Emergency (ER) | payer OTHER, SELFPAY ==
--- NOTE | ~2024-08-07 | CT_ITS ---
EXAMINATION: CT ABDOMEN AND PELVIS WITHOUT CONTRAST CLINICAL INFORMATION: Flank pain COMPARISON: 07/02/2024 TECHNIQUE: Multidetector volumetric imaging was performed from the superior aspect of the liver through the pubic symphysis. Sagittal and coronal reformatted images were obtained on the technologist's workstation. This CT examination was performed using dose optimization techniques as appropriate, variously including the following: *Automated exposure control *Adjustment of mA and/or kV according to patient size (this includes techniques or standardized protocols for targeted exams where dose is matched to indication/reason for exam; i.e. extremities or head) *Use of iterative reconstruction technique DLP: 381 mGy-cm FINDINGS: LUNG BASES: The visualized lung bases are unremarkable. LIVER, GALLBLADDER, AND BILIARY TREE: The liver is normal in size, shape, and attenuation. No focal hepatic lesion or biliary ductal dilatation is present. The gallbladder is unremarkable with no evidence of radiopaque gallstones, gallbladder wall thickening, or obvious pericholecystic inflammatory changes. PANCREAS: Unremarkable. SPLEEN: The spleen subjectively appears slightly prominent. Spleen measures 12.7 cm AP. Please correlate with laboratory values. I do not see any masses or perisplenic collections. ADRENAL GLANDS: Unremarkable. KIDNEYS AND URETERS: The kidneys are normal in size, shape, and attenuation. No hydronephrosis, hydroureter, or calculi seen. No perinephric stranding. BLADDER: Unremarkable. GASTROINTESTINAL TRACT: Bowel obstruction or left lower quadrant inflammatory change. Appendix normal. ABDOMINAL WALL: No significant hernia is appreciated. LYMPH NODES: Normal. VASCULAR: Unremarkable. PELVIC VISCERA: Uterus and adnexal structures unremarkable. No ascites. OSSEOUS STRUCTURES: Unremarkable. CT/CT abdomen pelvis wo IV con IMPRESSION: No evidence for nephrolithiasis or hydronephrosis. The spleen does appear slightly prominent. Please correlate this finding with physical exam and laboratory exam. Fleischner guidelines were followed. Electronically signed by: Temo Parham MD 08/07/2024 12:00 PM EDT
[2024-08-07 09:12] VITALS: BP 99/67; PULSE 109; RESP 16; TEMP 36.8; O2SAT 99; BMI 25.2
--- OUTSIDE RECORDS SUMMARY | 2024-08-07 09:29 | XMS_ITS | Continuity of Care Document ---
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 3Admin [...] 13:42:00 EDT, Powder, Route to Pharmacy Electronically, [id number], [facility]/pharmacy #[id number], 157,... Start Date: 07/27/22 Status: Ordered naproxen 500 mg oral delayed release tablet 1 tablet = 500 mg, By Mouth, 2 times a day, # 28 tablet, 0 Refills, Maintenance, 06/02/23 9:30:00 EDT, EC Tablet, [facility]/pharmacy #[id number], Partial fill upon patient request if the prescription is for a schedule II opioid drug., 158, cm, 06/02/23 8:23:00 ED... Start Date: 06/02/23 Status: Ordered ondansetron 4 mg oral tablet 1 tablet = 4 mg, By Mouth, Every 8 hours, PRN Nausea & Vomiting, # 21 tablet, 0 Refills, Maintenance, 07/28/23 11:52:00 EDT, Tablet, [facility]/pharmacy #[id number], Partial fill upon patient request if the prescription is for a schedule II opioid drug., 158, cm,... Start Date: 07/28/23 Status: Ordered Tylenol Extra Strength 500 mg oral tablet 1 tablet = 500 mg, By Mouth, Every 4 hours, PRN for fever, # 60 tablet, 0 Refills, Maintenance, 07/28/23 11:53:00 EDT, Tablet, [facility]/pharmacy #[id number], Partial fill upon patient request if the prescription is for a schedule II opioid drug., 158, cm, ... Start Date: 07/28/23 Status: Ordered valACYclovir 500 mg oral tablet 1, tablet, By Mouth, Every 12 hours, # 60 tablet, Refills 0, Maintenance, 12/23/22 8:56:00 EDT, Route to Pharmacy Electronically, [facility] ST[id number], 157.48, cm, 11/25/22 9:46:00 EST, Height, 81.3, kg, 11/23/22 9:35:00 EST, Dry Weight Start Date: 12/23/22 Status: Ordered Ventolin HFA 108 mcg/inh inhalation aerosol with adapter 2 puffs, Inhalation, 4 times a day, PRN NEEDED FOR WHEEZING, # 18 each, 3 Refills, Maintenance, 11/27/23 17:10:00 EST, [id number], 158, cm, 07/28/23 10:55:00 EDT, Height, 70.2, [...] Team Personnel Name: Falguni Uriostegui DO Position: [facility] Resident Member Role: PCP Address: Address: [address] [place] [address]- Care Team Related Persons Name: ANEESH NICOLE Address: Address: home [address] [place] [address] Name: OVIDIO BORRERO Address: [address] [place] [address] Name: OVIDIO BORRERO Address: [address] [place] [address]
--- NOTE | 2024-08-07 09:37 | PC.NURSE ---
Pt presents to ED with complaints of right sided ABD pain radiating to right flank area along with N/V X3 days. Reports she has had similar episodes on and off for approx 1 year, being followed by PCP. Does have hx of kidney infections. Reports general malaise and poor PO intake. Alert and oriented, breathing even and unlabored, appears restless and uncomfortable.
[2024-08-07 09:41] LABS: MANUAL DIFF FLAG NO
[2024-08-07 09:45] LABS: Basophils Absolute Auto 0.1 X10*3/uL (0.0-0.2); Basophils Percent Auto 0.5 % (0-2); Eosinophils Absolute Auto 0.2 X10*3/uL (0.0-0.4); Eosinophils Percent Auto 1.8 % (0-4); Hematocrit 43.5 % (37.0-47.0); Hemoglobin 14.5 g/dl (12.0-16.0); Imm Gran Abs Auto 0.04 X10*3/uL (0.00-0.03); Imm Gran Pct Auto 0.3 % (0.0-0.4); Lymphocytes Absolute Auto 2.1 X10*3/uL (1.2-4.9); Lymphocytes Percent Auto 16.5 % (20-40); Mean Corpuscular HGB Conc 33.3 g/dl (31.0-35.0); Mean Corpuscular Hemoglobin 28.3 pg (27.0-33.0); Mean Corpuscular Volume 84.8 fL (80.0-98.0); Mean Platelet Volume 9.5 fL (9.4-12.3); Monocytes Absolute Auto 1.1 X10*3/uL (0.1-1.2); Monocytes Percent Auto 8.4 % (2-11); Neutrophils Absolute Auto 9.2 x10*3/uL (2.0-8.3); Neutrophils Percent Auto 72.5 % (45-73); Platelet Count 334 X10*3/uL (160-400); Red Blood Count 5.13 X10*6/uL (4.20-5.50); Red Cell Distribution Width 14.4 % (11.0-16.0); White Blood Count 12.7 X10*3/uL (4.8-10.8)
[2024-08-07 09:47] LABS: Appearance Urine Clear; Color Urine Dark Yellow; Glucose Urine UA Negative (Negative); Leukocyte Esterase Urine Moderate (2+) (Negative); Nitrite Urine Positive (Negative); Specific Gravity - Urine 1.025 (1.005-1.025); UMIC TRIGGER UACC YES; Urine Blood Negative (Negative); Urine Ketones Trace mg/dL (Negative); Urine Protein 30 (1+) mg/dL (Neg-Trace)
[2024-08-07 09:49] LABS: UPreg QC Valid YES; Urine Pregnancy NEGATIVE (NEGATIVE)
[2024-08-07 10:06] LABS: Alanine Aminotransferase 15 U/L (0-31); Albumin Level 4.9 g/dL (3.5-5.0); Alkaline Phosphatase 67 U/L (39-117); Anion Gap 14 (12-20); Aspartate Amino Transferase 21 U/L (5-31); Bilirubin Direct 0.3 mg/dL (0.0-0.5); Blood Urea Nitrogen 13 mg/dL (9-16); Carbon Dioxide 25 mmol/L (22-29); Chloride 105 mmol/L (96-108); Creatinine Clr Calc Pharmacy 89.5; Estimated Glomerular Filt Rate > 60; Glucose Random 96 mg/dL (60-115); Lipase 16 U/L (8-78); Potassium 3.7 mmol/L (3.3-5.1); Sodium 140 mmol/L (135-145); Total Protein 8.9 g/dL (6.5-8.0)
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
[2024-08-07 10:12] LABS: Bacteria Urine 2+ (None Seen); Hyaline Casts Urine 0-2 /LPF (0-2); RBC Urine 0-2 /HPF (0-2); UACC Culture Trigger YES; WBC Urine 21-50 /HPF (0-5)
[2024-08-07 10:13] VITALS: RESP 16
[2024-08-07] MEDS: Morphine Sulfate 4 MG/ML CARTRIDGE IVPUSH (10:13)
[2024-08-07 10:14] VITALS: PULSE 98; RESP 18; TEMP 36.9
--- NOTE | 2024-08-07 10:21 | PC.NURSE ---
No blood cultures per provider
[2024-08-07 10:33] LABS: Influenza A PCR NEGATIVE (Negative); Influenza B PCR NEGATIVE (Negative); Resp Syncy Virus RNA Qual PCR NEGATIVE (Negative); SARS COV2 PCR INHOUSE NEGATIVE (Negative)
[2024-08-07] MEDS: cefTRIAXone sodium 1 GM VIAL IVPUSH (10:53)
[2024-08-07 12:33] VITALS: BP 120/67; PULSE 92; RESP 16; TEMP 37.1; O2SAT 98
[2024-08-07 12:34] VITALS: BP 120/67; PULSE 92; RESP 16; TEMP 37.1; O2SAT 98
== END 2024-08-07 12:39 | disposition home or self-care (01) ==
PROVIDERS: Emergency Provider Emergency Medicine Emergency Medical Services
DX: N39.0 Urinary tract infection, site not specified (principal); R10.9 Unspecified abdominal pain; J45.909 Unspecified asthma, uncomplicated; R11.2 Nausea with vomiting, unspecified; Z03.818 Encounter for observation for suspected exposure to other biological agents ruled out
CPT/HCPCS: 0241U; 36415; 74176; 80048; 80076; 81001; 81025; 83690; 85025; 87086; 87088; 87147; 87186; 96374; 96375; 99284; J0696; J2270

== ENCOUNTER 2024-08-07 22:14 | Emergency (ER) | payer OTHER, SELFPAY ==
[2024-08-07 22:27] VITALS: BP 129/69; PULSE 122; RESP 15; TEMP 36.6; O2SAT 98; BMI 24.9
== END 2024-08-08 03:05 | disposition left against medical advice (07) ==
LOC: HO.ED 08-08 02:43
PROVIDERS: Emergency Provider Emergency Medicine
DX: R30.9 Painful micturition, unspecified (principal); Z53.21 Procedure and treatment not carried out due to patient leaving prior to being seen by health care provider
CPT/HCPCS: 99281

== ENCOUNTER 2024-10-26 12:39 | Emergency (ER) | payer OTHER, SELFPAY ==
--- NOTE | ~2024-10-26 | CT_ITS ---
CLINICAL HISTORY: lower abdominal pain, nausea, vomiting CT abdomen and pelvis with contrast Comparison: CT/SC/SR - CT ABDOMEN PELVIS W IV CON - 06/30/24 08:19 EDT Findings: CT abdomen: Lung bases are clear. No focal bony lesions. Liver, spleen, pancreas, gallbladder, and adrenal glands are unremarkable. Geographic area of diminished enhancement within the inferomedial aspect of the posterior right kidney measures 1.8 x 1.7 cm in size. There is adjacent perinephric stranding. No stone or hydronephrosis. Diminished enhancement within portions of the left kidney on prior study is no longer evident. Small bowel loops are of normal caliber. No free fluid or free air. CT pelvis: Urinary bladder is decompressed. No bladder calculi. Heterogeneity of the uterus with areas of hyper vascularity along the anterior uterus. No colonic wall thickening or pericolonic inflammatory stranding. No findings of appendicitis. Trace free pelvic fluid. No free air. IMPRESSION: CT findings most characteristic of right pyelonephritis. No abscess or obstruction identified. This document has been electronically signed by: Gilles Meyers MD on 10/26/2024 19:38:08
[2024-10-26 12:58] VITALS: BP 101/65; PULSE 88; RESP 18; TEMP 36.6; O2SAT 99; BMI 23.8
[2024-10-26 13:16] LABS: MANUAL DIFF FLAG NO
[2024-10-26 13:18] LABS: Basophils Percent Auto 0.4 % (0-2); Eosinophils Absolute Auto 0.4 X10*3/uL (0.0-0.4); Eosinophils Percent Auto 5.5 % (0-4); Hemoglobin 13.6 g/dl (12.0-16.0); Imm Gran Abs Auto 0.02 X10*3/uL (0.00-0.03); Imm Gran Pct Auto 0.3 % (0.0-0.4); Lymphocytes Absolute Auto 2.2 X10*3/uL (1.2-4.9); Lymphocytes Percent Auto 31.7 % (20-40); Mean Corpuscular Hemoglobin 28.6 pg (27.0-33.0); Mean Corpuscular Volume 84.2 fL (80.0-98.0); Mean Platelet Volume 9.4 fL (9.4-12.3); Monocytes Absolute Auto 0.5 X10*3/uL (0.1-1.2); Neutrophils Absolute Auto 3.9 x10*3/uL (2.0-8.3); Neutrophils Percent Auto 55.1 % (45-73); Platelet Count 282 X10*3/uL (160-400); Red Blood Count 4.75 X10*6/uL (4.20-5.50); Red Cell Distribution Width 13.2 % (11.0-16.0)
[2024-10-26 13:32] LABS: Alanine Aminotransferase 11 U/L (0-31); Albumin Level 4.3 g/dL (3.5-5.0); Alkaline Phosphatase 56 U/L (39-117); Anion Gap 8 (12-20); Aspartate Amino Transferase 20 U/L (5-31); Bilirubin Direct 0.1 mg/dL (0.0-0.5); Bilirubin Total 0.4 mg/dL (0.0-1.0); Blood Urea Nitrogen 8 mg/dL (9-16); Calcium 9.5 mg/dL (8.4-10.2); Carbon Dioxide 27 mmol/L (22-29); Chloride 108 mmol/L (96-108); Creatinine Clr Calc Pharmacy 101.7; Estimated Glomerular Filt Rate > 60; Glucose Random 105 mg/dL (60-115); Lipase 17 U/L (8-78); Sodium 139 mmol/L (135-145); Total Protein 8.3 g/dL (6.5-8.0)
[2024-10-26 13:41] LABS: HCG Quantitative < 2 mIU/mL
[2024-10-26] MEDS: Ketorolac Tromethamine 15 MG/ML VIAL IVPUSH (16:26)
[2024-10-26] MEDS: Metoclopramide HCl 10 MG/2 ML VIAL 5 MG IVPUSH (16:26)
[2024-10-26] MEDS: diphenhydrAMINE HCL 50 MG/ML VIAL 25 MG IVPUSH (16:27)
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
[2024-10-26] MEDS: Lactated Ringers 1,000 ML 999 ML IV (16:38)
[2024-10-26] MEDS: Morphine Sulfate 4 MG/ML CARTRIDGE IVPUSH (17:24)
[2024-10-26] MEDS: iohexoL 350 MG/ML 100 ML INFUS..BTL 85 ML IV (18:44)
[2024-10-26 19:20] LABS: Appearance Urine Clear; Color Urine Yellow; Glucose Urine UA Negative (Negative); Leukocyte Esterase Urine Small (1+) (Negative); Nitrite Urine Positive (Negative); PH 6.5 (5.0-9.0); Specific Gravity - Urine 1.015 (1.005-1.025); UMIC TRIGGER UACC YES; Urine Blood Negative (Negative); Urine Ketones Trace mg/dL (Negative); Urine Protein Negative (Neg-Trace)
[2024-10-26 19:25] LABS: Bacteria Urine 4+ (None Seen); Hyaline Casts Urine 0-2 /LPF (0-2); RBC Urine 0-2 /HPF (0-2); UACC Culture Trigger YES
[2024-10-26 19:59] VITALS: BP 105/52; PULSE 68; RESP 16; TEMP 36.7; O2SAT 100
[2024-10-26] MEDS: cefTRIAXone sodium 1 GM VIAL IVPUSH (20:07)
[2024-10-26 20:16] VITALS: BP 105/52; PULSE 68; RESP 16; TEMP 36.7; O2SAT 100
[2024-10-27 14:47] LABS: CT PCR NOT DETECTED (Not Detect.); NG PCR NOT DETECTED (Not Detect.)
== END 2024-10-26 20:17 | disposition home or self-care (01) ==
PROVIDERS: Emergency Medicine; Nurse Practitioner Family; Emergency Provider Internal Medicine; PCP Internal Medicine
DX: R10.30 Lower abdominal pain, unspecified (principal); R10.2 Pelvic and perineal pain; R11.2 Nausea with vomiting, unspecified; J45.909 Unspecified asthma, uncomplicated; Z87.891 Personal history of nicotine dependence; F12.90 Cannabis use, unspecified, uncomplicated
CPT/HCPCS: 36415; 74177; 80048; 80076; 81001; 83690; 84702; 85025; 87086; 87088; 87186; 87491; 87591; 96361; 96374; 96375; 99284; J0696; J1200; J1885; J2270; J2765; J7120; Q9967

== ENCOUNTER → 2024-10-26 15:41 | Outpatient (BNV) | payer OTHER, SELFPAY | PROVIDERS: Emergency Provider Internal Medicine; PCP Internal Medicine; Visit Provider Radiology Diagnostic Radiology | DX: R10.30 Lower abdominal pain, unspecified (principal); R11.2 Nausea with vomiting, unspecified | CPT/HCPCS: 74177 ==

== ENCOUNTER 2025-07-06 03:25 | Emergency (ER) | payer SELFPAY ==
[2025-07-06] VITALS (7 sets, daily range): BP systolic 99–108; BP diastolic 51–66; PULSE 95–106; RESP 19–20; TEMP 36.6–37.2; O2SAT 93–99; BMI 21.9
--- NOTE | ~2025-07-06 | XR_ITS ---
CLINICAL HISTORY: dyspnea 1 view chest x-ray. Comparison: CR/SR - XR CHEST 2 VIEWS - 10/18/23 17:12 EST Findings: No consolidation, pneumothorax, or effusion. Bilateral radiopaque nipple rings are in place. Heart size normal. Impression: 1. No acute cardiopulmonary process. No focal pulmonary consolidation. This document has been electronically signed by: Alejandro Farmer MD on 07/06/2025 04:20:02
[2025-07-06 03:48] LABS: MANUAL DIFF FLAG NO
[2025-07-06 03:49] LABS: Hematocrit 42.0 % (37.0-47.0); Hemoglobin 14.4 g/dl (12.0-16.0); Imm Gran Abs Auto 0.02 X10*3/uL (0.00-0.03); Imm Gran Pct Auto 0.2 % (0.0-0.4); Lymphocytes Absolute Auto 2.5 X10*3/uL (1.2-4.9); Mean Corpuscular HGB Conc 34.3 g/dl (31.0-35.0); Mean Corpuscular Hemoglobin 29.2 pg (27.0-33.0); Mean Corpuscular Volume 85.2 fL (80.0-98.0); NRBC Abs Auto 0.000 X10*3/uL (0.0-0.012); NRBC Pct Auto 0.0 /100WBC (0.0-0.2); Platelet Count 287 X10*3/uL (160-400); Red Blood Count 4.93 X10*6/uL (4.20-5.50); White Blood Count 8.1 X10*3/uL (4.8-10.8)
[2025-07-06 03:52] LABS: VBG HCO3 23 mmol/L (22-26); VBG O2 % Saturation 56.0 %
[2025-07-06 03:52] LABS: Venous Blood Gas Refer to POC result
--- NOTE | 2025-07-06 03:55 | PC.NURSE ---
pt a&ox4, respirations even and unlabored. pt reports x1 day of shortness of breath and wheezing. pt states she used her inhaler multiple times without relief. pt noted to have bilateral expiratory wheezing. CLARY Montes aware and at bedside. pt medicated per dec.
[2025-07-06 04:03] LABS: Alanine Aminotransferase 14 U/L (0-31); Albumin Level 4.6 g/dL (3.5-5.0); Alkaline Phosphatase 61 U/L (39-117); Anion Gap 11 (12-20); Aspartate Amino Transferase 20 U/L (5-31); Blood Urea Nitrogen 13 mg/dL (9-16); Calcium 9.4 mg/dL (8.4-10.2); Carbon Dioxide 28 mmol/L (22-29); Chloride 108 mmol/L (96-108); Creatinine Clr Calc Pharmacy 75.3; Estimated Glomerular Filt Rate > 60; Potassium 4.2 mmol/L (3.3-5.1); Sodium 143 mmol/L (135-145); Total Protein 7.8 g/dL (6.5-8.0)
[2025-07-06] MEDS: Magnesium Sulfate/H2O 2 GM/50 ML PIGGYBACK IV (04:04)
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
[2025-07-06] MEDS: Albuterol Sulfate 2.5 MG, Albuterol/Iprat 2.5/0.5MG 3 ML 3 ML INHALE ×2 (04:09→05:04)
[2025-07-06 04:16] LABS: COVID-19 Test Negative (Negative); IDNOW Serial# 152EDE1D
[2025-07-06 04:18] LABS: IDNOW Serial# 16C4AD1C; Influenza B2 Negative (Negative)
--- NOTE | 2025-07-06 05:31 | MHC.EDTECH ---
Ambulatory pulse ox: 96-97% and Pt reported feeling fine , no SOB. PA aware
== END 2025-07-06 06:09 | disposition home or self-care (01) ==
PROVIDERS: Emergency Provider Emergency Medicine; PCP Internal Medicine
DX: J45.901 Unspecified asthma with (acute) exacerbation (principal)
CPT/HCPCS: 36415; 71045; 80053; 82803; 85025; 87502; 87635; 94640; 96365; 99284; J3475

== ENCOUNTER → 2025-07-06 03:46 | Outpatient (BNV) | payer OTHER, SELFPAY | PROVIDERS: Emergency Provider Emergency Medicine; PCP Internal Medicine; Visit Provider Radiology Diagnostic Radiology | DX: R06.00 Dyspnea, unspecified (principal) | CPT/HCPCS: 71045 ==